=== PATIENT | male | born 1970 | race Two or more races ===

== ENCOUNTER 2020-06-14 15:56 | Outpatient (REF) | payer OTHER, SELFPAY ==
[2020-06-14 16:52] LABS: Basophils Percent Auto 0.3 % (0-2); Hemoglobin 13.6 g/dl (14.0-18.0); Imm Gran Abs Auto 0.02 X10*3/uL (0.00-0.03); Imm Gran Pct Auto 0.2 % (0.0-0.4); Mean Corpuscular HGB Conc 33.2 g/dl (31.0-36.0); Mean Corpuscular Hemoglobin 31.5 pg (27.0-33.0); Mean Corpuscular Volume 94.9 fL (80-98); Red Blood Count 4.32 X10*6/uL (4.60-5.80); Red Cell Distribution Width 12.6 % (11.0-16.0); SCAN SMEAR FLAG 1
[2020-06-14 16:54] LABS: Eosinophils Absolute Auto 0.2 X10*3/uL (0.0-0.4); Eosinophils Percent Auto 2.6 % (0-4); Lymphocytes Absolute Auto 3.1 X10*3/uL (1.2-4.9); Lymphocytes Percent Auto 34.8 % (20-40); MANUAL DIFF FLAG NO; Mean Platelet Volume 13.7 fL (9.4-12.4); Monocytes Absolute Auto 0.6 X10*3/uL (0.1-1.2); Monocytes Percent Auto 7.2 % (2-11); Neutrophils Absolute Auto 4.9 X10*3/uL (2.0-8.3); Neutrophils Percent Auto 54.9 % (45-73); Platelet Count 132 X10*3/uL (160-400); White Blood Count 8.9 X10*3/uL (4.8-10.8)
[2020-06-14 16:55] LABS: PLT ABN DIST 1
[2020-06-14 17:46] LABS: Carbamazepine Tegretol 7.1 mcg/mL (5.0-12.0)
== END 2020-06-14 15:57 | disposition home or self-care (01) ==
LOC: HO.LAB 15:56
PROVIDERS: PCP Internal Medicine; Visit Provider Psychiatry & Neurology Neurology
DX: G44.049 Chronic paroxysmal hemicrania, not intractable (principal)
CPT/HCPCS: 36415; 80156; 85025

== ENCOUNTER 2020-10-23 06:58 | Outpatient (REF) | payer OTHER, SELFPAY ==
[2020-10-23 07:36] LABS: Glucose Urine UA NEG (NEG); Leukocyte Esterase Urine NEG (NEG); Nitrite Urine NEG (NEG); Specific Gravity - Urine 1.025 (1.005-1.025); Urine Blood NEG (NEG); Urine Ketones NEG (NEG); Urine Protein NEG (NEG-TRACE)
[2020-10-23 07:41] LABS: Appearance Urine CLEAR; Color Urine YELLOW
[2020-10-23 07:57] LABS: Alanine Aminotransferase 43 U/L (0-40); Albumin Level 4.2 g/dL (3.5-5.0); Alkaline Phosphatase 69 U/L (39-117); Anion Gap 11 (12-20); Aspartate Amino Transferase 36 U/L (5-37); Bilirubin Total 0.8 mg/dL (0.0-1.0); Blood Urea Nitrogen 19 mg/dL (9-16); Carbon Dioxide 29 mmol/L (22-29); Chloride 104 mmol/L (96-108); Cholesterol 181 mg/dL; Estimated Glomerular Filt Rate > 60; Glucose Fasting 114 mg/dL (60-99); HDL Cholesterol 57 mg/dL; LDL Cholesterol Calculated 97 mg/dl; Potassium 3.9 mmol/L (3.3-5.1); Sodium 140 mmol/L (135-145); Triglycerides 136 mg/dL
[2020-10-23 08:08] LABS: Eosinophils Absolute Auto 0.4 X10*3/uL (0.0-0.4); Hematocrit 46.4 % (42-52); MANUAL DIFF FLAG SCAN; SCAN SMEAR FLAG 1
[2020-10-23 08:10] LABS: Basophils Percent Auto 0.4 % (0-2); Eosinophils Percent Auto 5.1 % (0-4); Hemoglobin 15.4 g/dl (14.0-18.0); Imm Gran Abs Auto 0.01 X10*3/uL (0.00-0.03); Imm Gran Pct Auto 0.1 % (0.0-0.4); Lymphocytes Absolute Auto 2.5 X10*3/uL (1.2-4.9); Lymphocytes Percent Auto 33.3 % (20-40); Mean Corpuscular HGB Conc 33.2 g/dl (31.0-36.0); Mean Corpuscular Hemoglobin 31.2 pg (27.0-33.0); Mean Corpuscular Volume 94.1 fL (80-98); Mean Platelet Volume 13.8 fL (9.4-12.4); Monocytes Absolute Auto 0.6 X10*3/uL (0.1-1.2); Monocytes Percent Auto 7.6 % (2-11); Neutrophils Absolute Auto 4.1 X10*3/uL (2.0-8.3); Neutrophils Percent Auto 53.5 % (45-73); Platelet Count 124 X10*3/uL (160-400); Red Blood Count 4.93 X10*6/uL (4.60-5.80); Red Cell Distribution Width 12.9 % (11.0-16.0); White Blood Count 7.6 X10*3/uL (4.8-10.8)
[2020-10-23 08:16] LABS: PLT ABN DIST 1
[2020-10-23 08:17] LABS: SLIDE REVIEW VERIFIED
[2020-10-23 08:18] LABS: TSH reflex Free T4 1.36 uIU/mL (0.32-4.0)
== END 2020-10-23 06:59 | disposition home or self-care (01) ==
LOC: HO.LAB 06:58
PROVIDERS: PCP Internal Medicine; Visit Provider Internal Medicine
DX: E78.00 Pure hypercholesterolemia, unspecified (principal); E66.3 Overweight; F32.9 Major depressive disorder, single episode, unspecified; K21.9 Gastro-esophageal reflux disease without esophagitis; F17.200 Nicotine dependence, unspecified, uncomplicated
CPT/HCPCS: 36415; 80053; 80061; 81003; 84443; 85025

== ENCOUNTER 2021-05-10 06:14 | Outpatient (REF) | payer OTHER, SELFPAY ==
[2021-05-10 07:14] LABS: Alanine Aminotransferase 19 U/L (0-40); Albumin Level 4.1 g/dL (3.5-5.0); Alkaline Phosphatase 67 U/L (39-117); Anion Gap 9 (12-20); Aspartate Amino Transferase 19 U/L (5-37); Bilirubin Total 0.5 mg/dL (0.0-1.0); Blood Urea Nitrogen 14 mg/dL (9-16); Carbon Dioxide 27 mmol/L (22-29); Chloride 106 mmol/L (96-108); Cholesterol 164 mg/dL; Estimated Glomerular Filt Rate > 60; Glucose Fasting 107 mg/dL (60-99); HDL Cholesterol 50 mg/dL; LDL Cholesterol Calculated 92 mg/dl; Potassium 4.1 mmol/L (3.3-5.1); Sodium 138 mmol/L (135-145); Total Protein 6.7 g/dL (6.5-8.0); Triglycerides 111 mg/dL
[2021-05-10 07:34] LABS: TSH reflex Free T4 0.79 uIU/mL (0.32-4.0); Vitamin D 25-OH Total 51.8 ng/mL (>30)
== END 2021-05-10 06:15 | disposition home or self-care (01) ==
LOC: HO.LAB 06:14
PROVIDERS: PCP Internal Medicine; Visit Provider Internal Medicine
DX: E78.00 Pure hypercholesterolemia, unspecified (principal); E55.9 Vitamin D deficiency, unspecified
CPT/HCPCS: 36415; 80053; 80061; 82306; 84443

== ENCOUNTER 2021-11-08 06:14 | Outpatient (REF) | payer OTHER, SELFPAY ==
[2021-11-08 06:29] LABS: MANUAL DIFF FLAG NO
[2021-11-08 07:33] LABS: Basophils Percent Auto 0.4 % (0-2); Eosinophils Absolute Auto 0.3 X10*3/uL (0.0-0.4); Eosinophils Percent Auto 4.5 % (0-4); Hematocrit 46.7 % (42.0-52.0); Hemoglobin 15.2 g/dl (14.0-18.0); Imm Gran Abs Auto 0.01 X10*3/uL (0.00-0.03); Imm Gran Pct Auto 0.1 % (0.0-0.4); Lymphocytes Absolute Auto 2.3 X10*3/uL (1.2-4.9); Lymphocytes Percent Auto 30.3 % (20-40); Mean Corpuscular HGB Conc 32.5 g/dl (31.0-36.0); Mean Corpuscular Hemoglobin 30.5 pg (27.0-33.0); Mean Corpuscular Volume 93.6 fL (80.0-98.0); Mean Platelet Volume 13.7 fL (9.4-12.4); Monocytes Absolute Auto 0.5 X10*3/uL (0.1-1.2); Monocytes Percent Auto 6.7 % (2-11); Neutrophils Absolute Auto 4.4 x10*3/uL (2.0-8.3); Platelet Count 149 X10*3/uL (160-400); Red Blood Count 4.99 X10*6/uL (4.60-5.80); Red Cell Distribution Width 12.8 % (11.0-16.0); White Blood Count 7.6 X10*3/uL (4.8-10.8)
[2021-11-08 07:35] LABS: Appearance Urine CLEAR; Color Urine YELLOW; Glucose Urine UA NEG (NEG); Leukocyte Esterase Urine NEG (NEG); Nitrite Urine NEG (NEG); UACC Culture Trigger NO; Urine Blood TRACE (NEG); Urine Ketones NEG (NEG); Urine Protein NEG (NEG-TRACE)
[2021-11-08 07:43] LABS: Squamous Epithelial Cell Urine TRACE /LPF; WBC Urine 0 /HPF (0-4)
[2021-11-08 07:54] LABS: Alanine Aminotransferase 12 U/L (0-40); Albumin Level 4.2 g/dL (3.5-5.0); Alkaline Phosphatase 68 U/L (39-117); Anion Gap 11 (12-20); Aspartate Amino Transferase 16 U/L (5-37); Bilirubin Total 0.4 mg/dL (0.0-1.0); Blood Urea Nitrogen 13 mg/dL (9-16); Calcium 9.3 mg/dL (8.4-10.2); Carbon Dioxide 27 mmol/L (22-29); Chloride 105 mmol/L (96-108); Cholesterol 161 mg/dL; Estimated Glomerular Filt Rate > 60; Glucose Fasting 109 mg/dL (60-99); HDL Cholesterol 43 mg/dL; LDL Cholesterol Calculated 97 mg/dl; Potassium 4.2 mmol/L (3.3-5.1); Sodium 139 mmol/L (135-145); Total Protein 6.9 g/dL (6.5-8.0); Triglycerides 109 mg/dL
[2021-11-08 08:15] LABS: TSH reflex Free T4 1.13 uIU/mL (0.32-4.0); Vitamin D 25-OH Total 44.6 ng/mL (>30)
== END 2021-11-08 06:15 | disposition home or self-care (01) ==
LOC: HO.LAB 06:14
PROVIDERS: PCP Internal Medicine; Visit Provider Internal Medicine
DX: Z00.00 Encounter for general adult medical examination without abnormal findings (principal); Z12.5 Encounter for screening for malignant neoplasm of prostate; E78.00 Pure hypercholesterolemia, unspecified; E55.9 Vitamin D deficiency, unspecified
CPT/HCPCS: 36415; 80053; 80061; 81001; 82306; 84153; 84443; 85025

== ENCOUNTER 2022-09-15 06:14 | Outpatient (REF) | payer OTHER, SELFPAY ==
[2022-09-15 07:39] LABS: Estimated Average Glucose 108 mg/dL; Hemoglobin A1c % 5.4 %
[2022-09-15 08:01] LABS: Alanine Aminotransferase 12 U/L (0-40); Albumin Level 4.1 g/dL (3.5-5.0); Alkaline Phosphatase 73 U/L (39-117); Anion Gap 15 (12-20); Aspartate Amino Transferase 14 U/L (5-37); Bilirubin Total 0.5 mg/dL (0.0-1.0); Blood Urea Nitrogen 18 mg/dL (9-16); Calcium 9.4 mg/dL (8.4-10.2); Carbon Dioxide 27 mmol/L (22-29); Chloride 104 mmol/L (96-108); Cholesterol 141 mg/dL; Estimated Glomerular Filt Rate > 60; Glucose Fasting 112 mg/dL (60-99); HDL Cholesterol 44 mg/dL; LDL Cholesterol Calculated 76 mg/dl; Potassium 4.6 mmol/L (3.3-5.1); Sodium 141 mmol/L (135-145); Total Protein 6.5 g/dL (6.5-8.0); Triglycerides 106 mg/dL
== END 2022-09-15 06:15 | disposition home or self-care (01) ==
LOC: HO.LAB 06:14
PROVIDERS: PCP Internal Medicine; Visit Provider Internal Medicine
DX: E78.00 Pure hypercholesterolemia, unspecified (principal); R73.01 Impaired fasting glucose
CPT/HCPCS: 36415; 80053; 80061; 83036

== ENCOUNTER 2023-02-16 06:27 | Outpatient (REF) | payer OTHER, SELFPAY ==
[2023-02-16 06:35] LABS: MANUAL DIFF FLAG NO
[2023-02-16 07:52] LABS: Basophils Percent Auto 0.2 % (0-2); Eosinophils Absolute Auto 0.2 X10*3/uL (0.0-0.4); Eosinophils Percent Auto 2.8 % (0-4); Hematocrit 43.8 % (42.0-52.0); Hemoglobin 14.6 g/dl (14.0-18.0); Imm Gran Abs Auto 0.03 X10*3/uL (0.00-0.03); Imm Gran Pct Auto 0.4 % (0.0-0.4); Lymphocytes Absolute Auto 2.6 X10*3/uL (1.2-4.9); Lymphocytes Percent Auto 31.2 % (20-40); Mean Corpuscular HGB Conc 33.3 g/dl (31.0-36.0); Mean Corpuscular Hemoglobin 30.7 pg (27.0-33.0); Mean Platelet Volume 12.8 fL (9.4-12.4); Monocytes Absolute Auto 0.6 X10*3/uL (0.1-1.2); Monocytes Percent Auto 7.4 % (2-11); Neutrophils Absolute Auto 4.8 x10*3/uL (2.0-8.3); Platelet Count 150 X10*3/uL (160-400); Red Blood Count 4.76 X10*6/uL (4.60-5.80); Red Cell Distribution Width 12.8 % (11.0-16.0); White Blood Count 8.3 X10*3/uL (4.8-10.8)
[2023-02-16 08:29] LABS: Alanine Aminotransferase 12 U/L (0-40); Albumin Level 4.2 g/dL (3.5-5.0); Alkaline Phosphatase 80 U/L (39-117); Anion Gap 10 (12-20); Aspartate Amino Transferase 20 U/L (5-37); Bilirubin Total 0.4 mg/dL (0.0-1.0); Blood Urea Nitrogen 14 mg/dL (9-16); Calcium 9.4 mg/dL (8.4-10.2); Carbon Dioxide 29 mmol/L (22-29); Chloride 97 mmol/L (96-108); Cholesterol 151 mg/dL; Estimated Glomerular Filt Rate > 60; Glucose Fasting 110 mg/dL (60-99); HDL Cholesterol 48 mg/dL; LDL Cholesterol Calculated 83 mg/dl; Potassium 4.2 mmol/L (3.3-5.1); Sodium 132 mmol/L (135-145); Total Protein 6.9 g/dL (6.5-8.0); Triglycerides 102 mg/dL
[2023-02-16 08:36] LABS: Prostate Specific Antigen Scr 0.22 ng/mL (<0.05-4.0); TSH reflex Free T4 1.04 uIU/mL (0.32-4.0); Vitamin D 25-OH Total 46.4 ng/mL (>30)
[2023-02-16 08:48] LABS: Appearance Urine Clear; Color Urine Yellow; Glucose Urine UA Negative (Negative); Leukocyte Esterase Urine Negative (Negative); Nitrite Urine Negative (Negative); Urine Blood Negative (Negative); Urine Ketones Negative (Negative); Urine Protein Negative (Neg-Trace)
== END 2023-02-16 06:28 | disposition home or self-care (01) ==
LOC: HO.LAB 06:27
PROVIDERS: PCP Internal Medicine; Visit Provider Internal Medicine
DX: E78.00 Pure hypercholesterolemia, unspecified (principal); I10 Essential (primary) hypertension; R30.0 Dysuria; E55.9 Vitamin D deficiency, unspecified; Z12.5 Encounter for screening for malignant neoplasm of prostate; Z00.00 Encounter for general adult medical examination without abnormal findings
CPT/HCPCS: 36415; 80053; 80061; 81003; 82306; 84153; 84443; 85025

== ENCOUNTER 2023-06-22 06:19 | Outpatient (REF) | payer OTHER, SELFPAY ==
[2023-06-22 06:29] LABS: MANUAL DIFF FLAG NO
[2023-06-22 07:07] LABS: Basophils Percent Auto 0.4 % (0-2); Eosinophils Absolute Auto 0.2 X10*3/uL (0.0-0.4); Eosinophils Percent Auto 2.6 % (0-4); Hematocrit 43.3 % (42.0-52.0); Hemoglobin 14.7 g/dl (14.0-18.0); Imm Gran Abs Auto 0.03 X10*3/uL (0.00-0.03); Imm Gran Pct Auto 0.4 % (0.0-0.4); Lymphocytes Absolute Auto 2.5 X10*3/uL (1.2-4.9); Lymphocytes Percent Auto 29.4 % (20-40); Mean Corpuscular HGB Conc 33.9 g/dl (31.0-36.0); Mean Corpuscular Hemoglobin 31.5 pg (27.0-33.0); Mean Corpuscular Volume 92.9 fL (80.0-98.0); Mean Platelet Volume 12.5 fL (9.4-12.4); Monocytes Absolute Auto 0.6 X10*3/uL (0.1-1.2); Monocytes Percent Auto 7.7 % (2-11); Neutrophils Percent Auto 59.5 % (45-73); Platelet Count 169 X10*3/uL (160-400); Red Blood Count 4.66 X10*6/uL (4.60-5.80); Red Cell Distribution Width 12.7 % (11.0-16.0); White Blood Count 8.3 X10*3/uL (4.8-10.8)
[2023-06-22 07:35] LABS: Alanine Aminotransferase 11 U/L (0-40); Albumin Level 4.2 g/dL (3.5-5.0); Alkaline Phosphatase 74 U/L (39-117); Anion Gap 13 (12-20); Aspartate Amino Transferase 17 U/L (5-37); Bilirubin Total 0.3 mg/dL (0.0-1.0); Blood Urea Nitrogen 14 mg/dL (9-16); Calcium 9.5 mg/dL (8.4-10.2); Carbon Dioxide 26 mmol/L (22-29); Chloride 98 mmol/L (96-108); Cholesterol 158 mg/dL (<200); Estimated Glomerular Filt Rate > 60; Glucose Fasting 104 mg/dL (60-99); HDL Cholesterol 43 mg/dL (>40); LDL Cholesterol Calculated 87 mg/dL (<100); Sodium 133 mmol/L (135-145); Triglycerides 142 mg/dL (<150)
[2023-06-22 07:38] LABS: Estimated Average Glucose 108 mg/dL; Hemoglobin A1c % 5.4 % (<6.0)
[2023-06-22 07:52] LABS: TSH reflex Free T4 1.23 uIU/mL (0.32-4.0); Vitamin D 25-OH Total 51.5 ng/mL (>30)
[2023-06-22 07:56] LABS: Appearance Urine Cloudy; Color Urine Yellow; Glucose Urine UA Negative (Negative); Leukocyte Esterase Urine Negative (Negative); Nitrite Urine Negative (Negative); Urine Blood Negative (Negative); Urine Ketones Negative (Negative); Urine Protein Negative (Neg-Trace)
== END 2023-06-22 06:20 | disposition home or self-care (01) ==
LOC: HO.LAB 06:19
PROVIDERS: PCP Internal Medicine; Visit Provider Internal Medicine
DX: E78.00 Pure hypercholesterolemia, unspecified (principal); E55.9 Vitamin D deficiency, unspecified; R30.0 Dysuria; R73.01 Impaired fasting glucose; I10 Essential (primary) hypertension
CPT/HCPCS: 36415; 80053; 80061; 81003; 82306; 83036; 84443; 85025

== ENCOUNTER 2023-06-27 12:04 | Outpatient (AMB) | payer OTHER, SELFPAY ==
[2023-06-27 12:33] VITALS: BP 118/90; PULSE 70; O2SAT 97; BMI 29.8
--- NOTE | 2023-06-27 12:33 | MHC.PC.OV ---
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 Required: No Accompanied by: Self / Same As Patient Allergies Sulfa (Sulfonamide Antibiotics) [SULFA (SULFONAMIDE ANTIBIOTICS)] Allergy (Intermediate, Verified 06/27/23 12:39) HIVES Medication List - Last Reconciled 06/27/23 by Neto Ahmadi MD bupropion HCl 150 mg PO QAM cetirizine 10 mg PO DAILY gabapentin 300 mg PO BID hydroxyzine HCl 100 mg PO BID PRN ketoconazole 2% 1 appl topical DAILY linaclotide (Linzess) 145 mcg PO DAILY mirtazapine 30 mg PO BEDTIME 90 days montelukast 10 mg PO QPM nystatin 1 appl topical BID oxcarbazepine 750 mg PO BID pantoprazole 40 mg PO DAILY propranolol 20 mg PO BID sennosides (senna) 17.2 mg (2 x 8.6 mg) PO BEDTIME PRN 30 days simvastatin 20 mg PO QPM Tobacco use date assessed: 06/27/23 Dental Screening Dental Screen Date: 06/27/23 Did you have a dental visit in the last 12 months?: Yes Did you have a dental problem in the last 6 months where you did not have access to dental care?: No Was dental information given to patient?: Patient has dentist HPI [facility] f/u HPI Details Patient comes in today for his follow up visit States that he still has on and off right-sided headaches but they no longer occur daily and his current Rx help relieve them promptly - feels that his headaches are currently much better controlled He denies any dizziness Denies any chest pains, no SOB No nausea/vomiting, no abdominal pain No change in bowel habits noted Has been experiencing recurrent pain over the medial aspect of his left knee lately - states that it sometimes feel numb and tingly Also relates on and off pain over the dorsum of his left foot - denies any recent injury or trauma to his left knee and left foot and would like to see if he can get some x-rays done to check out his symptoms Would also like to get a refill on some unrecalled cream that Dr. Etienne prescribed him a few years ago for some rash/lesion in his groin and scrotal area Had his follow up labs done last week - to discuss his results [facility] Medical History Irritable bowel syndrome (IBS) Constipation Chronic right-sided headache Overweight (BMI 25.0-29.9) Smoker Depression GERD (gastroesophageal reflux disease) Pure hypercholesterolemia Surgical History Hx of colonoscopy (~08/26/18) Family History Father Medical history unknown Mother Medical history unknown Paternal Grandfather Cancer Social History Housing: House Alcohol intake: current Alcohol intake frequency: a few times a month Alcohol type: beer Patient Tobacco Use Status: Current everyday Tobacco user Tobacco use type: Cigarette Cigarettes Per Day: 10 e-Cigarette/Vaping Use: Never Used Second Hand Smoke Exposure: Yes service: No Current occupational status: employed Cognitive needs: No Hearing needs: No Vision needs: No Questionnaire PHQ-9 Over the last 2 weeks, how often have you been bothered by any of the following problems? 1. Little interest or pleasure in doing things: more than half the days 2. Feeling down, depressed, or hopeless: more than half the days 3. Trouble falling or staying asleep, or sleeping too much: more than half the days 4. Feeling tired or having little energy: more than half the days 5. Poor appetite or overeating: not at all 6. Feeling bad about yourself - or that you are a failure or have let yourself or your family down: not at all 7. Trouble concentrating on things, such as reading the newspaper or watching television: not at all 8. Moving or speaking so slowly that other people could have noticed. Or the opposite - being so fidgety or restless that you have been moving around a lot more than usual: not at all 9. Thoughts that you would be better off or of hurting yourself in some way: not at all Total score: 8 Depression Screening Interpretation: Positive Depression Screening Follow-up: Existing condition and In treatment Depression Screening Done: Yes [id number] - PHQ-9 Billing: Yes Source: Developed by Drs. Bereket Tillman, Marie Fatima, Madi Loaiza and colleagues, with an educational odell from [employer]. Thrive Questionnaire Date Thrive assessed: 06/27/23 I am a: Patient What is your living situation today?: I have a steady place to live Within the past 12 months, did the food you bought not last and you didn't have the money to get more?: Never true Within the past 12 months, did you worry whether your food would run out before you got money to buy more?: Never true Do you have trouble paying for medicines?: No Do you have trouble getting transportation to medical appointments?: No Do you have trouble paying your heating and electricity bill?: No Do you have trouble taking care of your child, family member or friend?: No Do you have trouble with day-to-day activities such as bathing, preparing meals, shopping, managing finances, etc.?: No Are you currently unemployed and looking for a job?: No Are you interested in more education?: No Please select the resources that you would like help with: None Currently or been in a relationship where the following occur: no concerns reported AUDIT C Alcohol Use Questionnaire (AUDIT-C) 1. How often do you have a drink containing alcohol?: 2-4 times a month 2. How many drinks containing alcohol do you have on a typical day when you are drinking?: 1 or 2 3. How often do you have six or more drinks on one occasion?: Never Total Score: 2 Score Reviewed/Action Taken: Yes SANTI-7 AMB Questionnaire SANTI-7 Date SANTI - 7 assessed: 06/27/23 Feeling nervous, anxious, or on edge: 3 = Nearly every day Not being able to stop or control worryin = Nearly every day Worrying too much about different things: 0 = Not at all Trouble relaxin = Not at all Being so restless that it is hard to sit still: 0 = Not at all Becoming easily annoyed or irritable: 0 = Not at all Feeling afraid as if something awful might happen: 0 = Not at all Total SANTI-7 score (0-4 normal; 5-9 mild; 10-14 moderate; 15-21 severe): 6 Source: Developed by Drs. Bereket Tillman, Marie Fatima, Madi Loaiza and colleagues, with an educational odell from [employer]. Review of Systems Const Denies fatigue, Denies fever(s), Reports headache(s) (on and off, right-sided ) and Denies malaise Eyes Denies change in vision ENT Denies dysphagia, Denies dizziness, Denies otalgia, Reports headache(s) (on and off, right-sided ), Denies neck pain, Denies odynophagia and Denies sore throat Card Denies chest pain, Denies rapid heart rate, Denies irregular heart rhythm, Denies palpitations and Denies dyspnea Resp Denies cough, Denies dyspnea and Denies wheezing GI Denies abdominal pain, Reports constipation (intermittent), Denies dysphagia, Denies diarrhea, Denies loose stools, Denies nausea, Denies odynophagia and Denies vomiting Denies dysuria and Denies urinary frequency Musc Denies back pain, Reports arthralgias (on and off over the medial aspect of the left knee and top of the left foot) and Denies neck pain Skin/Breast Denies rash Neuro Denies dizziness, Reports headache(s) (on and off, right-sided ) and Denies paresthesias Psych Reports depression (on Rx) Endo Denies fatigue and Denies palpitations Aller/Immun Denies wheezing Physical exam (Primary Care) Vital Signs: Oxygen Delivery Method Room Air 06/27/23 12:33 BMI result Body Mass Index 29.8 Tobacco/Smoking Status: Tobacco use Status Tobacco use date assessed 06/27/23 06/27/23 12:34 Patient Tobacco Use Status Current everyday Tobacco 06/27/23 12:34 Tobacco use type Cigarette 06/27/23 12:34 e-Cigarette/Vaping Use Never Used 06/27/23 12:34 PHQ-9: PHQ-9 Score PHQ-9: Total score 8 06/27/23 12:34 Depression Screening Interpretation: Positive Depression Screening Follow-up: Existing condition and In treatment Thrive Assessment: Date of Thrive Assessment Date Thrive assessed 06/27/23 06/27/23 12:34 Currently or been in a relationship where the following occur: no concerns reported Const General: no acute distress and alert HENMT Ears: TM's normal bilaterally and EAC's normal Throat: Yes posterior oropharynx normal and Yes tonsils normal (no TP congestion) Neck Neck: Yes no lymphadenopathy and Yes supple Thyroid: Thyroid normal Resp Auscultation: clear to auscultation bilaterally, no rales and no wheezes Cardio Rate: regular rate Rhythm: regular rhythm Heart sounds: no murmurs GI Palpation (GI): Soft to palpation and nontender Auscultation: normal bowel sounds General: Yes no CVA tenderness Back/Spine/Pelvis Back: no CVA tenderness Thoracic/Lumbar Spine: thoracic and lumbar spine normal to inspection Skin Rashes: no rashes Extrem General: Yes no clubbing, cyanosis or edema Left lower extremity: knee Details: normal to inspection and foot Details: normal to inspection Results Reviewed Results Reviewed: Laboratory Tests 06/22/23 06/22/23 06/22/23 06:27 06:27 06:27 WBC 8.3 Hgb 14.7 Hct 43.3 Plt Count 169 Sodium 133 L Potassium 4.0 Creatinine 0.94 Estimated GFR > 60 Fasting Glucose 104 H Hemoglobin A1c % 5.4 Calcium 9.5 AST 17 ALT 11 Triglycerides 142 Cholesterol 158 LDL Cholesterol, Calc 87 HDL Cholesterol 43 25-OH Vitamin D Total 51.5 TSH 1.23 Ur Specific [place] Urine Protein Urine Glucose (UA) Urine Blood 06/22/23 06/22/23 06:32 06:32 WBC Hgb Hct Plt Count Sodium Potassium Creatinine Estimated GFR Fasting Glucose Hemoglobin A1c % Calcium AST ALT Triglycerides Cholesterol LDL Cholesterol, Calc HDL Cholesterol 25-OH Vitamin D Total TSH Ur Specific [place] 1.020 Urine Protein Negative Urine Glucose (UA) Negative Urine Blood Negative Assessment and Plan Assessment & Plan (1) Chronic right-sided headache: Code(s): R51.9 - Headache, unspecified; G89.29 - Other chronic pain Plan: Headaches are primarily due to right-sided trigeminal neuralgia States that his headaches are better controlled on his Rx currently Continue Oxcarbazepine 750 mg BID (was switched over from Carbamazepine by neurology) and Gabapentin 300 mg BID Follow-up with [facility] Neurology as scheduled (2) Pure hypercholesterolemia: Code(s): E78.00 - Pure hypercholesterolemia, unspecified Plan: Results of his labs done last week reviewed and discussed with patient Reinforced low cholesterol diet Continue Simvastatin 20 mg QD Will recheck his labs and fasting lipids in 4 months for follow-up (3) Irritable bowel syndrome (IBS): Code(s): K58.9 - Irritable bowel syndrome without diarrhea Qualifiers: Irritable bowel syndrome type: with constipation Qualified Code(s): K58.1 - Irritable bowel syndrome with constipation Plan: Reinforced increased oral fluids and dietary fiber Continue Senna 8.6 mg 1 to 2 tablets Q HS PRN Was on Linzess 145 mcg QD PRN but he stopped taking it as he has to stay home all day due to loose stool / frequent bowel movements for the whole day whenever he takes the Rx; got very constipation when he quit taking Linzess Follow up with [facility] GI as scheduled (4) GERD (gastroesophageal reflux disease): Code(s): K21.9 - Gastro-esophageal reflux disease without esophagitis Qualifiers: Esophagitis presence: esophagitis presence not specified Qualified Code(s): K21.9 - Gastro-esophageal reflux disease without esophagitis Plan: Dietary restrictions reinforced Continue Omeprazole 20 mg daily Follow up with GI as scheduled (5) Impaired fasting glucose: Code(s): R73.01 - Impaired fasting glucose Plan: HgbA1c was normal at 5.3% last week Reinforced low calorie diet/exercise as tolerated (6) Left knee pain: Code(s): M25.562 - Pain in left knee Qualifiers: Chronicity: unspecified Qualified Code(s): M25.562 - Pain in left knee Plan: Will send patient for left knee x-rays for further evaluation (7) Left foot pain: Code(s): M79.672 - Pain in left foot Plan: Per request, will send him for x-rays of the left foot for further evaluation (8) Depression: Code(s): F32.9 - Major depressive disorder, single episode, unspecified Qualifiers: Depression Type: major depressive disorder Major depression recurrence: recurrent Active/Remission status: currently active Major depression episode severity: unspecified Qualified Code(s): F33.9 - Major depressive disorder, recurrent, unspecified Plan: Continue Bupropion 150 mg Q AM and Mirtazapine 30 mg Q HS as well as Hydroxyzine 25 to 50 mg BID PRN Follow up with psychiatry as scheduled States that working and staying busy help him cope better with his mood disorder (9) Smoker: Code(s): F17.200 - Nicotine dependence, unspecified, uncomplicated Plan: Counseled again on smoking cessation (10) Overweight (BMI 25.0-29.9): Code(s): E66.3 - Overweight Plan: Reinforced diet/exercise as tolerated/lose weight Plan Follow up in 4 months Orders: Orders Complete Blood Count Auto Diff 4 Months I10 - Essential (primary) hypertension Lipid Panel 4 Months E78.00 - Pure hypercholesterolemia, unspecified UA CC w/rflx Micro + Cult 4 Months R30.0 - Dysuria XR knee LT 4V Today M25.562 - Pain in left knee XR foot LT min 3V Today M79.672 - Pain in left foot Comprehensive [place]. Panel Fast 4 Months E78.00 - Pure hypercholesterolemia, unspecified TSH reflex Free T4 4 Months E78.00 - Pure hypercholesterolemia, unspecified Vitamin D 25-OH Total 4 Months E55.9 - Vitamin D deficiency, unspecified Coding Level of Care Code Est Pt Level 4 (10514) Diagnoses Chronic right-sided headache R51.9; G89.29 Pure hypercholesterolemia E78.00 Irritable bowel syndrome with constipation K58.1 Irritable bowel syndrome type: with constipation Gastroesophageal reflux disease, unspecified whether esophagitis present K21.9 Esophagitis presence: esophagitis presence not specified Impaired fasting glucose R73.01 Left knee pain, unspecified chronicity M25.562 Chronicity: unspecified Left foot pain M79.672 Episode of recurrent major depressive disorder, unspecified depression episode severity F33.9 Depression Type: major depressive disorder Major depression recurrence: recurrent Active/Remission status: currently active Major depression episode severity: unspecified Smoker F17.200 Overweight (BMI 25.0-29.9) E66.3
== END 2023-06-27 13:03 | disposition home or self-care (01) ==
PROVIDERS: PCP Internal Medicine; Visit Provider Internal Medicine
DX: R51.9 Headache, unspecified (principal); G89.29 Other chronic pain; E78.00 Pure hypercholesterolemia, unspecified; F33.9 Major depressive disorder, recurrent, unspecified; K58.1 Irritable bowel syndrome with constipation; K21.9 Gastro-esophageal reflux disease without esophagitis; R73.01 Impaired fasting glucose; M25.562 Pain in left knee; M79.672 Pain in left foot; F17.210 Nicotine dependence, cigarettes, uncomplicated; E66.3 Overweight
CPT/HCPCS: 99214

== ENCOUNTER 2023-11-01 11:22 | Outpatient (AMB) | payer OTHER, SELFPAY ==
[2023-11-01 11:31] VITALS: BP 120/88; PULSE 97; O2SAT 96; BMI 30.8
--- NOTE | 2023-11-01 11:31 | MHC.PC.OV ---
Vital Signs 11/01/23 11:31 Height 6 ft 1 in Weight 233 lb 6 oz BMI 30.8 BP 120/88 Blood Pressure Location Lt brachial Position Sitting Pulse 97 Pulse Source Pulse Oximeter Pulse Oximetry (%) 96 Oxygen Delivery Method Room Air Intake Visit Reasons: chronic right-sided CHEN, HTN, hyperlipidemia Recruitment Coordinator Required: No Accompanied by: Self / Same As Patient Allergies Sulfa (Sulfonamide Antibiotics) [SULFA (SULFONAMIDE ANTIBIOTICS)] Allergy (Intermediate, Verified 11/01/23 12:03) HIVES Medication List - Last Reconciled 11/01/23 by Neto Ahmadi MD bupropion HCl 150 mg PO QAM cetirizine 10 mg PO DAILY gabapentin 300 mg PO BID hydroxyzine HCl 100 mg PO BID PRN ketoconazole 2% 1 appl topical DAILY linaclotide (Linzess) 145 mcg PO DAILY mirtazapine 30 mg PO BEDTIME 90 days montelukast 10 mg PO QPM nystatin 1 appl topical BID nystatin 1 appl topical TID PRN oxcarbazepine 750 mg PO BID pantoprazole 40 mg PO DAILY propranolol 20 mg PO BID sennosides (senna) 17.2 mg (2 x 8.6 mg) PO BEDTIME PRN 30 days simvastatin 20 mg PO QPM Tobacco use date assessed: 11/01/23 Dental Screening Dental Screen Date: 11/01/23 Did you have a dental visit in the last 12 months?: Yes Did you have a dental problem in the last 6 months where you did not have access to dental care?: No Was dental information given to patient?: Patient has dentist HPI chronic right-sided CHEN, HTN, hyperlipidemia HPI Details Patient comes in today for his follow up visit States that he feels okay Still has on and chronic right-sided headaches but states his headaches have been adequately controlled on his current medications and that they have not been occurring as often as before He denies any dizziness Denies any chest pains, no shortness of breath No nausea/vomiting, no abdominal pain No change in bowel habits noted He was not able to get his follow-up labs done prior to his appointment today - states that he completely forgot about them States that he also needs his [employer] papers for his job filled out again [facility] Medical History (Updated 11/02/23 @ 05:05 by Neto Ahmadi MD) Obesity (BMI 30-39.9) Irritable bowel syndrome (IBS) Constipation Chronic right-sided headache Overweight (BMI 25.0-29.9) Smoker Depression GERD (gastroesophageal reflux disease) Pure hypercholesterolemia Surgical History Hx of colonoscopy (~08/26/18) Family History Father Medical history unknown Mother Medical history unknown Paternal Grandfather Cancer Social History Housing: House Alcohol intake: current Alcohol intake frequency: a few times a month Alcohol type: beer Patient Tobacco Use Status: Current everyday Tobacco user Tobacco use type: Cigarette Cigarettes Per Day: 10 e-Cigarette/Vaping Use: Never Used Second Hand Smoke Exposure: Yes service: No Current occupational status: employed Cognitive needs: No Hearing needs: No Vision needs: No Questionnaire PHQ-9 Over the last 2 weeks, how often have you been bothered by any of the following problems? 1. Little interest or pleasure in doing things: more than half the days 2. Feeling down, depressed, or hopeless: more than half the days 3. Trouble falling or staying asleep, or sleeping too much: more than half the days 4. Feeling tired or having little energy: more than half the days 5. Poor appetite or overeating: not at all 6. Feeling bad about yourself - or that you are a failure or have let yourself or your family down: not at all 7. Trouble concentrating on things, such as reading the newspaper or watching television: not at all 8. Moving or speaking so slowly that other people could have noticed. Or the opposite - being so fidgety or restless that you have been moving around a lot more than usual: not at all 9. Thoughts that you would be better off or of hurting yourself in some way: not at all Total score: 8 Depression Screening Interpretation: Positive Depression Screening Follow-up: Existing condition and In treatment Depression Screening Done: Yes 77199 - PHQ-9 Billing: Yes Source: Developed by Drs. Bereket Tillman, Marie Fatima, Madi Loaiza and colleagues, with an educational odell from [employer]. Thrive Questionnaire Date Thrive assessed: 11/01/23 I am a: Patient What is your living situation today?: I have a steady place to live Within the past 12 months, did the food you bought not last and you didn't have the money to get more?: Never true Within the past 12 months, did you worry whether your food would run out before you got money to buy more?: Never true Do you have trouble paying for medicines?: No Do you have trouble getting transportation to medical appointments?: No Do you have trouble paying your heating and electricity bill?: No Do you have trouble taking care of your child, family member or friend?: No Do you have trouble with day-to-day activities such as bathing, preparing meals, shopping, managing finances, etc.?: No Are you currently unemployed and looking for a job?: No Are you interested in more education?: No Please select the resources that you would like help with: None Currently or been in a relationship where the following occur: no concerns reported THRIVE Score: 0 AUDIT C Alcohol Use Questionnaire (AUDIT-C) 1. How often do you have a drink containing alcohol?: 2-4 times a month 2. How many drinks containing alcohol do you have on a typical day when you are drinking?: 1 or 2 3. How often do you have six or more drinks on one occasion?: Never Total Score: 2 Score Reviewed/Action Taken: Yes SANTI-7 AMB Questionnaire SANTI-7 Date SANTI - 7 assessed: 11/01/23 Feeling nervous, anxious, or on edge: 3 = Nearly every day Not being able to stop or control worryin = Nearly every day Worrying too much about different things: 0 = Not at all Trouble relaxin = Not at all Being so restless that it is hard to sit still: 0 = Not at all Becoming easily annoyed or irritable: 0 = Not at all Feeling afraid as if something awful might happen: 0 = Not at all Total SANTI-7 score (0-4 normal; 5-9 mild; 10-14 moderate; 15-21 severe): 6 Source: Developed by Drs. Bereket Tillman, Madi Ford and colleagues, with an educational odell from [employer]. Review of Systems Const Denies fatigue, Denies fever(s), Reports headache(s) (on and off, right-sided ) and Denies malaise Eyes Denies change in vision ENT Denies dysphagia, Denies dizziness, Denies otalgia, Reports headache(s) (on and off, right-sided ), Denies neck pain, Denies odynophagia and Denies sore throat Card Denies chest pain, Denies rapid heart rate, Denies irregular heart rhythm, Denies palpitations and Denies dyspnea Resp Denies cough, Denies dyspnea and Denies wheezing GI Denies abdominal pain, Reports constipation (intermittent), Denies dysphagia, Denies diarrhea, Denies loose stools, Denies nausea, Denies odynophagia and Denies vomiting Denies dysuria and Denies urinary frequency Musc Denies back pain, Denies arthralgias and Denies neck pain Skin/Breast Denies rash Neuro Denies dizziness, Reports headache(s) (on and off, right-sided ) and Denies paresthesias Psych Reports depression (on Rx) Endo Denies fatigue and Denies palpitations Aller/Immun Denies wheezing Physical exam (Primary Care) Vital Signs: Last Vital Signs Pulse 97 11/01/23 11:31 BP 120/88 11/01/23 11:31 Pulse Ox 96 11/01/23 11:31 Oxygen Delivery Method Room Air 11/01/23 11:31 BMI result Body Mass Index 30.8 Tobacco/Smoking Status: Tobacco use Status Tobacco use date assessed 11/01/23 11/01/23 11:36 Patient Tobacco Use Status Current everyday Tobacco 11/01/23 11:36 Tobacco use type Cigarette 11/01/23 11:36 e-Cigarette/Vaping Use Never Used 11/01/23 11:36 PHQ-9: PHQ-9 Score PHQ-9: Total score 8 11/01/23 12:04 Depression Screening Interpretation: Positive Depression Screening Follow-up: Existing condition and In treatment Thrive Assessment: Date of Thrive Assessment Date Thrive assessed 11/01/23 11/01/23 11:36 Currently or been in a relationship where the following occur: no concerns reported Const General: no acute distress and alert HENMT Ears: TM's normal bilaterally and EAC's normal Throat: Yes posterior oropharynx normal and Yes tonsils normal (no TP congestion) Neck Neck: Yes no lymphadenopathy and Yes supple Thyroid: Thyroid normal Resp Auscultation: clear to auscultation bilaterally, no rales and no wheezes Cardio Rate: regular rate Rhythm: regular rhythm Heart sounds: no murmurs GI Palpation (GI): Soft to palpation and nontender Auscultation: normal bowel sounds General: Yes no CVA tenderness Back/Spine/Pelvis Back: no CVA tenderness Thoracic/Lumbar Spine: thoracic and lumbar spine normal to inspection Skin Rashes: no rashes Extrem General: Yes no clubbing, cyanosis or edema Assessment and Plan Assessment & Plan (1) Chronic right-sided headache: Code(s): R51.9 - Headache, unspecified; G89.29 - Other chronic pain Plan: His headaches are primarily due to right-sided trigeminal neuralgia States that his headaches have been better controlled on his Rx currently Continue Oxcarbazepine 750 mg BID (was switched over from Carbamazepine by neurology) and Gabapentin 300 mg BID Follow-up with [facility] Neurology as scheduled His FMLA papers are filled out again for a year (2) Pure hypercholesterolemia: Code(s): E78.00 - Pure hypercholesterolemia, unspecified Plan: Patient was not able to get his follow up labs done prior to his appointment today As his cholesterol numbers have been well-controlled for a while now, he is advised that he can skip his labs this time Reinforced low cholesterol diet Continue Simvastatin 20 mg QD Will recheck his labs and fasting lipids in 4 months for follow-up - will just have patient use his current orders (updated) for his next lab draw (3) Irritable bowel syndrome (IBS): Code(s): K58.9 - Irritable bowel syndrome without diarrhea Qualifiers: Irritable bowel syndrome type: with constipation Qualified Code(s): K58.1 - Irritable bowel syndrome with constipation Plan: Reinforced increased oral fluids and dietary fiber Continue Senna 8.6 mg 1 to 2 tablets Q HS PRN Was on Linzess 145 mcg QD PRN but he stopped taking it as he has to stay home all day due to loose stool / frequent bowel movements for the whole day whenever he takes the Rx; got very constipation when he quit taking Linzess Follow up with [facility] Gastroenterology as scheduled (4) GERD (gastroesophageal reflux disease): Code(s): K21.9 - Gastro-esophageal reflux disease without esophagitis Qualifiers: Esophagitis presence: esophagitis presence not specified Qualified Code(s): K21.9 - Gastro-esophageal reflux disease without esophagitis Plan: Dietary restrictions reinforced Continue Omeprazole 20 mg QD Follow up with GI as scheduled (5) Impaired fasting glucose: Code(s): R73.01 - Impaired fasting glucose Plan: HgbA1c was normal at 5.3% when last checked a few months ago Reinforced low calorie diet/exercise as tolerated (6) Depression: Code(s): F32.9 - Major depressive disorder, single episode, unspecified Qualifiers: Depression Type: major depressive disorder Major depression recurrence: recurrent Active/Remission status: currently active Major depression episode severity: unspecified Qualified Code(s): F33.9 - Major depressive disorder, recurrent, unspecified Plan: Continue Bupropion 150 mg Q AM and Mirtazapine 30 mg Q HS as well as Hydroxyzine 25 to 50 mg BID PRN Follow up with psychiatry as scheduled States that working and staying busy help him cope better with his mood disorder (7) Smoker: Code(s): F17.200 - Nicotine dependence, unspecified, uncomplicated Plan: Counseled again on smoking cessation (8) Obesity (BMI 30-39.9): Code(s): E66.9 - Obesity, unspecified Plan: Reinforced diet/exercise as tolerated/lose weight Plan Follow up in 4 months Coding Level of Care Code Est Pt Level 4 (27506) Diagnoses Chronic right-sided headache R51.9; G89.29 Pure hypercholesterolemia E78.00 Irritable bowel syndrome with constipation K58.1 Irritable bowel syndrome type: with constipation Gastroesophageal reflux disease, unspecified whether esophagitis present K21.9 Esophagitis presence: esophagitis presence not specified Impaired fasting glucose R73.01 Episode of recurrent major depressive disorder, unspecified depression episode severity F33.9 Depression Type: major depressive disorder Major depression recurrence: recurrent Active/Remission status: currently active Major depression episode severity: unspecified Smoker F17.200 Obesity (BMI 30-39.9) E66.9
== END 2023-11-01 12:22 | disposition home or self-care (01) ==
PROVIDERS: PCP Internal Medicine; Visit Provider Internal Medicine
DX: R51.9 Headache, unspecified (principal); F33.9 Major depressive disorder, recurrent, unspecified; E66.9 Obesity, unspecified; Z68.30 Body mass index [BMI] 30.0-30.9, adult; G89.29 Other chronic pain; E78.00 Pure hypercholesterolemia, unspecified; K58.1 Irritable bowel syndrome with constipation; K21.9 Gastro-esophageal reflux disease without esophagitis; R73.01 Impaired fasting glucose; F17.210 Nicotine dependence, cigarettes, uncomplicated
CPT/HCPCS: 99214

== ENCOUNTER → 2024-02-19 09:35 | Outpatient (BNVA) | payer OTHER, SELFPAY | PROVIDERS: PCP Internal Medicine; Visit Provider Physician Assistant Medical | DX: M23.92 Unspecified internal derangement of left knee (principal); S93.402A Sprain of unspecified ligament of left ankle, initial encounter; W23.1XXA Caught, crushed, jammed, or pinched between stationary objects, initial encounter; X50.1XXA Overexertion from prolonged static or awkward postures, initial encounter | CPT/HCPCS: 73564; 73610; 99204 ==

== ENCOUNTER 2024-02-29 06:11 | Outpatient (REF) | payer OTHER, SELFPAY ==
[2024-02-29 06:23] LABS: MANUAL DIFF FLAG NO
[2024-02-29 07:01] LABS: Basophils Percent Auto 0.4 % (0-2); Eosinophils Absolute Auto 0.3 X10*3/uL (0.0-0.4); Eosinophils Percent Auto 3.6 % (0-4); Hematocrit 41.9 % (42.0-52.0); Hemoglobin 14.4 g/dl (14.0-18.0); Imm Gran Abs Auto 0.02 X10*3/uL (0.00-0.03); Imm Gran Pct Auto 0.3 % (0.0-0.4); Lymphocytes Absolute Auto 2.3 X10*3/uL (1.2-4.9); Lymphocytes Percent Auto 30.7 % (20-40); Mean Corpuscular HGB Conc 34.4 g/dl (31.0-36.0); Mean Corpuscular Hemoglobin 30.9 pg (27.0-33.0); Mean Corpuscular Volume 89.9 fL (80.0-98.0); Mean Platelet Volume 12.1 fL (9.4-12.4); Monocytes Absolute Auto 0.7 X10*3/uL (0.1-1.2); Monocytes Percent Auto 8.7 % (2-11); Neutrophils Absolute Auto 4.2 x10*3/uL (2.0-8.3); Neutrophils Percent Auto 56.3 % (45-73); Platelet Count 172 X10*3/uL (160-400); Red Blood Count 4.66 X10*6/uL (4.60-5.80); Red Cell Distribution Width 13.1 % (11.0-16.0); White Blood Count 7.5 X10*3/uL (4.8-10.8)
[2024-02-29 07:34] LABS: Alanine Aminotransferase 16 U/L (0-40); Albumin Level 4.2 g/dL (3.5-5.0); Alkaline Phosphatase 70 U/L (39-117); Anion Gap 9 (12-20); Aspartate Amino Transferase 19 U/L (5-37); Bilirubin Total 0.3 mg/dL (0.0-1.0); Blood Urea Nitrogen 9 mg/dL (9-16); Calcium 9.2 mg/dL (8.4-10.2); Carbon Dioxide 28 mmol/L (22-29); Chloride 100 mmol/L (96-108); Cholesterol 150 mg/dL (<200); Estimated Glomerular Filt Rate > 60; Glucose Fasting 117 mg/dL (60-99); HDL Cholesterol 42 mg/dL (>40); LDL Cholesterol Calculated 85 mg/dL (<100); Potassium 4.1 mmol/L (3.3-5.1); Sodium 133 mmol/L (135-145); Total Protein 6.8 g/dL (6.5-8.0); Triglycerides 117 mg/dL (<150)
[2024-02-29 07:37] LABS: TSH reflex Free T4 0.99 uIU/mL (0.32-4.0); Vitamin D 25-OH Total 49.2 ng/mL (>30)
[2024-02-29 07:43] LABS: Appearance Urine Clear; Color Urine Yellow; Glucose Urine UA Negative (Negative); Leukocyte Esterase Urine Negative (Negative); Nitrite Urine Negative (Negative); Specific Gravity - Urine 1.015 (1.005-1.025); Urine Blood Negative (Negative); Urine Ketones Negative (Negative); Urine Protein Negative (Neg-Trace)
== END 2024-02-29 06:12 | disposition home or self-care (01) ==
LOC: HO.LAB 06:11
PROVIDERS: PCP Internal Medicine; Visit Provider Internal Medicine
DX: I10 Essential (primary) hypertension (principal); E78.00 Pure hypercholesterolemia, unspecified; E55.9 Vitamin D deficiency, unspecified; R30.0 Dysuria
CPT/HCPCS: 36415; 80053; 80061; 81003; 82306; 84443; 85025

== ENCOUNTER → 2024-03-04 11:00 | Outpatient (BNVA) | payer OTHER, SELFPAY | PROVIDERS: PCP Internal Medicine; Visit Provider Physician Assistant Medical | DX: S93.402D Sprain of unspecified ligament of left ankle, subsequent encounter (principal); W23.1XXD Caught, crushed, jammed, or pinched between stationary objects, subsequent encounter; M23.92 Unspecified internal derangement of left knee | CPT/HCPCS: 99213 ==

== ENCOUNTER 2024-03-05 12:17 | Outpatient (AMB) | payer OTHER, SELFPAY ==
--- NOTE | 2024-03-05 12:22 | MHC.PC.OV ---
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 Accompanied by: Self / Same As Patient Allergies Sulfa (Sulfonamide Antibiotics) [SULFA (SULFONAMIDE ANTIBIOTICS)] Allergy (Intermediate, Verified 03/05/24 12:47) HIVES Medication List - Last Reconciled 03/05/24 by Neto Ahmadi MD bupropion HCl XL 150 mg PO QAM cetirizine 10 mg PO DAILY gabapentin 300 mg PO BID hydroxyzine HCl 100 mg PO BID PRN ketoconazole 2% 1 appl topical DAILY linaclotide (Linzess) 145 mcg PO DAILY mirtazapine 30 mg PO BEDTIME 90 days montelukast 10 mg PO QPM nystatin 1 appl topical TID PRN nystatin 1 appl topical BID oxcarbazepine 750 mg PO BID pantoprazole 40 mg PO DAILY propranolol 20 mg PO BID sennosides (senna) 17.2 mg (2 x 8.6 mg) PO BEDTIME PRN 30 days simvastatin 20 mg PO QPM Tobacco use date assessed: 11/01/23 Dental Screening Dental Screen Date: 11/01/23 HPI hyperlipidemia, chronic headaches, depression HPI Details Patient comes in today for his follow up visit States that he currently feels okay He has been experiencing some issues with his left knee (pain and swelling) when he fell while at work 1.5 months ago and he is currently still on light duty - is seeing the [employer] for this as his injury occurred while he was at work States that he still has occasional headaches but these are mostly well-controlled; he denies any dizziness Denies any chest pains, no SOB No nausea/vomiting, no abdominal pain No change in bowel habits noted He had his follow up labs done a few days ago - to discuss his results [facility] Medical History Obesity (BMI 30-39.9) Irritable bowel syndrome (IBS) Constipation Chronic right-sided headache Overweight (BMI 25.0-29.9) Smoker Depression GERD (gastroesophageal reflux disease) Pure hypercholesterolemia Surgical History Hx of colonoscopy (~08/26/18) Family History Father Medical history unknown Mother Medical history unknown Paternal Grandfather Cancer Social History Housing: House Alcohol intake: current Alcohol intake frequency: a few times a month Alcohol type: beer Patient Tobacco Use Status: Current everyday Tobacco user Tobacco use type: Cigarette Cigarettes Per Day: 10 e-Cigarette/Vaping Use: Never Used Second Hand Smoke Exposure: Yes service: No Current occupational status: employed Current occupational exposures/hazards: No Cognitive needs: No Hearing needs: No Vision needs: No Questionnaire Thrive Questionnaire Date Thrive assessed: 11/01/23 SANTI-7 AMB Questionnaire SANTI-7 Date SANTI - 7 assessed: 03/05/24 Feeling nervous, anxious, or on edge: 3 = Nearly every day Not being able to stop or control worryin = Nearly every day Worrying too much about different things: 0 = Not at all Trouble relaxin = Not at all Being so restless that it is hard to sit still: 0 = Not at all Becoming easily annoyed or irritable: 0 = Not at all Feeling afraid as if something awful might happen: 0 = Not at all Total SANTI-7 score (0-4 normal; 5-9 mild; 10-14 moderate; 15-21 severe): 6 Source: Developed by Drs. Bereket Tillman, Marie Fatima, Madi Loaiza and colleagues, with an educational odell from [employer]. Review of Systems Const Denies chills, Denies fatigue, Denies fever(s) and Reports headache(s) (on and off, right-sided ) ENT Denies dysphagia, Denies dizziness, Denies otalgia, Reports headache(s) (on and off, right-sided ), Denies neck pain, Denies odynophagia and Denies sore throat Card Denies chest pain, Denies rapid heart rate, Denies irregular heart rhythm, Denies palpitations and Denies dyspnea Resp Denies cough, Denies dyspnea and Denies wheezing GI Denies abdominal pain, Reports constipation (intermittent), Denies dysphagia, Denies diarrhea, Denies loose stools, Denies nausea, Denies odynophagia and Denies vomiting Denies dysuria, Denies nocturia, Denies urinary frequency and Denies urinary urgency Musc Denies back pain, Denies arthralgias and Denies neck pain Skin/Breast Denies rash Neuro Denies dizziness, Reports headache(s) (on and off, right-sided ) and Denies paresthesias Psych Reports depression (on Rx) Endo Denies fatigue and Denies palpitations Aller/Immun Denies wheezing Physical exam (Primary Care) Vital Signs: Last Vital Signs Pulse 68 03/05/24 12:25 BP 128/88 03/05/24 13:02 Pulse Ox 98 03/05/24 12:25 Oxygen Delivery Method Room Air 03/05/24 12:25 BMI result Body Mass Index 29.6 Tobacco/Smoking Status: Tobacco use Status Tobacco use date assessed 11/01/23 03/05/24 12:28 Patient Tobacco Use Status Current everyday Tobacco 03/05/24 12:28 Tobacco use type Cigarette 03/05/24 12:28 e-Cigarette/Vaping Use Never Used 03/05/24 12:28 Thrive Assessment: Date of Thrive Assessment Date Thrive assessed 11/01/23 03/05/24 12:28 Const General: no acute distress and alert HENMT Ears: TM's normal bilaterally and EAC's normal Throat: Yes posterior oropharynx normal and Yes tonsils normal (no TP congestion) Neck Neck: Yes no lymphadenopathy and Yes supple Thyroid: Thyroid normal Resp Auscultation: clear to auscultation bilaterally, no rales and no wheezes Cardio Rate: regular rate Rhythm: regular rhythm Heart sounds: no murmurs GI Palpation (GI): Soft to palpation and nontender Auscultation: normal bowel sounds General: Yes no CVA tenderness Back/Spine/Pelvis Back: no CVA tenderness Thoracic/Lumbar Spine: thoracic and lumbar spine normal to inspection Skin Rashes: no rashes Extrem General: Yes no clubbing, cyanosis or edema Results AMB Hemoglobin A1c AMB Hemoglobin A1c 5.6 % Last Edit by LENNY Mcgowan on 03/05/24 13:05 Results Reviewed Results Reviewed: Laboratory Tests 02/29/24 02/29/24 06:20 06:22 WBC 7.5 Hgb 14.4 Hct 41.9 L Plt Count 172 Sodium 133 L Potassium 4.1 Creatinine 0.82 Estimated GFR > 60 Calcium 9.2 AST 19 ALT 16 Triglycerides 117 Cholesterol 150 LDL Cholesterol, Calc 85 HDL Cholesterol 42 25-OH Vitamin D Total 49.2 TSH 0.99 Ur Specific [place] 1.015 Urine Protein Negative Urine Glucose (UA) Negative Urine Blood Negative Urine Nitrite Negative Ur Leukocyte Esterase Negative Laboratory Tests 02/29/24 06:22 Fasting Glucose 117 H Assessment and Plan Assessment & Plan (1) Chronic right-sided headache: Code(s): R51.9 - Headache, unspecified; G89.29 - Other chronic pain Plan: His headaches are primarily due to right-sided trigeminal neuralgia States that his headaches have been well-controlled on his current Rx Continue Oxcarbazepine 750 mg BID (was switched over from Carbamazepine by neurology) and Gabapentin 300 mg BID Follow-up with [facility] Neurology as scheduled (2) Pure hypercholesterolemia: Code(s): E78.00 - Pure hypercholesterolemia, unspecified Plan: Results of his labs done a few days ago reviewed and discussed with patient Reinforced low cholesterol diet Continue Simvastatin 20 mg QD Will recheck his labs and fasting lipids in 4 months for follow-up (3) Irritable bowel syndrome (IBS): Code(s): K58.9 - Irritable bowel syndrome without diarrhea Qualifiers: Irritable bowel syndrome type: with constipation Qualified Code(s): K58.1 - Irritable bowel syndrome with constipation Plan: Reinforced increased oral fluids and dietary fiber Continue Senna 8.6 mg 1 to 2 tablets Q HS PRN He was previously on Linzess 145 mcg QD PRN but he stopped taking it as he has to stay home all day due to loose stool / frequent bowel movements for the whole day whenever he takes the Rx; got very constipation when he quit taking Linzess Follow up with [facility] Gastroenterology as scheduled (4) GERD (gastroesophageal reflux disease): Code(s): K21.9 - Gastro-esophageal reflux disease without esophagitis Qualifiers: Esophagitis presence: esophagitis presence not specified Qualified Code(s): K21.9 - Gastro-esophageal reflux disease without esophagitis Plan: Dietary restrictions reinforced Continue Omeprazole 20 mg QD Follow up with GI as scheduled (5) Impaired fasting glucose: Code(s): R73.01 - Impaired fasting glucose Plan: His FBS was elevated at 117 mg/dl on his recent labs but his in-office HgbA1c today is normal at 5.3%; HgbA1c was also at 5.3% when last checked last year Reinforced low calorie diet/exercise as tolerated (6) Depression: Code(s): F32.9 - Major depressive disorder, single episode, unspecified Qualifiers: Depression Type: major depressive disorder Major depression recurrence: recurrent Active/Remission status: currently active Major depression episode severity: unspecified Qualified Code(s): F33.9 - Major depressive disorder, recurrent, unspecified Plan: Continue Bupropion 150 mg Q AM and Mirtazapine 30 mg Q HS as well as Hydroxyzine 25 to 50 mg BID PRN Follow up with psychiatry as scheduled States that working and staying busy help him cope better with his mood disorder (7) Smoker: Code(s): F17.200 - Nicotine dependence, unspecified, uncomplicated Plan: Counseled again on smoking cessation Per request, will refer him for CT lung screening (8) Overweight (BMI 25.0-29.9): Code(s): E66.3 - Overweight Plan: Reinforced diet/exercise as tolerated/lose weight Plan Follow up in 4 months Orders: Orders Hemoglobin A1c 4 Months E11.9 - Type 2 diabetes mellitus without complications, R73.01 - Impaired fasting glucose Lipid Panel 4 Months E78.00 - Pure hypercholesterolemia, unspecified Comprehensive [place]. Panel Fast 4 Months E78.00 - Pure hypercholesterolemia, unspecified Vitamin D 25-OH Total 4 Months E55.9 - Vitamin D deficiency, unspecified AMB Hemoglobin A1c Today R73.01 - Impaired fasting glucose Complete Blood Count Auto Diff 4 Months D64.9 - Anemia, unspecified TSH reflex Free T4 4 Months E78.00 - Pure hypercholesterolemia, unspecified UA CC w/rflx Micro + Cult 4 Months R30.0 - Dysuria Referrals Thoracic/General Surgery Referral Z12.2 - Encounter for screening for malignant neoplasm of respiratory organs Coding Level of Care Code Est Pt Level 4 (89999) Diagnoses Chronic right-sided headache R51.9; G89.29 Pure hypercholesterolemia E78.00 Irritable bowel syndrome with constipation K58.1 Irritable bowel syndrome type: with constipation Gastroesophageal reflux disease, unspecified whether esophagitis present K21.9 Esophagitis presence: esophagitis presence not specified Impaired fasting glucose R73.01 Episode of recurrent major depressive disorder, unspecified depression episode severity F33.9 Depression Type: major depressive disorder Major depression recurrence: recurrent Active/Remission status: currently active Major depression episode severity: unspecified Smoker F17.200 Overweight (BMI 25.0-29.9) E66.3
[2024-03-05 12:25] VITALS: BP 144/90; PULSE 68; O2SAT 98; BMI 29.6
[2024-03-05 13:02] VITALS: BP 128/88
== END 2024-03-05 13:08 | disposition home or self-care (01) ==
PROVIDERS: PCP Internal Medicine; Visit Provider Internal Medicine
DX: R51.9 Headache, unspecified (principal); F33.9 Major depressive disorder, recurrent, unspecified; G89.29 Other chronic pain; E78.00 Pure hypercholesterolemia, unspecified; K58.1 Irritable bowel syndrome with constipation; K21.9 Gastro-esophageal reflux disease without esophagitis; R73.01 Impaired fasting glucose; F17.200 Nicotine dependence, unspecified, uncomplicated; E66.3 Overweight
CPT/HCPCS: 83036; 99214

== ENCOUNTER → 2024-03-18 10:53 | Outpatient (BNVA) | payer OTHER, SELFPAY | PROVIDERS: PCP Internal Medicine; Visit Provider Physician Assistant Medical | DX: M23.92 Unspecified internal derangement of left knee (principal); S93.402D Sprain of unspecified ligament of left ankle, subsequent encounter; W23.1XXD Caught, crushed, jammed, or pinched between stationary objects, subsequent encounter; X50.1XXD Overexertion from prolonged static or awkward postures, subsequent encounter | CPT/HCPCS: 99213 ==

== ENCOUNTER → 2024-04-15 10:44 | Outpatient (BNVA) | payer OTHER, SELFPAY | PROVIDERS: PCP Internal Medicine; Visit Provider Physician Assistant Medical | DX: M23.92 Unspecified internal derangement of left knee (principal); S93.402D Sprain of unspecified ligament of left ankle, subsequent encounter; W23.1XXD Caught, crushed, jammed, or pinched between stationary objects, subsequent encounter | CPT/HCPCS: 99213 ==

== ENCOUNTER → 2024-04-25 13:41 | Outpatient (BNVA) | payer OTHER, SELFPAY | PROVIDERS: PCP Internal Medicine; Visit Provider Physician Assistant Medical | DX: S93.402D Sprain of unspecified ligament of left ankle, subsequent encounter (principal); W01.0XXD Fall on same level from slipping, tripping and stumbling without subsequent striking against object, subsequent encounter; M23.92 Unspecified internal derangement of left knee | CPT/HCPCS: 99213 ==

== ENCOUNTER 2024-05-05 10:28 | Outpatient (AMB) | payer OTHER, SELFPAY ==
--- NOTE | 2024-05-05 10:51 | MHC.OFFVIS ---
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 Pt states a few months ago he was working on a machine and lost his balance and twisted his leg at work. Pt states his pain has improved a little since it happened but states he has difficulty walking still and when he bears weight on his leg it is painful. Pt denies any previous surgeries or injections in his left leg. Pt states he is currently in PT which he states is helping. 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 Patient states that was working with heavy machinery at his job, when he suffered a twisting injury of both his left ankle and left knee. The patient reports that he has been experiencing pain on the lateral aspect of his distal left lower extremity, from his knee down to his ankle. Patient has been previously evaluated at [facility] for these injuries, and an MRI was ordered at that time. The patient reports that his appointment with us was supposed to be scheduled after his MRI, however his MRI appointment was delayed to next week and [facility] was not able to call to reschedule his appointment for him. Patient is scheduled for MRI of his left knee on 05/12/2024. At this time, the patient reports that this pain only occurs with ambulation, and that he is totally nontender to palpation of the left knee, with only very mild tenderness to palpation of the lateral left ankle. Patient denies any locking or catching of the left knee. Patient denies any numbness or tingling in the left lower extremity. No other acute complaints or concerns at this time. [facility] Medical History Nicotine dependence, cigarettes, uncomplicated Obesity (BMI 30-39.9) Irritable bowel syndrome (IBS) Constipation Chronic right-sided headache Overweight (BMI 25.0-29.9) Depression GERD (gastroesophageal reflux disease) Pure hypercholesterolemia Surgical History Hx of colonoscopy (~08/26/18) Family History Father Medical history unknown Mother Medical history unknown Paternal Grandfather Cancer Social History Housing: House Alcohol intake: current Alcohol intake frequency: a few times a month Alcohol type: beer Patient Tobacco Use Status: Current everyday Tobacco user Tobacco use type: Cigarette Cigarettes Per Day: 10 e-Cigarette/Vaping Use: Never Used Second Hand Smoke Exposure: Yes service: No Current occupational status: employed Current occupational exposures/hazards: No Cognitive needs: No Hearing needs: No Vision needs: No Review of Systems Const All systems reviewed & are unremarkable except as noted in HPI and below Physical Exam Extrem Other: Left knee exam On inspection, there is noted to be very mild edema of the left knee when compared to the right, primarily in the suprapatellar region No erythema, ecchymosis noted No lacerations, abrasions, open areas No evidence of infection noted Patient reports no tenderness to palpation about the medial and lateral joint lines of the left knee Very mild tenderness to the posterior knee No tenderness to palpation of the patella or suprapatellar region No tenderness palpation of the tibial tuberosity Patient is able to extend the knee to 0 degrees without difficulty Patient is able to flex the knee to 130 degrees without difficulty Negative Salomón's test Negative varus and valgus stress testing Negative anterior drawer Negative patellar apprehension Negative patellar grind Left ankle exam There is very mild edema noted about the lateral malleolus of the left ankle when compared to the right No erythema, ecchymosis noted No lacerations, abrasions, open areas No evidence of infection Patient reports very mild tenderness to palpation over the ATFL of the left foot and ankle No other tenderness to palpation noted about the lateral malleolus, medial malleolus, ankle joint line, or proximal foot No significant ligamentous laxity with inversion on the left as compared to the right Patient is able to dorsiflex and plantar flex the left foot without difficulty Patient is able to flex and extend the digits of the left foot without difficulty Distal sensation intact Capillary refill brisk Results Reviewed Results Reviewed: Assessment & Plan Assessment & Plan (1) Left knee pain: Code(s): M25.562 - Pain in left knee Category: Medical Qualifiers: Chronicity: unspecified Qualified Code(s): M25.562 - Pain in left knee (2) Left ankle sprain: Code(s): S93.402A - Sprain of unspecified ligament of left ankle, initial encounter Category: Medical Plan 1. Left knee pain Date of injury 01/19/2024 Patient should proceed with previously scheduled MRI to assess for any potential internal derangement of left knee Patient should follow-up with us after MRI for review of results Patient is amenable to this plan Patient will call us after MRI to schedule follow-up appointment, sooner with any acute concerns 2. Left ankle sprain Date of injury 01/19/2024 Patient appears to be recovering fairly well from his injury Patient is educated about the typical recovery course Patient is educated that he should continue with physical therapy for stabilization and strengthening range of motion of the left ankle Patient is informed that due to being 3 months out from injury, a boot is not indicated at this time Patient is amenable to this plan Patient will follow-up p.r.n. with any acute concerns Coding Level of Care Code New Pt Level 3 (18903) Diagnoses Left knee pain, unspecified chronicity M25.562 Chronicity: unspecified Left ankle sprain S93.402A
== END 2024-05-05 11:28 | disposition home or self-care (01) ==
PROVIDERS: PCP Internal Medicine
DX: M25.562 Pain in left knee (principal); S93.402A Sprain of unspecified ligament of left ankle, initial encounter
CPT/HCPCS: 99203

== ENCOUNTER → 2024-05-05 10:28 | Outpatient (BNVA) | payer OTHER, SELFPAY | PROVIDERS: PCP Internal Medicine | DX: M25.562 Pain in left knee (principal); S93.402A Sprain of unspecified ligament of left ankle, initial encounter | CPT/HCPCS: 99202 ==

== ENCOUNTER → 2024-05-09 12:41 | Outpatient (BNVA) | payer OTHER, SELFPAY | PROVIDERS: PCP Internal Medicine; Visit Provider Physician Assistant Medical | DX: M25.562 Pain in left knee (principal); M23.92 Unspecified internal derangement of left knee; Z91.81 History of falling | CPT/HCPCS: 99213 ==

== ENCOUNTER 2024-05-12 15:49 | Outpatient (REF) | payer OTHER, SELFPAY ==
--- NOTE | ~2024-05-12 | MR_ITS ---
EXAMINATION: MR KNEE WITHOUT CONTRAST, LEFT CLINICAL INFORMATION: Pain. COMPARISON: X-ray of the left knee February 2024. TECHNIQUE: MRI of the knee without contrast was performed using routine sequences on a high-field scanner. FINDINGS: MENISCI: Medial Meniscus: There is irregularity of the articular surface of the posterior horn and body of the meniscus indicative of meniscal tearing. Additional small peripheral meniscal cyst along the posterior aspect of the posterior horn likely sequela of the tearing extending into the periphery of the meniscus in this area. Additionally there may be partially detached/detached meniscal fragment extending into the posterior medial meniscotibial recess. However I suspect this may simply reflect volume average artifact from the inserting semimembranosus tendon. Lateral Meniscus: Intact. LIGAMENTS: Cruciate: There is mucoid degeneration of the anterior cruciate ligament. There is a small 7 mm slightly complex cyst along the anterior distal fibers of the anterior cruciate ligament. PCL intact. Collateral: Intact. EXTENSOR MECHANISM: Intact. ARTICULAR CARTILAGE/BONE: Patellofemoral Compartment: Nonuniform up to high-grade cartilage loss in the medial trochlea. Minimal cartilage heterogeneity in the lateral facet of patella. There are marginal osteophytes. Findings indicative of mbqp-hi-nzgqyapp patellofemoral arthrosis. Medial Compartment: There are marginal osteophytes. There is a large marginal osteophyte along the posterior lateral aspect of the medial tibial articular surface. There is scattered cartilage heterogeneity throughout the weightbearing portion of compartment with areas of partial thickness cartilage loss. Findings indicative of pjwp-xw-uxohabut arthrosis. There is some minimal cartilage heterogeneity of the posterior tibial articular cartilage. Femoral cartilage intact. Overall mild arthrosis. Lateral Compartment: There is a large Baldwin's cyst measuring up to 4.7 cm transverse and 10 cm craniocaudal. JOINT FLUID AND BURSAE: There is a mild joint effusion and synovitis. No loose body detected. MR/MR knee LT wo con IMPRESSION: 1. Tear of the medial meniscus. Possible detached or partially detached meniscal fragment extending into the posterior medial meniscotibial recess. I suspect this may be volume average artifact related to the insertion of the semimembranosus tendon. 2. Enct-lh-urtjwfmq patellofemoral arthrosis. 3. Mild arthrosis of the medial compartment. 4. Large Baldwin's cyst. 5. Mild joint effusion and synovitis. 6. Mucoid degeneration of the anterior cruciate ligament with a small cruciate cyst. Electronically signed by: Karthikeyan Baldwin MD 05/15/2024 10:20 PM EDT RP
== END 2024-05-12 15:50 | disposition home or self-care (01) ==
LOC: HO.MRI 15:49
PROVIDERS: PCP Internal Medicine; Visit Provider Internal Medicine
DX: M22.3X2 Other derangements of patella, left knee (principal)
CPT/HCPCS: 73721

== ENCOUNTER 2024-05-23 10:07 | Outpatient (AMB) | payer OTHER, SELFPAY ==
--- NOTE | 2024-05-23 10:29 | MHC.OFFVIS ---
Intake Visit Reasons: OV- MRI review LT knee Intake Note: Cheo is a 53 year old male who presents today for an MRI review of his left knee. 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 Today, the patient reports that his symptoms have improved minimally since last appointment, and states that he is still experiencing pain, locking, catching of the left knee. The patient also continues to report difficulty with ambulation, that worsens while going up or down stairs. Patient's MRI was performed on 05/12/2024. The patient does report that his left ankle has improved significantly since date of injury. Patient inquires as to what the results of his MRI were. No other acute complaints or concerns at this time. [facility] Medical History Nicotine dependence, cigarettes, uncomplicated Obesity (BMI 30-39.9) Irritable bowel syndrome (IBS) Constipation Chronic right-sided headache Overweight (BMI 25.0-29.9) Depression GERD (gastroesophageal reflux disease) Pure hypercholesterolemia Surgical History Hx of colonoscopy (~08/26/18) Family History Father Medical history unknown Mother Medical history unknown Paternal Grandfather Cancer Social History Housing: House Alcohol intake: current Alcohol intake frequency: a few times a month Alcohol type: beer Patient Tobacco Use Status: Current everyday Tobacco user Tobacco use type: Cigarette Cigarettes Per Day: 10 e-Cigarette/Vaping Use: Never Used Second Hand Smoke Exposure: Yes service: No Current occupational status: employed Current occupational exposures/hazards: No Cognitive needs: No Hearing needs: No Vision needs: No Physical Exam Extrem Other: On inspection, there is no visible deformity of the left knee Mild edema of the left knee compared to the right No erythema, ecchymosis noted No lacerations, abrasions, open areas No evidence of infection Tenderness to palpation of both the medial and lateral joint lines of the left knee, worse in the medial aspect Tenderness to palpation of the posterior aspect of the knee, worse in the medial aspect Patient reports no tenderness to palpation of the quad tendon, patellar tendon, patella, tibial tubercle Patient is able to extend the left knee to 0 degrees without difficulty Patient is able to flex to approximately 120 degrees, but reports some discomfort at the extremes of range of No ligamentous laxity noted Distal sensation intact Capillary refill brisk Negative Salomón's Results Reviewed Results Reviewed: MRI obtained on 05/12/2024 and independently reviewed by me, Huy Casey PA-C, demonstrates tear of the left medial meniscus, as well as mild arthrosis of the medial compartment of the left knee as well as xayg-qu-vmdpviba arthrosis of the patellofemoral joint. No fracture or acute bony abnormality noted MR/MR knee LT wo con IMPRESSION: 1. Tear of the medial meniscus. Possible detached or partially detached meniscal fragment extending into the posterior medial meniscotibial recess. I suspect this may be volume average artifact related to the insertion of the semimembranosus tendon. 2. Sseu-fr-jxlfuwnd patellofemoral arthrosis. 3. Mild arthrosis of the medial compartment. 4. Large Baldwin's cyst. 5. Mild joint effusion and synovitis. 6. Mucoid degeneration of the anterior cruciate ligament with a small cruciate cyst. Electronically signed by: Karthikeyan Baldwin MD 05/15/2024 10:20 PM Assessment & Plan Assessment & Plan (1) Tear of medial meniscus of left knee: Code(s): S83.242A - Other tear of medial meniscus, current injury, left knee, initial encounter Category: Medical Plan 1. Medial meniscus tear of left knee Date of injury 01/19/2024 Patient was discussed with Dr. Green, who was not available in clinic to see the patient with me today, and a collaborative treatment plan was formed: I educated the patient about the condition. I discussed both operative and nonoperative treatment options. The patient would like to proceed with surgery. The risks and benefits of operative treatment were discussed with the patient and the patient wishes to proceed with surgery. These risks include, but are not limited to, risk of damage to blood vessels, nerves, tendons, infection, recurrence, incomplete relief of preoperative symptoms, persistent pain, possible need for further surgery, and the risks associated with regional blocks and/or anesthesia. Plan is to take the patient to the operating room at some point in the next few weeks for the following procedures: 1. Left knee arthroscopy with potential meniscus shaving versus repair All of the preoperative paperwork including the consent was discussed today. All of the patient's questions were answered in the clinic today. The patient understands that they will be in contact with our certified surgical first assistant to discuss scheduling their procedure. Patient denies diabetes, blood thinners, asthma, heart issues, lung issues, kidney issues Coding Level of Care Code Est Pt Level 4 (05536) Diagnoses Tear of medial meniscus of left knee S83.242A
== END 2024-05-23 11:30 | disposition home or self-care (01) ==
PROVIDERS: PCP Internal Medicine
DX: S83.242A Other tear of medial meniscus, current injury, left knee, initial encounter (principal); Z04.2 Encounter for examination and observation following work accident
CPT/HCPCS: 99214

== ENCOUNTER → 2024-05-23 10:07 | Outpatient (BNVA) | payer OTHER, SELFPAY | PROVIDERS: PCP Internal Medicine | DX: S83.242A Other tear of medial meniscus, current injury, left knee, initial encounter (principal) | CPT/HCPCS: 99212 ==

== ENCOUNTER 2024-06-05 13:52 | Outpatient (AMB) | payer OTHER, SELFPAY ==
--- NOTE | 2024-06-05 14:15 | A.OFFVIS_ITS ---
Intake Visit Reasons: OV - Left MMT - Lt Knee 06/11 Intake Note: Cheo is a 54 year old venezuelan speaking male who presents today for a follow up of his Left Knee Medial Meniscus Tear DOI 01/19/24. This is a WC injury, patient was working on a machine when he slipped, lost his balance and twisted the leg. Currently he is working 6 hours per day, mostly sedentary, but allowing for ambulation and movement at least every hour. Patient is also advised that he should continue to avoid any heavy lifting. Patient is looking to discuss treatment options as he currently feels that there was miscommunication in his last visit. Allergies Sulfa (Sulfonamide Antibiotics) [SULFA (SULFONAMIDE ANTIBIOTICS)] Allergy (Intermediate, Verified 05/23/24 10:29) HIVES HPI HPI OV - Left MMT - Lt Knee 06/11: Details: Cheo is a 54 year old venezuelan speaking male who presents today for a follow up of his Left Knee Medial Meniscus Tear DOI 01/19/24. This is a WC injury, patient was working on a machine when he slipped, lost his balance and twisted the leg. Currently he is working 6 hours per day, mostly sedentary, but allowing for ambulation and movement at least every hour. Patient is also advised that he should continue to avoid any heavy lifting. Patient is looking to discuss treatment options as he currently feels that there was miscommunication in his last visit. [facility] Medical History Nicotine dependence, cigarettes, uncomplicated Obesity (BMI 30-39.9) Irritable bowel syndrome (IBS) Constipation Chronic right-sided headache Overweight (BMI 25.0-29.9) Depression GERD (gastroesophageal reflux disease) Pure hypercholesterolemia Surgical History Hx of colonoscopy (~08/26/18) Family History Father Medical history unknown Mother Medical history unknown Paternal Grandfather Cancer Social History Housing: House Alcohol intake: current Alcohol intake frequency: a few times a month Alcohol type: beer Patient Tobacco Use Status: Current everyday Tobacco user Tobacco use type: Cigarette Cigarettes Per Day: 10 e-Cigarette/Vaping Use: Never Used Second Hand Smoke Exposure: Yes service: No Current occupational status: employed Current occupational exposures/hazards: No Cognitive needs: No Hearing needs: No Vision needs: No Physical Exam Extrem Other: On physical exam he has medial joint line tenderness and a painful medial Salomón's in terminal flexion. He has a mildly positive 1+ anterior drawer of the left ankle compared to the right ankle with tenderness over the ATFL. There is no effusion. Results Reviewed Results Reviewed: I personally reviewed the MR images. 1. Tear of the medial meniscus. Possible detached or partially detached meniscal fragment extending into the posterior medial meniscotibial recess. I suspect this may be volume average artifact related to the insertion of the semimembranosus tendon. 2. Htha-wo-nezqgaau patellofemoral arthrosis. 3. Mild arthrosis of the medial compartment. 4. Large Baldwin's cyst. 5. Mild joint effusion and synovitis. Assessment & Plan Assessment & Plan (1) Tear of medial meniscus of left knee: Code(s): S83.242A - Other tear of medial meniscus, current injury, left knee, initial encounter Category: Medical Plan: This is a 54-year-old gentleman who injured his left knee and left ankle in a workplace injury approximately 5 months ago. He has been trying to work but continues to have pain throughout the day. He has sharp pain with twisting activities and his knee swells at the end of the day. He feels he is unable to walk comfortably because of both his knee and his ankle. I reviewed his MRI and his physical exam and his clinical complaints and I recommend left knee arthroscopy for a medial meniscus tear. I reviewed this with him and discussed that his medial-sided sharp knee pain should improve with surgery but that his patellofemoral arthritis may continue to cause him slight discomfort and that recovery from arthroscopy may be delayed because of this. He expressed understanding. At this time he should abstain from work. I anticipate return to regular duty 6 weeks postoperatively. As for his ankle I think we will initiate more aggressive physical therapy postoperatively and try to obtain normal gait mechanics. (2) Sprain of anterior talofibular ligament of left ankle: Code(s): S93.492A - Sprain of other ligament of left ankle, initial encounter Category: Medical Plan: He has tenderness over his ATFL and I recommend physical therapy and we will initiate this after knee arthroscopy. Coding Level of Care Code Est Pt Level 4 (31795) Diagnoses Tear of medial meniscus of left knee S83.242A Sprain of anterior talofibular ligament of left ankle S93.492A
== END 2024-06-05 15:27 | disposition home or self-care (01) ==
PROVIDERS: PCP Internal Medicine; Visit Provider Orthopaedic Surgery
DX: S83.242A Other tear of medial meniscus, current injury, left knee, initial encounter (principal); S93.492A Sprain of other ligament of left ankle, initial encounter; X50.1XXA Overexertion from prolonged static or awkward postures, initial encounter; Z04.2 Encounter for examination and observation following work accident
CPT/HCPCS: 99214

== ENCOUNTER → 2024-06-05 13:52 | Outpatient (BNVA) | payer OTHER, SELFPAY | PROVIDERS: PCP Internal Medicine; Visit Provider Orthopaedic Surgery | DX: S83.242D Other tear of medial meniscus, current injury, left knee, subsequent encounter (principal); S93.492D Sprain of other ligament of left ankle, subsequent encounter | CPT/HCPCS: 99212 ==

== ENCOUNTER 2024-06-06 10:24 | Outpatient (REF) | payer OTHER, SELFPAY ==
--- NOTE | ~2024-06-06 | CT_ITS ---
EXAMINATION: CT LOW-DOSE SCREENING CHEST WITHOUT CONTRAST CLINICAL INFORMATION: Nicotine dependence, cigarettes, uncomplicated. The patient is a current smoker with a 38 pack-year history of smoking. COMPARISON: None available. TECHNIQUE: Multidetector volumetric CT imaging of the chest is performed on a Siemens SOMATOM Definition scanner without contrast using low dose technique. Additional 2D coronal and sagittal reformatted images and axial 3D maximum intensity projection (MIP) images are generated on the CT workstation. This CT examination was performed using dose optimization techniques as appropriate, variously including the following: *Automated exposure control *Adjustment of mA and/or kV according to patient size (this includes techniques or standardized protocols for targeted exams where dose is matched to indication/reason for exam; i.e. extremities or head) *Use of iterative reconstruction technique TOTAL EXAM DLP: 65 mGy-cm. CTDIvol: 1.81 mGy. FINDINGS: PULMONARY NODULES: Splenic calcified granuloma is present. Some small pulmonary nodules are present including 3.5 mm right upper lobe (5:98, 3.7 mm right lower lobe (5:215), and an ill-defined 4.6 mm density in the left lower lobe (5:308). No suspicious lung masses seen. LUNGS: Lungs bilaterally symmetrically expanded. No significant emphysema. There is mild bronchial thickening without bronchiectasis. No effusion or pneumothorax. Central airways patent. MEDIASTINUM: No mediastinal, hilar or axillary adenopathy or free fluid collection. CORONARY ARTERY CALCIFICATION: None visualized on this study. THYROID GLAND: Unremarkable to the extent seen. CARDIOVASCULAR STRUCTURES: Aortic and heart size normal. No pericardial effusion. CHEST WALL/AXILLA: Unremarkable. UPPER ABDOMEN: Included portions of the solid organs in the upper abdomen unremarkable on noncontrast imaging. OSSEOUS STRUCTURES: No suspicious focal findings. CT/CT lung screening IMPRESSION: No findings seen suspicious for a malignancy. ASSESSMENT: 1. Lung-RADS Category 2: Benign appearance or behavior of nodules. N/A 2. Lung-RADS Category S: Negative. There are no clinically significant or potentially clinically significant findings not related to the lungs requiring urgent additional evaluation. RECOMMENDATION: Continued routine annual low-dose CT lung screening in 1 year is recommended. An order for CT CHEST LOW DOSE CANCER SCREENING ([id number]) can be placed. Electronically signed by: Tra Morales MD 07/26/2024 04:02 PM SANDHYA ELLIS
== END 2024-06-06 10:25 | disposition home or self-care (01) ==
LOC: HO.CT 10:24
PROVIDERS: PCP Internal Medicine; Visit Provider Physician Assistant Medical
DX: Z12.2 Encounter for screening for malignant neoplasm of respiratory organs (principal); F17.210 Nicotine dependence, cigarettes, uncomplicated
CPT/HCPCS: 71271

== ENCOUNTER 2024-06-11 06:00 | Day surgery (SDC) | payer OTHER, SELFPAY ==
[2024-06-09 11:52] VITALS: BMI 29.6
--- NOTE | 2024-06-10 09:08 | HO.ANESPROP2 ---
Documented by User: Christine Gruber NP 06/10/24 09:09 HPI - Anesthesia Eval Consult details Narrative: 54yo M for Left Knee Arthroscopy PMFSH Active Problems Active Problems: All Active Problems Sprain of anterior talofibular ligament of left ankle (Acute) Tear of medial meniscus of left knee (Acute) Left ankle sprain (Acute) Nicotine dependence, cigarettes, uncomplicated (Acute) Obesity (BMI 30-39.9) (Acute) Left foot pain (Acute) Left knee pain (Acute) Irritable bowel syndrome (IBS) (Acute) Right foot pain (Acute) Tinea cruris (Acute) Impaired fasting glucose (Acute) Constipation (Acute) Grief reaction (Acute) Pure hypercholesterolemia (Acute) GERD (gastroesophageal reflux disease) (Acute) Depression (Acute) Overweight (BMI 25.0-29.9) (Acute) Chronic right-sided headache (Acute) Past Medical History Medical History Nicotine dependence, cigarettes, uncomplicated Obesity (BMI 30-39.9) Irritable bowel syndrome (IBS) Constipation Chronic right-sided headache Overweight (BMI 25.0-29.9) Depression GERD (gastroesophageal reflux disease) Pure hypercholesterolemia Family History Family History Father Medical history unknown Mother Medical history unknown Paternal Grandfather Cancer Surgical History Surgical History Hx of colonoscopy (~08/26/18) Social History Social History Housing: House Alcohol intake: current Alcohol intake frequency: does not drink Alcohol type: beer Patient Tobacco Use Status: Current everyday Tobacco user Tobacco use type: Cigarette Cigarettes Per Day: 10 Smoked in Last 30 Days: No e-Cigarette/Vaping Use: Never Used Second Hand Smoke Exposure: Yes Have you been hit, kicked, punched, or otherwise hurt by someone within the past year? If so, by whom?: No Are you DNR?: No Advance Directives: No Advance Directives Information Provided: Yes Recently lost weight without trying: No Nutrition Risks: No Nutritional Risk service: No Current occupational status: employed Current occupational exposures/hazards: No Cognitive needs: No Hearing needs: No Vision needs: No Meds Allergies Allergy/AdvReac Type Severity Reaction Status Date / Time Sulfa (Sulfonamide Allergy Intermediate HIVES Verified 05/23/24 10:29 Antibiotics) [SULFA (SULFONAMIDE ANTIBIOTICS)] Home Medications ?Medication ?Instructions ?Recorded ?Confirmed ?Last Taken ?Type bupropion HCl 150 mg 24 hr tablet, 150 mg PO QAM depressive disorder 05/09/21 03/05/24 06/11/24 History extended release cetirizine 10 mg tablet 10 mg PO DAILY 02/14/22 03/05/24 06/11/24 History hydroxyzine HCl 50 mg tablet 100 mg PO BID PRN anxiety 02/14/22 03/05/24 06/11/24 History propranolol 20 mg tablet 20 mg PO BID 02/14/22 03/05/24 06/11/24 History gabapentin 300 mg capsule 300 mg PO BID 10/23/22 03/05/24 06/11/24 History oxcarbazepine 300 mg tablet 750 mg PO BID 10/23/22 03/05/24 06/11/24 History propranolol 40 mg tablet 40 mg PO BID 05/05/24 06/11/24 History Exam Height,Weight and Vital Signs: Height 6 ft 1 in Weight 101.605 kg Pertinent Lab Results Pertinent Lab Results: Laboratory Tests 02/29/24 06:22 WBC 7.5 Hgb 14.4 Hct 41.9 L Plt Count 172 Sodium 133 L Potassium 4.1 Chloride 100 Carbon Dioxide 28 BUN 9 Creatinine 0.82 Assessment and Plan Assessment Anesthesia Assessment: Chart Reviewed Documented by User: Anusha Poon MD 06/11/24 08:52 PMFSH Past Medical History Medical History Nicotine dependence, cigarettes, uncomplicated Obesity (BMI 30-39.9) Irritable bowel syndrome (IBS) Constipation Chronic right-sided headache Overweight (BMI 25.0-29.9) Depression GERD (gastroesophageal reflux disease) Pure hypercholesterolemia Family History Family History Father Medical history unknown Mother Medical history unknown Paternal Grandfather Cancer Family history of problems with anesthesia: No Surgical History Surgical History Hx of colonoscopy (~08/26/18) History of Problems with Anesthesia: No Social History Social History Housing: House Alcohol intake: current Alcohol intake frequency: does not drink Alcohol type: beer Patient Tobacco Use Status: Current everyday Tobacco user Tobacco use type: Cigarette Cigarettes Per Day: 10 Smoked in Last 30 Days: No e-Cigarette/Vaping Use: Never Used Second Hand Smoke Exposure: Yes Have you been hit, kicked, punched, or otherwise hurt by someone within the past year? If so, by whom?: No Are you DNR?: No Advance Directives: No Advance Directives Information Provided: Yes Recently lost weight without trying: No Nutrition Risks: No Nutritional Risk service: No Current occupational status: employed Current occupational exposures/hazards: No Cognitive needs: No Hearing needs: No Vision needs: No Meds Allergies Allergy/AdvReac Type Severity Reaction Status Date / Time Sulfa (Sulfonamide Allergy Intermediate HIVES Verified 05/23/24 10:29 Antibiotics) [SULFA (SULFONAMIDE ANTIBIOTICS)] Home Medications ?Medication ?Instructions ?Recorded ?Confirmed ?Last Taken ?Type bupropion HCl 150 mg 24 hr tablet, 150 mg PO QAM depressive disorder 05/09/21 03/05/24 06/11/24 History extended release cetirizine 10 mg tablet 10 mg PO DAILY 02/14/22 03/05/24 06/11/24 History hydroxyzine HCl 50 mg tablet 100 mg PO BID PRN anxiety 02/14/22 03/05/24 06/11/24 History propranolol 20 mg tablet 20 mg PO BID 02/14/22 03/05/24 06/11/24 History gabapentin 300 mg capsule 300 mg PO BID 10/23/22 03/05/24 06/11/24 History oxcarbazepine 300 mg tablet 750 mg PO BID 10/23/22 03/05/24 06/11/24 History propranolol 40 mg tablet 40 mg PO BID 05/05/24 06/11/24 History Exam Airway Mallampati Class: II TM Dist: >3cm Neck ROM: Full Heart: rrr Lungs: cta Assessment and Plan Assessment Anesthesia Assessment: Anesthesia Plan Discussed Final Anesthetic Review Family History of Problems with Anesthesia: No History of Problems with Anesthesia: No NPO: Yes ASA Class: II Final Preanesthetic Review: No Changes in Pt Med Stat, Meds/Allgs Chart Reviewed, Consent Obtained/Reviewed and Anes Risks/Benef Reviewed Patient Risk: Low Procedure Risk: Low Anesthetic Plan Anesthetic Plan: GA Disposition: Standard PACU
[2024-06-11 06:11] VITALS: BP 166/95; PULSE 64; RESP 20; TEMP 36.9; O2SAT 97; BMI 29.9
[2024-06-11] MEDS: Lactated Ringers 1,000 ML 100 ML IVCONT (06:34)
--- NOTE | 2024-06-11 07:32 | MHC.SHP ---
Pre-Procedural Eval Section A - 24 Hr Update-Section A only Date of Service: 06/11/24 The patient is an INPATIENT: No Changes since office visit: No Cold of Flu in the past 2 weeks, No New Medical Problems, No Changes in Medication and No Patient answered all questions The patient has been examined within 24 hours of the surgical procedure. The History & Physical has been completed within 30 days and I have reviewed it.: Yes Section B - Complete if H&P > 30 days Chief Complaint: Other tear of medial meniscus, current injury, Allergies: Allergies Allergy/AdvReac Type Severity Reaction Status Date / Time Sulfa (Sulfonamide Allergy Intermediate HIVES Verified 05/23/24 10:29 Antibiotics) [SULFA (SULFONAMIDE ANTIBIOTICS)] Plan I have reviewed the history and physical and performed a pertinent physical examination on my patient. No changes have occurred unless specified. Time Spent With Patient Time: Total time managing care of this patient today ____ minutes.
--- NOTE | 2024-06-11 08:16 | PM.OP ---
Brief Operative Note Date of Service: 06/11/24 Pre-op diagnosis: Left knee MMT Post-op diagnosis: other (1) MMT 2) Chondromalacia MFC ) Procedure: Partial medial meniscectomy with chondroplasty left knee Implants: none Surgeon: Brian Green MD Anesthesia: GETA, GLMA and local Was an Field Marketing Associate used for this Procedure?: No Estimated blood loss (mL): 5 Tourniquet time (min): 20 IV fluids (mL): 500 Pathology: none sent Condition: stable Disposition: PACU
[2024-06-11 08:20] VITALS: BP 130/82; PULSE 59; RESP 16; TEMP 36.1; O2SAT 99
[2024-06-11 08:25] VITALS: BP 139/86; PULSE 60; RESP 16; O2SAT 100
--- NOTE | 2024-06-11 08:26 | W.PM.OPN ---
Operative Note Operative Note Date of Service: 06/11/24 Narrative: Date of Service: 06/11/24 Pre-op diagnosis: Left knee MMT Post-op diagnosis: other (1) MMT 2) Chondromalacia MFC ) Procedure: Partial medial meniscectomy with chondroplasty left knee Implants: none Surgeon: Brian Green MD Anesthesia: GETA, GLMA and local Was an Pyrotechnics Press Tender used for this Procedure?: No Estimated blood loss (mL): 5 Tourniquet time (min): 20 IV fluids (mL): 500 Pathology: none sent Condition: stable Disposition: PACU Procedure in detail: Patient was brought to the operating room placed supine on the arthroscopic table and prepped and draped in standard sterile fashion. A time-out was called to identify proper site proper procedure proper surgeon and IV antibiotics per weight were administered. I began by exsanguinating the limb and insufflating tourniquet to 300 mm Hg. Then made a standard anterolateral stab incision. The knee was insufflated with water and 30 degree arthroscope was placed. There was grade 1 fibrillations of the patella and G# changes of the medial aspect of the trochlea but the suprapatellar pouch and the gutters were clean. I descended into the medial compartment where I made my medial portal under direct visualization. There was obvious of complex tear of the posterior horn of the medial meniscus. The root was intact and there was grade 2 changes in the femoral condyle but minimal. I used a combination of biter shaver and cautery to remove unstable portions of the meniscus. A chaver was used to trim loose cartilage and fibrillations of the MFC. Approximately 30% meniscal volume was removed. Once I was satsfied with this the ACL was examined and found to be intact and the lateral compartment also was without the need for intervention. I then removed all instrumentation and closed the portals with skin glue. 25 mL of 2% Marcaine with epinephrine was injected into the joint and the surrounding soft tissues. Patient was then placed in sterile dressing extubated brought recovery room stable condition. There were no known complications.
[2024-06-11 08:30] VITALS: BP 146/94; PULSE 63; RESP 18; O2SAT 100
[2024-06-11 08:35] VITALS: BP 158/103; PULSE 63; RESP 18; O2SAT 99
[2024-06-11 08:50] VITALS: BP 147/94; PULSE 63; RESP 18; TEMP 36; O2SAT 99
== END 2024-06-11 09:44 | disposition home or self-care (01) ==
PROVIDERS: PCP Internal Medicine; Visit Provider Orthopaedic Surgery
PROC: (CPT 29870; principal; 2024-06-11 07:30)
DX: S83.232A Complex tear of medial meniscus, current injury, left knee, initial encounter (principal); M94.262 Chondromalacia, left knee; S93.492A Sprain of other ligament of left ankle, initial encounter; M17.12 Unilateral primary osteoarthritis, left knee; M25.462 Effusion, left knee; M71.22 Synovial cyst of popliteal space [Baker], left knee; M65.862 Other synovitis and tenosynovitis, left lower leg; W18.49XA Other slipping, tripping and stumbling without falling, initial encounter; X50.1XXA Overexertion from prolonged static or awkward postures, initial encounter; Y93.89 Activity, other specified; Y92.63 Factory as the place of occurrence of the external cause; Y99.0 Civilian activity done for income or pay; Z88.2 Allergy status to sulfonamides; F17.210 Nicotine dependence, cigarettes, uncomplicated
CPT/HCPCS: 29881; J0131; J0171; J0690; J1100; J1885; J2003; J2405; J2704; J2795; J3010

== ENCOUNTER → 2024-06-11 06:00 | Outpatient (BNV) | payer OTHER, SELFPAY | PROVIDERS: PCP Internal Medicine; Visit Provider Orthopaedic Surgery | DX: S83.232A Complex tear of medial meniscus, current injury, left knee, initial encounter (principal) | CPT/HCPCS: 29881 ==

== ENCOUNTER 2024-06-17 11:18 | Outpatient (AMB) | payer OTHER, SELFPAY ==
--- NOTE | 2024-06-17 11:35 | A.OFFVIS_ITS ---
Intake Visit Reasons: PO-Lt Knee 06/11 NE Intake Note: Cheo is a 54 year old male who presents today with his and nurse case reviewer for a post op appointment s/p left knee 06/11/24 NE. Patient reports he is doing well, having some mild pain. Allergies Sulfa (Sulfonamide Antibiotics) [SULFA (SULFONAMIDE ANTIBIOTICS)] Allergy (Intermediate, Verified 05/23/24 10:29) HIVES HPI HPI PO-Lt Knee 06/11 NE: Details: 54-year-old male who presents in the office today 6 days status post left knee arthroscopy for partial medial meniscectomy and chondroplasty of left knee which was performed on 06/11/[address] Green. While in the office today, the patient reports he continues to have mild pain; however, overall he is doing well. He is using one crutch to assist with the ambulation. [facility] Medical History Nicotine dependence, cigarettes, uncomplicated Obesity (BMI 30-39.9) Irritable bowel syndrome (IBS) Constipation Chronic right-sided headache Overweight (BMI 25.0-29.9) Depression GERD (gastroesophageal reflux disease) Pure hypercholesterolemia Surgical History Hx of colonoscopy (~08/26/18) Family History Father Medical history unknown Mother Medical history unknown Paternal Grandfather Cancer Social History Housing: House Alcohol intake: current Alcohol intake frequency: does not drink Alcohol type: beer Patient Tobacco Use Status: Current everyday Tobacco user Tobacco use type: Cigarette Cigarettes Per Day: 10 e-Cigarette/Vaping Use: Never Used Second Hand Smoke Exposure: Yes service: No Current occupational status: employed Current occupational exposures/hazards: No Cognitive needs: No Hearing needs: No Vision needs: No Review of Systems Const All systems reviewed & are unremarkable except as noted in HPI and below Physical Exam Const General: cooperative, healthy appearing and no acute distress Resp Effort & Inspection: normal respiratory effort and able to speak in complete sentences Cardio Rate: regular rate Peripheral pulses: Peripheral pulses 2+ throughout GI Palpation (GI): Soft to palpation Skin Lesions: no lesions Rashes: no rashes Extrem Other: Left Knee: Incision sites are clean, dry, and intact. No surrounding erythema or drainage. No signs of infection. NVI. Assessment & Plan Assessment & Plan (1) Tear of medial meniscus of left knee: Code(s): S83.242A - Other tear of medial meniscus, current injury, left knee, initial encounter Category: Medical (2) Osteoarthritis: Code(s): M19.90 - Unspecified osteoarthritis, unspecified site Category: Medical Plan Mr. Cantrell is a 54-year-old male who presents in the office today 6 days status post left knee arthroscopy for partial medial meniscectomy and chondroplasty of left knee which was performed on 06/11/[address] Green. While in the office today, the patient reports he continues to have mild pain; however, overall he is doing well. He is using one crutch to assist with the ambulation. The patient was referred to physical therapy to work on range of motion and gait training. He was recommended to take Tylenol or ibuprofen PRN for pain. He was provided with a work note stating he will remain out of work until his next follow up. Follow-up will be in 4 weeks, or sooner if needed. Orders: Orders PT Evaluation and Treatment Today S83.242A - Other tear of medial meniscus, current injury, left knee, initial encounter Patient Instructions: Scribed by [facility] medical and lab director, for Rhonda Farfan PA-C on 06/17/24 at 11:48 am EST. Coding Level of Care Code Global (99297) Diagnoses Tear of medial meniscus of left knee S83.242A Osteoarthritis M19.90
== END 2024-06-17 11:49 | disposition home or self-care (01) ==
PROVIDERS: PCP Internal Medicine; Visit Provider Physician Assistant
DX: S83.242A Other tear of medial meniscus, current injury, left knee, initial encounter (principal); M19.90 Unspecified osteoarthritis, unspecified site
CPT/HCPCS: 99024

== ENCOUNTER → 2024-06-17 11:18 | Outpatient (BNVA) | payer OTHER, SELFPAY | PROVIDERS: PCP Internal Medicine; Visit Provider Physician Assistant | DX: S83.242D Other tear of medial meniscus, current injury, left knee, subsequent encounter (principal); M19.90 Unspecified osteoarthritis, unspecified site | CPT/HCPCS: 99212 ==

== ENCOUNTER 2024-07-04 12:17 | Outpatient (AMB) | payer OTHER, SELFPAY ==
--- NOTE | 2024-07-04 12:37 | A.OFFPC_ITS ---
Vital Signs 07/04/24 12:40 Height 6 ft 1 in Weight 231 lb 4 oz BMI 30.5 BP 130/90 H Blood Pressure Location Lt brachial Position Sitting Pulse 70 Pulse Source Pulse Oximeter Pulse Oximetry (%) 97 Oxygen Delivery Method Room Air Intake Visit Reasons: 4 Month F/U Intake Note: Patient is here to follow up on OA, IFG, IBS, Hypercholesterolemia. 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 Supervisor Newspaper Deliveries: Not Required per policy Accompanied by: Self / Same As Patient Allergies Sulfa (Sulfonamide Antibiotics) [SULFA (SULFONAMIDE ANTIBIOTICS)] Allergy (Intermediate, Verified 07/04/24 12:57) HIVES Medication List - Last Reconciled 07/04/24 by Neto Ahmadi MD bupropion HCl XL 150 mg PO QAM cetirizine 10 mg PO DAILY gabapentin 300 mg PO BID hydrocodone-acetaminophen 5-325 mg 1 tab PO Q8H PRN 7 days hydroxyzine HCl 100 mg PO BID PRN linaclotide (Linzess) 145 mcg PO DAILY mirtazapine 30 mg PO BEDTIME 90 days montelukast 10 mg PO QPM oxcarbazepine 750 mg PO BID pantoprazole 40 mg PO DAILY propranolol 20 mg PO BID propranolol 40 mg PO BID simvastatin 20 mg PO QPM Tobacco use date assessed: 07/04/24 Dental Screening Dental Screen Date: 11/01/23 HPI 4 Month F/U HPI Details Patient comes in today for his follow up visit States that he feels okay He still has occasional headaches but these are mostly well-controlled; he denies any dizziness Denies any chest pains, no SOB No nausea/vomiting, no abdominal pain No change in bowel habits noted He was not able to get his follow up labs done prior to his appointment today - states that he will try to get them done in a few days He would also like to get his flu shot today [facility] Medical History (Updated 07/06/24 @ 07:21 by Neto Ahmadi MD) Smoker Smoker Nicotine dependence, cigarettes, uncomplicated Obesity (BMI 30-39.9) Irritable bowel syndrome (IBS) Constipation Chronic right-sided headache Overweight (BMI 25.0-29.9) Depression GERD (gastroesophageal reflux disease) Pure hypercholesterolemia Surgical History History of left knee surgery Hx of colonoscopy (~08/26/18) Family History Father Medical history unknown Mother Medical history unknown Paternal Grandfather Cancer Social History Housing: House Alcohol intake: current Alcohol intake frequency: does not drink Alcohol type: beer Patient Tobacco Use Status: Current everyday Tobacco user Tobacco use type: Cigarette Cigarette Packs Per Day: 0.5 Cigarettes Per Day: 10 e-Cigarette/Vaping Use: Never Used Second Hand Smoke Exposure: Yes service: No Current occupational status: employed Current occupational exposures/hazards: No Cognitive needs: No Hearing needs: No Vision needs: No Questionnaire Thrive Questionnaire Date Thrive assessed: 11/01/23 AUDIT C Alcohol Use Questionnaire (AUDIT-C) 2. How many drinks containing alcohol do you have on a typical day when you are drinking?: 7 to 9 3. How often do you have six or more drinks on one occasion?: Monthly Total Score: 5 SANTI-7 AMB Questionnaire SANTI-7 Date SANTI - 7 assessed: 03/05/24 Source: Developed by Drs. Bereket Tillman, Marie Fatima, Madi Loaiza and colleagues, with an educational odell from [employer]. Review of Systems Const Denies chills, Denies fatigue, Denies fever(s) and Reports headache(s) (on and off, right-sided ) ENT Denies dysphagia, Denies dizziness, Denies otalgia, Reports headache(s) (on and off, right-sided ), Denies neck pain, Denies odynophagia and Denies sore throat Card Denies chest pain, Denies irregular heart rhythm, Denies palpitations and Denies dyspnea Resp Denies chest congestion, Denies cough and Denies dyspnea GI Denies abdominal pain, Reports constipation (on and off), Denies dysphagia, Denies diarrhea, Denies nausea, Denies odynophagia and Denies vomiting Denies difficulty urinating, Denies dysuria, Denies nocturia and Denies urinary frequency Musc Denies back pain, Denies arthralgias and Denies neck pain Skin/Breast Denies rash Neuro Denies dizziness, Reports headache(s) (on and off, right-sided ) and Denies paresthesias Psych Reports depression (is on Rx) Endo Denies fatigue and Denies palpitations Physical exam (Primary Care) Vital Signs: Last Vital Signs Pulse 70 07/04/24 12:40 BP 130/90 H 07/04/24 12:40 Pulse Ox 97 07/04/24 12:40 Oxygen Delivery Method Room Air 07/04/24 12:40 BMI result Body Mass Index 30.5 Tobacco/Smoking Status: Tobacco use Status Tobacco use date assessed 07/04/24 07/04/24 12:45 Patient Tobacco Use Status Current everyday Tobacco 07/04/24 12:45 Tobacco use type Cigarette 07/04/24 12:45 e-Cigarette/Vaping Use Never Used 07/04/24 12:45 Thrive Assessment: Date of Thrive Assessment Date Thrive assessed 11/01/23 07/04/24 12:45 Const General: no acute distress and alert HENMT Ears: TM's normal bilaterally and EAC's normal Throat: Yes posterior oropharynx normal and Yes tonsils normal (no TP congestion) Neck Neck: Yes no lymphadenopathy and Yes supple Thyroid: Thyroid normal Resp Auscultation: clear to auscultation bilaterally, no rales and no wheezes Cardio Rate: regular rate Rhythm: regular rhythm Heart sounds: no murmurs GI Palpation (GI): Soft to palpation and nontender Auscultation: normal bowel sounds General: Yes no CVA tenderness Back/Spine/Pelvis Back: no CVA tenderness Thoracic/Lumbar Spine: thoracic and lumbar spine normal to inspection Skin Rashes: no rashes Extrem General: Yes no clubbing, cyanosis or edema Office Procedures Flu Questionnaire Does the patient have a severe egg allergy?: No Does the patient have severe life threatening allergies?: No Does the patient have a fever or illness today?: No Has the patient ever had Guillain-Crucible Syndrome?: No Has the patient ever had any past reaction to a flu shot?: No Immunizations Fluarix Triv [id number] (PF) 45 mcg (15 mcg x 3)/0.5 mL IM syringe Performing Provider: Neto Ahmadi MD Performing [facility] Administered by: Noemy Campa RN on 07/04/24 12:52 Dose Route Admin Location Dispensed Lot Number Expiration Date [facility] Research Assistant Member 0.5 mL IM Left Deltoid 0.5 mL [id number] 03/09/25 [id number] [employer]ra VIS Given Date VIS Provided VIS Publication Date 07/04/24 Single Vaccine 21 Eligibility Eligibility Date Funding Source Not [facility] Eligible 07/04/24 Private Coding Level of Care Code Est Pt Level 4 (03895) Diagnoses Chronic right-sided headache R51.9; G89.29 Pure hypercholesterolemia E78.00 Irritable bowel syndrome with constipation K58.1 Irritable bowel syndrome type: with constipation Gastroesophageal reflux disease, unspecified whether esophagitis present K21.9 Esophagitis presence: esophagitis presence not specified Impaired fasting glucose R73.01 Episode of recurrent major depressive disorder, unspecified depression episode severity F33.9 Depression Type: major depressive disorder Major depression recurrence: recurrent Active/Remission status: currently active Major depression episode severity: unspecified Smoker F17.200 Overweight (BMI 25.0-29.9) E66.3 Assessment & Plan Assessment & Plan (1) Chronic right-sided headache: Comment: right-sided trigeminal neuralgia Code(s): R51.9 - Headache, unspecified; G89.29 - Other chronic pain Category: Medical Plan: His headaches are primarily due to right-sided trigeminal neuralgia States that his headaches have been well-controlled on his current Rx Continue Oxcarbazepine 750 mg BID (was switched over from Carbamazepine by neurology) and Gabapentin 300 mg BID Follow-up with [facility] Neurology as scheduled (2) Pure hypercholesterolemia: Code(s): E78.00 - Pure hypercholesterolemia, unspecified Category: Medical Plan: He was not able to get his follow-up labs done prior to his appointment today - states that he will try to get them done as soon as possible in the next few days Reinforced low cholesterol diet Continue Simvastatin 20 mg QD Will recheck his labs and fasting lipids again in 4 months for follow-up (3) Irritable bowel syndrome (IBS): Code(s): K58.9 - Irritable bowel syndrome, unspecified Category: Medical Qualifiers: Irritable bowel syndrome type: with constipation Qualified Code(s): K58.1 - Irritable bowel syndrome with constipation Plan: Reinforced increased oral fluids and dietary fiber Continue Senna 8.6 mg 1 to 2 tablets Q HS PRN He was previously on Linzess 145 mcg QD PRN but he stopped taking it as he has to stay home all day due to loose stool / frequent bowel movements for the whole day whenever he takes the Rx; got very constipation when he quit taking Linzess Follow up with [facility] G[facility]ology as scheduled (4) GERD (gastroesophageal reflux disease): Code(s): K21.9 - Gastro-esophageal reflux disease without esophagitis Category: Medical Qualifiers: Esophagitis presence: esophagitis presence not specified Qualified Code(s): K21.9 - Gastro-esophageal reflux disease without esophagitis Plan: Dietary restrictions reinforced Continue Omeprazole 20 mg QD Follow up with GI as scheduled (5) Impaired fasting glucose: Code(s): R73.01 - Impaired fasting glucose Category: Medical Plan: His FBS was elevated at 117 mg/dl on his previous labs but his in-office HgbA1c today was normal at 5.3%; HgbA1c was also at 5.3% when checked last year Reinforced low calorie diet/exercise as tolerated (6) Depression: Code(s): F32.9 - Major depressive disorder, single episode, unspecified Category: Medical Qualifiers: Depression Type: major depressive disorder Major depression recurrence: recurrent Active/Remission status: currently active Major depression episode severity: unspecified Qualified Code(s): F33.9 - Major depressive disorder, recurrent, unspecified Plan: Continue Bupropion 150 mg Q AM and Mirtazapine 30 mg Q HS as well as Hydroxyzine 25 to 50 mg BID PRN Follow up with psychiatry as scheduled States that working and staying busy help him cope better with his mood disorder (7) Smoker: Code(s): F17.200 - Nicotine dependence, unspecified, uncomplicated Category: Social Hx Plan: Patient is counseled again on smoking cessation (8) Overweight (BMI 25.0-29.9): Code(s): E66.3 - Overweight Category: Medical Plan: Reinforced diet/exercise as tolerated/lose weight Plan As requested, flu vaccine given to patient today Follow up in 4 months Orders: Orders Influenza [id number] Immunization 07/04/24 Z23 - Encounter for immunization Comprehensive [place]. Panel Fast 4 Months E78.00 - Pure hypercholesterolemia, unspecified Lipid Panel 4 Months E78.00 - Pure hypercholesterolemia, unspecified Hemoglobin A1c 4 Months E11.9 - Type 2 diabetes mellitus without complications UA CC w/rflx Micro + Cult 4 Months R30.0 - Dysuria Vitamin D 25-OH Total 4 Months E55.9 - Vitamin D deficiency, unspecified Complete Blood Count Auto Diff 4 Months D64.9 - Anemia, unspecified
[2024-07-04 12:40] VITALS: BP 130/90; PULSE 70; O2SAT 97; BMI 30.5
== END 2024-07-04 13:08 | disposition home or self-care (01) ==
PROVIDERS: PCP Internal Medicine; Visit Provider Internal Medicine
DX: Z23 Encounter for immunization (principal)

== ENCOUNTER → 2024-07-04 12:17 | Outpatient (BNVA) | payer OTHER, SELFPAY | PROVIDERS: PCP Internal Medicine; Visit Provider Internal Medicine | DX: R51.9 Headache, unspecified (principal); G89.29 Other chronic pain; E78.00 Pure hypercholesterolemia, unspecified; Z23 Encounter for immunization; K58.1 Irritable bowel syndrome with constipation; K21.9 Gastro-esophageal reflux disease without esophagitis; R73.01 Impaired fasting glucose; F33.9 Major depressive disorder, recurrent, unspecified; E66.3 Overweight; Z68.30 Body mass index [BMI] 30.0-30.9, adult; F17.210 Nicotine dependence, cigarettes, uncomplicated; Z79.899 Other long term (current) drug therapy | CPT/HCPCS: 90471; 90656 ==

== ENCOUNTER 2024-07-15 13:03 | Outpatient (AMB) | payer OTHER, SELFPAY ==
--- NOTE | 2024-07-15 13:10 | MHC.OFFVIS ---
Intake Visit Reasons: PO - Lt Knee 06/11/24 NE Intake Note: Cheo is a 54 year old male who presents today for a post op appointment s/p Lt Knee 06/11/24 NE. He is still having pain and he is unable to bear weight on his right side. Allergies Sulfa (Sulfonamide Antibiotics) [SULFA (SULFONAMIDE ANTIBIOTICS)] Allergy (Intermediate, Verified 07/15/24 13:24) HIVES HPI HPI PO - Lt Knee 06/11/24 NE: Details: 54-year-old male who presents in the office today 5 weeks status post left knee arthroscopy for partial medial meniscectomy and chondroplasty of left knee which was performed on 06/11/[address] Green. I last saw the patient in the office on 06/17/24 when she was referred to physical therapy to work on ROM and gait training. He was recommended to take OTC Tylenol or ibuprofen PRN for pain. He was advised to remain out of work until follow up. While in the office today, the patient reports he continues to have pain in the left knee. He is unable to bear weight on his left side. [facility] Medical History (Updated 07/16/24 @ 10:03 by Lizz Clayton PA-C) Smoker Smoker Nicotine dependence, cigarettes, uncomplicated Obesity (BMI 30-39.9) Irritable bowel syndrome (IBS) Constipation Chronic right-sided headache Overweight (BMI 25.0-29.9) Depression GERD (gastroesophageal reflux disease) Pure hypercholesterolemia Surgical History History of left knee surgery Hx of colonoscopy (~08/26/18) Family History Father Medical history unknown Mother Medical history unknown Paternal Grandfather Cancer Social History Housing: House Alcohol intake: current Alcohol intake frequency: does not drink Alcohol type: beer Patient Tobacco Use Status: Current everyday Tobacco user Tobacco use type: Cigarette Cigarette Packs Per Day: 0.5 Cigarettes Per Day: 10 e-Cigarette/Vaping Use: Never Used Second Hand Smoke Exposure: Yes service: No Current occupational status: employed Current occupational exposures/hazards: No Cognitive needs: No Hearing needs: No Vision needs: No Review of Systems Const All systems reviewed & are unremarkable except as noted in HPI and below Physical Exam Const General: cooperative, healthy appearing and no acute distress Resp Effort & Inspection: normal respiratory effort and able to speak in complete sentences Cardio Rate: regular rate Peripheral pulses: Peripheral pulses 2+ throughout GI Palpation (GI): Soft to palpation Skin Lesions: no lesions Rashes: no rashes Extrem Other: Left knee: Incision sites are clean, dry and intact. Incision site is completely healed with no signs of infection. ROM from 0-110 degrees. Assessment & Plan Assessment & Plan (1) Tear of medial meniscus of left knee: Code(s): S83.242A - Other tear of medial meniscus, current injury, left knee, initial encounter Category: Medical (2) Osteoarthritis: Code(s): M19.90 - Unspecified osteoarthritis, unspecified site Category: Medical Plan Mr. Cantrell is a 54-year-old male who presents in the office today 5 weeks status post left knee arthroscopy for partial medial meniscectomy and chondroplasty of left knee which was performed on 06/11/[address] Green. I last saw the patient in the office on 06/17/24 when she was referred to physical therapy to work on ROM and gait training. He was recommended to take OTC Tylenol or ibuprofen PRN for pain. He was advised to remain out of work until follow up. While in the office today, the patient reports he continues to have pain in the left knee. He is unable to bear weight on his left side. He will continue to attend physical therapy. He has been weaned down to one crutch. He will remain out of work until follow up with the goal of returning him back to work at that time. Follow-up will be in 4 weeks, or sooner if needed. Patient Instructions: Scribed by Ramonita Clifford medical oncologist, for Rhonda Farfan PA-C on 07/15/24 at 1:27 pm EST. Coding Level of Care Code Global (89962) Diagnoses Tear of medial meniscus of left knee S83.242A Osteoarthritis M19.90
== END 2024-07-15 13:24 | disposition home or self-care (01) ==
LOC: HO.HOS 13:04
PROVIDERS: PCP Internal Medicine; Visit Provider Physician Assistant
DX: S83.242A Other tear of medial meniscus, current injury, left knee, initial encounter (principal); M19.90 Unspecified osteoarthritis, unspecified site
CPT/HCPCS: 99024

== ENCOUNTER → 2024-07-15 13:03 | Outpatient (BNVA) | payer OTHER, SELFPAY | PROVIDERS: PCP Internal Medicine; Visit Provider Physician Assistant | DX: S83.242D Other tear of medial meniscus, current injury, left knee, subsequent encounter (principal); M19.90 Unspecified osteoarthritis, unspecified site | CPT/HCPCS: 99212 ==

== ENCOUNTER 2024-07-16 09:41 | Outpatient (AMB) | payer OTHER, SELFPAY ==
[2024-07-16 09:52] VITALS: BP 156/112; PULSE 72; O2SAT 98; BMI 30.8
--- NOTE | 2024-07-16 09:52 | AM.OFFWIN_ITS ---
Intake Vital Signs 07/16/24 09:52 Height 6 ft 1 in Weight 233 lb 4 oz BMI 30.8 BP 156/112 H Blood Pressure Location Lt brachial Position Sitting Pulse 72 Pulse Source Pulse Oximeter Pulse Oximetry (%) 98 Oxygen Delivery Method Room Air Intake Visit Reasons: EP- LT rash inner thigh Patient Tobacco Use Status: Current everyday Tobacco user Allergies Sulfa (Sulfonamide Antibiotics) [SULFA (SULFONAMIDE ANTIBIOTICS)] Allergy (Intermediate, Verified 07/15/24 13:24) HIVES Do you need a note to return to daycare/school/sports/work: No HPI HPI Comments History of Present Illness Details Patient is a 54-year-old male complaining of a cyst that is draining in his left inguinal area for the last 2 weeks. He tells me it is very painful with the pain has improved since it has been draining. However he tells me they are still a big lump over the skin and it seems to have stopped draining. He tells me when it was draining it was yellow fluid. He thinks it is an ingrown hair [facility] Medical History (Updated 07/16/24 @ 10:03 by Lizz Clayton PA-C) Smoker Smoker Nicotine dependence, cigarettes, uncomplicated Obesity (BMI 30-39.9) Irritable bowel syndrome (IBS) Constipation Chronic right-sided headache Overweight (BMI 25.0-29.9) Depression GERD (gastroesophageal reflux disease) Pure hypercholesterolemia Surgical History History of left knee surgery Hx of colonoscopy (~08/26/18) Family History Father Medical history unknown Mother Medical history unknown Paternal Grandfather Cancer Social History Housing: House Alcohol intake: current Alcohol intake frequency: does not drink Alcohol type: beer Patient Tobacco Use Status: Current everyday Tobacco user Tobacco use type: Cigarette Cigarette Packs Per Day: 0.5 Cigarettes Per Day: 10 e-Cigarette/Vaping Use: Never Used Second Hand Smoke Exposure: Yes service: No Current occupational status: employed Current occupational exposures/hazards: No Cognitive needs: No Hearing needs: No Vision needs: No Review of Systems Const All systems reviewed & are unremarkable except as noted in HPI and below Physical Exam Vital Signs: Last Vital Signs Pulse 72 07/16/24 09:52 BP 156/112 H 07/16/24 09:52 Pulse Ox 98 07/16/24 09:52 Oxygen Delivery Method Room Air 07/16/24 09:52 BMI result Body Mass Index 30.8 Const General: cooperative, healthy appearing, comfortable, no acute distress and well developed Orientation/consciousness: patient oriented x3 Limitations: no limitations HEENT Head: Yes normal to inspection Eyes General: appearance normal, both eyes and all related structures Neck Neck: Yes normal visual inspection and Yes full ROM Resp Effort & Inspection: normal respiratory effort and able to speak in complete sentences Skin Other: 0.75cm area of induration and erythema in left inguinal area, unable to express fluid, not fluctuant, no ecchymosis, no lacerations or abrasions noted Neuro General: patient oriented x3 Extrem General: Yes normal to inspection Assessment & Plan Assessment & Plan (1) Abscess of groin, left: Code(s): L02.214 - Cutaneous abscess of groin Plan: Abscess is not fluctuant, looks like it is already drained and what is left is just an indurated area which we will treat with antibiotics, likely an ingrown hair. Plan See above Medications: New doxycycline hyclate 100 mg PO BID 10 tabs 0RF Coding Level of Care Code Est Pt Level 3 (14901) Diagnoses Abscess of groin, left L02.214
== END 2024-07-16 10:07 | disposition home or self-care (01) ==
PROVIDERS: PCP Internal Medicine; Visit Provider Physician Assistant
DX: L02.214 Cutaneous abscess of groin (principal)

== ENCOUNTER → 2024-07-16 09:41 | Outpatient (BNVA) | payer OTHER, SELFPAY | PROVIDERS: PCP Internal Medicine; Visit Provider Physician Assistant ==

== ENCOUNTER 2024-08-11 12:00 | Outpatient (RCR) | payer OTHER, SELFPAY ==
--- NOTE | 2024-07-01 12:42 | MHC.PT.EP ---
[facility] [place] Office [place] Office [place] Office [address] Analilia Bruner [address] [phone] F: [phone] F: [phone] F: [phone] F: [phone] Physical Therapy Plan of Care Date of Evaluation: 07/01/24 Date of Surgery: 06/11/24 Diagnosis: other tear medial meniscus Assessment: 54 y/o male referred to PT s/p L medial menisectomy and chrondroplasty on 06/11/24. Initial injury occurred at work when he tripped and twisted L LE resulting in L ankle sprain and meniscus tear on 01/13/24. He is currently OOW d/t injury. Reports currently pain and difficulty with walking, stairs, work duties, sleeping, squatting, and bending. Examination shows decreased L knee ROM, decreased L knee/ hip strength, pain, lateral patellar tracking, and impaired gait pattern. Recommend PT 2x/week for 5 weeks to address impairments, implement HEP, and optimize functional mobility. 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 Manual therapy to restore motion and function. Therapeutic exercise to improve strength and flexibility. Neuromuscular re-education for posture and balance. Therapeutic activities to return to functional activities of daily living. Electronically signed by: Shannan Tomlinson PT Please sign and return to therapist. Thank you for your referral.
--- NOTE | 2024-07-30 11:50 | MHC.PT.EP ---
[facility] [place] Office [place] Office [place] Office [address] [phone] F: [phone] F: [phone] F: [phone] F: [phone] Physical Therapy Plan of Care Date of Evaluation: 07/01/24 Date of Surgery: 06/11/24 Diagnosis: other tear medial meniscus Assessment: 54 y/o male referred to PT s/p L medial menisectomy and chrondroplasty on 06/11/24. Initial injury occurred at work when he tripped and twisted L LE resulting in L ankle sprain and meniscus tear on 01/13/24. He is currently OOW d/t injury. Reports currently pain and difficulty with walking, stairs, work duties, sleeping, squatting, and bending. Examination shows decreased L knee ROM, decreased L knee/ hip strength, pain, lateral patellar tracking, and impaired gait pattern. Recommend PT 2x/week for 5 weeks to address impairments, implement HEP, and optimize functional mobility. Frequency and Duration: The patient will be seen 2x/week for 5 weeks Short Term Goals: STG's Met Snf Goals: 5 weeks I with HEP and self management of sx Pt will demonstrate L knee ROM 0-120 to facilitate ambulation and stairs Pt will be able to demonstrate proper lifting mechanics with squat and pain < 3/10 Pt will be able to ascend/ descend stairs with step through pattern and pain < 3/10 Treatment Plan: Modalities to reduce pain, spasms and effusion. Manual therapy to restore motion and function. Therapeutic exercise to improve strength and flexibility. Neuromuscular re-education for posture and balance. Therapeutic activities to return to functional activities of daily living. Electronically signed by: Shannan Tomlinson PT Please sign and return to therapist. Thank you for your referral.
--- NOTE | 2024-09-16 15:08 | MHC.PT.DC ---
[facility] [place] Office [place] Office [place] Office [address] Analilia Burner [address] [phone] F: [phone] F: [phone] F: [phone] F: [phone] Physical Therapy Discharge Report Diagnosis: other tear medial meniscus Date of Surgery: 06/11/24 Date of Evaluation: 07/01/24 Date of Discharge: 09/16/24 Treatments to Date: 10 Cancellations to Date: 0 No Shows to Date: 0 Discharge Status: Improved Function Independent with HEP Discharge Summary: Overall his knee ROM has improved as has his strength although still not full strength. He still reports increased pain and difficulty with prolonged standing, walking, driving and lifting and he has not RTW. He does reports continued L ankle limitations from injury and it was recommended that he f/u with MD regarding his concerns with ankle, however no noted instability with gait seen. It was recommended to also continue with PT for an additional 6 visits, however he only scheduled 2 additional visits. At this time will d/c chart as it has been greater than 30 days since last visit. Electronically signed by: Shannan Tomlinson PT Please sign and return to therapist. Thank you for your referral.
== END 2024-09-16 15:08 | disposition home or self-care (01) ==
LOC: HO.PT 12:00
PROVIDERS: PCP Internal Medicine; Visit Provider Physician Assistant
DX: S83.242D Other tear of medial meniscus, current injury, left knee, subsequent encounter (principal)
CPT/HCPCS: 97110; 97140; 97161; 97530

== ENCOUNTER 2024-08-14 10:52 | Outpatient (AMB) | payer OTHER, SELFPAY ==
--- NOTE | 2024-08-14 10:52 | A.OFFVIS_ITS ---
Vital Signs 08/14/24 11:01 Height 6 ft 1 in Weight 233 lb BMI 30.7 Intake Visit Reasons: PO - Lt Knee 06/11/24 NE Intake Note: Cheo is a 54 year old male who presents today for a post op appointment s/p Lt Knee 06/11/24 NE. He states that he is having continuos pain in his knee and in his ankle. Patient has noticed swelling in his ankle and knee after PT and hi s is having pain on the lateral aspect of the ankle. He mentions that his pain is through out the whole knee. Patient is unable to walk or stand for no more than 2 - 3 hrs. Refractory Technician Required: Yes Refractory Technician Services: Refractory Technician Present (Saira ([id number])) Allergies Sulfa (Sulfonamide Antibiotics) [SULFA (SULFONAMIDE ANTIBIOTICS)] Allergy (Intermediate, Verified 08/14/24 11:00) HIVES HPI HPI PO - Lt Knee 06/11/24 NE: Details: 54-year-old male, who presents in the office today for a 2 months follow-up of left knee arthroscopy, which was performed on 06/11/[address] Green. I last saw the patient in the office on 07/15/24 for continued left knee pain. He was recommended to continue attending physical therapy sessions. He was down to one crutches on that visit. He was provided a work note stating to remain out of work until follow-up. While in the office today, the patient reports persistent pain in his left knee and in his left ankle. He mentions he has noticed edema in his left ankle and knee after attending physical therapy. He specifies that he is experiencing pain in his whole left knee and on the lateral aspect of the left ankle. He is unable to ambulate or stand for no more than 2-3 hours. [facility] Medical History (Updated 07/16/24 @ 10:03 by Lizz Calyton PA-C) Smoker Smoker Nicotine dependence, cigarettes, uncomplicated Obesity (BMI 30-39.9) Irritable bowel syndrome (IBS) Constipation Chronic right-sided headache Overweight (BMI 25.0-29.9) Depression GERD (gastroesophageal reflux disease) Pure hypercholesterolemia Surgical History History of left knee surgery Hx of colonoscopy (~08/26/18) Family History Father Medical history unknown Mother Medical history unknown Paternal Grandfather Cancer Social History Housing: House Alcohol intake: current Alcohol intake frequency: does not drink Alcohol type: beer Patient Tobacco Use Status: Current everyday Tobacco user Tobacco use type: Cigarette Cigarette Packs Per Day: 0.5 Cigarettes Per Day: 10 e-Cigarette/Vaping Use: Never Used Second Hand Smoke Exposure: Yes service: No Current occupational status: employed Current occupational exposures/hazards: No Cognitive needs: No Hearing needs: No Vision needs: No Review of Systems Const All systems reviewed & are unremarkable except as noted in HPI and below Physical Exam Vital Signs: BMI result Body Mass Index 30.7 Const General: cooperative, healthy appearing and no acute distress Resp Effort & Inspection: normal respiratory effort and able to speak in complete sentences Cardio Rate: regular rate Peripheral pulses: Peripheral pulses 2+ throughout GI Palpation (GI): Soft to palpation Skin Lesions: no lesions Rashes: no rashes Extrem Other: Left knee: Incision sites are clean, dry, and intact. No surrounding erythema or drainage. No signs of infection. ROM is 0-110 degrees. Crepitus felt with ROM. NVI. Assessment & Plan Assessment & Plan (1) Tear of medial meniscus of left knee: Code(s): S83.242A - Other tear of medial meniscus, current injury, left knee, initial encounter Category: Medical (2) Osteoarthritis: Code(s): M19.90 - Unspecified osteoarthritis, unspecified site Category: Medical Plan Mr. Greco is a 54-year-old male, who presents in the office today for a 2 months follow-up of left knee arthroscopy, which was performed on 06/11/[address] Green. I last saw the patient in the office on 07/15/24 for continued left knee pain. He was recommended to continue attending physical therapy sessions. He was down to one crutches on that visit. He was provided a work note stating to remain out of work until follow-up. While in the office today, the patient reports persistent pain in his left knee and in his left ankle. He mentions he has noticed edema in his left ankle and knee after attending physical therapy. He specifies that he is experiencing pain in his whole left knee and on the lateral aspect of the left ankle. He is unable to ambulate or stand for no more than 2-3 hours. The patient can return to work and was advised to do sedentary work only. I would also recommend him to take frequent breaks to allow him to sit, stand and stretch as needed. He will continue attending physical therapy sessions. He was prescribed celecoxib 200 mg PO BID for 30 days. Follow-up will be in 4 weeks, or sooner if needed. Medications: New celecoxib (Celebrex) 200 mg PO BID 60 caps 0RF 30 days Patient Instructions: Scribed by Ramonita Clifford, medical concierge, for Rhonda Farfan PA-C on 08/14/24 at 12:12 am EST. Coding Level of Care Code Global (44291) Diagnoses Tear of medial meniscus of left knee S83.242A Osteoarthritis M19.90
[2024-08-14 11:01] VITALS: BMI 30.7
== END 2024-08-14 11:54 | disposition home or self-care (01) ==
PROVIDERS: PCP Internal Medicine; Visit Provider Physician Assistant
DX: S83.242A Other tear of medial meniscus, current injury, left knee, initial encounter (principal); M19.90 Unspecified osteoarthritis, unspecified site
CPT/HCPCS: 99024

== ENCOUNTER → 2024-08-14 10:52 | Outpatient (BNVA) | payer OTHER, SELFPAY | PROVIDERS: PCP Internal Medicine; Visit Provider Physician Assistant | DX: M25.562 Pain in left knee (principal); M25.572 Pain in left ankle and joints of left foot; M19.90 Unspecified osteoarthritis, unspecified site; S83.242D Other tear of medial meniscus, current injury, left knee, subsequent encounter; X58.XXXD Exposure to other specified factors, subsequent encounter; Z98.890 Other specified postprocedural states | CPT/HCPCS: 99212 ==

== ENCOUNTER 2024-09-05 09:37 | Outpatient (REF) | payer OTHER, SELFPAY ==
--- NOTE | ~2024-09-05 | XR_ITS ---
EXAMINATION: XR ANKLE LEFT CLINICAL INFORMATION: Pain in left ankle and joints of left foot M25.572. COMPARISON: XR Left ankle 02/19/2024 TECHNIQUE: AP, lateral, and mortise views of the left ankle. FINDINGS: No fracture. Alignment is anatomic. No erosions. Joint spaces are maintained. Soft tissues are normal. XR/XR ankle LT min 3V IMPRESSION: Normal left ankle. Electronically signed by: Jonelle Crespo MD 09/07/2024 12:08 PM SANDHYA ELLIS
== END 2024-09-05 09:38 | disposition home or self-care (01) ==
LOC: HO.HOSX 09:37
DX: M25.572 Pain in left ankle and joints of left foot (principal); S93.402A Sprain of unspecified ligament of left ankle, initial encounter
CPT/HCPCS: 73610; 99212

== ENCOUNTER 2024-09-05 11:19 | Outpatient (AMB) | payer OTHER, SELFPAY ==
[2024-09-05 11:43] VITALS: BMI 30.7
--- NOTE | 2024-09-05 11:43 | A.OFFVIS_ITS ---
Vital Signs 09/05/24 11:43 Height 6 ft 1 in Weight 233 lb BMI 30.7 Intake Visit Reasons: New Prob: Left ankle pain Intake Note: Cheo is a 54 year old male who presents today with his nurse family service caseworker Ynes, for his follow up W/C visit with complaints of left ankle pain s/p 01/13/24. 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 Last seen 05/05/24 where he was RX P.T. . Currently states he has completed P.T but continues to have pain with prolong walking, standing and walking up stairs. He has throbbing and pins and needles sensation. Prototype Machine Operator Required: Yes Prototype Machine Operator Services: Prototype Machine Operator Present (Jin [id number]) Prototype Machine Operator Name: Jin Accompanied by: nurse family service caseworker Allergies Sulfa (Sulfonamide Antibiotics) [SULFA (SULFONAMIDE ANTIBIOTICS)] Allergy (Intermediate, Verified 09/05/24 11:52) HIVES HPI HPI New Prob: Left ankle pain: Details: Patient is a 54-year-old male who presents for follow-up evaluation of left ankle pain, ongoing for approximately 6 months. The patient states that this pain is not present to palpation or while at rest, but states that he does have significant pain in his ankle on ambulation. No other acute complaints or concerns at this time [facility] Medical History (Updated 07/16/24 @ 10:03 by Lizz Clayton PA-C) Smoker Smoker Nicotine dependence, cigarettes, uncomplicated Obesity (BMI 30-39.9) Irritable bowel syndrome (IBS) Constipation Chronic right-sided headache Overweight (BMI 25.0-29.9) Depression GERD (gastroesophageal reflux disease) Pure hypercholesterolemia Surgical History History of left knee surgery Hx of colonoscopy (~08/26/18) Family History Father Medical history unknown Mother Medical history unknown Paternal Grandfather Cancer Social History (Updated 09/05/24 @ 11:53 by TEMO Fregoso) Housing: House Alcohol intake: current Alcohol intake frequency: does not drink Alcohol type: beer Patient Tobacco Use Status: Current everyday Tobacco user Tobacco use type: Cigarette Cigarette Packs Per Day: 0.5 Cigarettes Per Day: 10 e-Cigarette/Vaping Use: Never Used Second Hand Smoke Exposure: Yes service: No Current occupational status: employed 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/ Current occupational exposures/hazards: No Cognitive needs: No Hearing needs: No Vision needs: No Physical Exam Vital Signs: BMI result Body Mass Index 30.7 Extrem Other: Left ankle exam There is no edema noted about the lateral malleolus of the left ankle No erythema, ecchymosis noted No lacerations, abrasions, open areas No evidence of infection No tenderness to palpation of the left foot and ankle No other tenderness to palpation noted about the lateral malleolus, medial malleolus, ankle joint line, or proximal foot No significant ligamentous laxity with inversion on the left as compared to the right Patient is able to dorsiflex and plantar flex the left foot without difficulty Patient is able to flex and extend the digits of the left foot without difficulty Patient ambulates with slightly antalgic gait Distal sensation intact Capillary refill brisk Results Reviewed Results Reviewed: X-rays obtained in the office today and independently reviewed by me, Huy Casey PA-C, demonstrate no fracture or acute bony abnormality of the left ankle. Assessment & Plan Assessment & Plan (1) Left ankle sprain: Code(s): S93.402A - Sprain of unspecified ligament of left ankle, initial encounter Category: Medical Plan 1. Left ankle sprain Approximately 6 months ago At this time, patient was referred to physical therapy for range of motion, strengthening, and gait training of the left foot and ankle Patient is informed that due to the age of his injury, no bracing or boot is necessary Patient was advised he should wear good, stable footwear while at work Patient was also advised that he should also take time to sit while at work so his ankle stops bothering him Patient was amenable to this plan Patient will follow-up as needed with any acute concerns for his left ankle Should keep previously scheduled appointment for his left knee Orders: Orders XR ankle LT min 3V Today M25.572 - Pain in left ankle and joints of left foot PT Evaluation and Treatment Today S93.402A - Sprain of unspecified ligament of left ankle, initial encounter Coding Level of Care Code Est Pt Level 3 (76778) Diagnoses Left ankle sprain S93.402A
== END 2024-09-05 12:10 | disposition home or self-care (01) ==
PROVIDERS: PCP Internal Medicine
DX: S93.402A Sprain of unspecified ligament of left ankle, initial encounter (principal)
CPT/HCPCS: 99213

== ENCOUNTER 2024-09-16 12:51 | Outpatient (AMB) | payer OTHER, SELFPAY ==
--- NOTE | 2024-09-16 13:14 | A.OFFVIS_ITS ---
Intake Visit Reasons: OV - Lt Knee 06/11/24 NE Intake Note: Cheo is 54 year old male who presents today for a follow up of his Lt Knee 06/11/24 NE. Patient reports he is still having continuous pain in his left knee. He mentions when he took Celebrex it made his blood pressure high. Allergies Sulfa (Sulfonamide Antibiotics) [SULFA (SULFONAMIDE ANTIBIOTICS)] Allergy (Intermediate, Verified 09/05/24 11:52) HIVES celecoxib [From Celebrex] Adverse Reaction (Verified 09/16/24 13:20) High blood pressure HPI HPI OV - Lt Knee 06/11/24 NE: Details: Mr. Cantrell is a 54-year-old male who presents to the office today status post left knee arthroscopy with chondroplasty on 06/11/[address] Green. He presents to the office with his complex case manager and reports that he has not been back to work as of yet. He is ambulating with the use of a cane. He reports that this is due to ongoing pain. He reports that his pain is throughout the entirety of radiates down the anterior aspect of his leg. He also reports that his calf gets tight and swollen. [facility] Medical History (Updated 07/16/24 @ 10:03 by Lizz Clayton PA-C) Smoker Smoker Nicotine dependence, cigarettes, uncomplicated Obesity (BMI 30-39.9) Irritable bowel syndrome (IBS) Constipation Chronic right-sided headache Overweight (BMI 25.0-29.9) Depression GERD (gastroesophageal reflux disease) Pure hypercholesterolemia Surgical History History of left knee surgery Hx of colonoscopy (~08/26/18) Family History Father Medical history unknown Mother Medical history unknown Paternal Grandfather Cancer Social History Housing: House Alcohol intake: current Alcohol intake frequency: does not drink Alcohol type: beer Patient Tobacco Use Status: Current everyday Tobacco user Tobacco use type: Cigarette Cigarette Packs Per Day: 0.5 Cigarettes Per Day: 10 e-Cigarette/Vaping Use: Never Used Second Hand Smoke Exposure: Yes service: No Current occupational status: employed 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/ Current occupational exposures/hazards: No Cognitive needs: No Hearing needs: No Vision needs: No Review of Systems Const All systems reviewed & are unremarkable except as noted in HPI and below Physical Exam Const General: cooperative, healthy appearing and no acute distress Resp Effort & Inspection: normal respiratory effort and able to speak in complete sentences Cardio Rate: regular rate Peripheral pulses: Peripheral pulses 2+ throughout Skin Lesions: no lesions Rashes: no rashes Extrem Other: Left knee normal to inspection prior incision sites are well approximated and completely healed with no signs of infection. Range of motion is 0-110. No tenderness to medial or lateral joint lines. Calf is supple and nontender. NVI. Assessment & Plan Assessment & Plan (1) Tear of medial meniscus of left knee: Code(s): S83.242A - Other tear of medial meniscus, current injury, left knee, initial encounter Category: Medical (2) Osteoarthritis: Code(s): M19.90 - Unspecified osteoarthritis, unspecified site Category: Medical Plan Mr. Cantrell is a 54-year-old male who presents to the office today status post left knee arthroscopy with chondroplasty on 06/11/[address] Green. He presents to the office with his complex case manager and reports that he has not been back to work as of yet. He is ambulating with the use of a cane. He reports that this is due to ongoing pain. He reports that his pain is throughout the entirety of radiates down the anterior aspect of his leg. He also reports that his calf gets tight and swollen. I recommend that the patient attend a work hardening program for physical therapy. This showed mimic his job responsibilities and helped to prepare him to get back to work. The cane is not mechanically necessary but may be used for pain and instability. He should remain out of work until follow-up. The patient will follow up with Dr. Green 6 weeks after work hardening is complete. Follow up in 6 weeks, sooner if needed. Orders: Orders PT Evaluation and Treatment Today M19.90 - Unspecified osteoarthritis, unspecified site, S83.242A - Other tear of medial meniscus, current injury, left knee, initial encounter Coding Level of Care Code Est Pt Level 4 (83650) Diagnoses Tear of medial meniscus of left knee S83.242A Osteoarthritis M19.90
== END 2024-09-16 14:08 | disposition home or self-care (01) ==
PROVIDERS: PCP Internal Medicine; Visit Provider Physician Assistant
DX: S83.242A Other tear of medial meniscus, current injury, left knee, initial encounter (principal); M19.90 Unspecified osteoarthritis, unspecified site
CPT/HCPCS: 99214

== ENCOUNTER → 2024-09-16 12:51 | Outpatient (BNVA) | payer OTHER, SELFPAY | PROVIDERS: PCP Internal Medicine; Visit Provider Physician Assistant | DX: S83.242D Other tear of medial meniscus, current injury, left knee, subsequent encounter (principal); M19.90 Unspecified osteoarthritis, unspecified site | CPT/HCPCS: 99212 ==

== ENCOUNTER 2024-10-23 13:24 | Outpatient (AMB) | payer OTHER, SELFPAY ==
[2024-10-23 13:27] VITALS: BMI 30.7
--- NOTE | 2024-10-23 13:27 | MHC.OFFVIS ---
Vital Signs 10/23/24 13:27 Height 6 ft 1 in Weight 233 lb BMI 30.7 Intake Visit Reasons: OV -Lt Knee 06/11/24 NE Intake Note: Cheo is 54 year old male who presents today for a follow up of his Lt Knee 06/11/24 NE. Patient reports that he is not doing very well he has continues stiffness. He is unable to bend the knee all the way. He finished physical therapy. Currently he remains out of work. His job requires prolonged standing and walking with frequent lifting/moving of 9lbs & occasional lifting/moving 35lbs Allergies Sulfa (Sulfonamide Antibiotics) [SULFA (SULFONAMIDE ANTIBIOTICS)] Allergy (Intermediate, Verified 11/04/24 14:17) HIVES celecoxib [From Celebrex] Adverse Reaction (Verified 11/04/24 14:17) High blood pressure HPI HPI OV -Lt Knee 06/11/24 NE: Details: Cheo is 54 year old male who presents today for a follow up of his Lt Knee 06/11/24 NE. Patient reports that he is not doing very well he has continued stiffness. He is unable to bend the knee all the way. He finished physical therapy. Currently he remains out of work. His job requires prolonged standing and walking with frequent lifting/moving of 9lbs & occasional lifting/moving 35lbs. He describes difficutly the day following his work hardening sessions. He states he cannot work daily because of the pain. [facility] Medical History (Updated 11/09/24 @ 19:35 by Neto Ahmadi MD) Essential hypertension Smoker Smoker Nicotine dependence, cigarettes, uncomplicated Obesity (BMI 30-39.9) Irritable bowel syndrome (IBS) Constipation Chronic right-sided headache Overweight (BMI 25.0-29.9) Depression GERD (gastroesophageal reflux disease) Pure hypercholesterolemia Surgical History History of left knee surgery Hx of colonoscopy (~08/26/18) Family History Father Medical history unknown Mother Medical history unknown Paternal Grandfather Cancer Social History Housing: House Alcohol intake: current Alcohol intake frequency: does not drink Alcohol type: beer Patient Tobacco Use Status: Current everyday Tobacco user Tobacco use type: Cigarette Cigarette Packs Per Day: 0.5 Cigarettes Per Day: 10 e-Cigarette/Vaping Use: Never Used Second Hand Smoke Exposure: Yes service: No Current occupational status: employed 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 mild left knee effusion and ttp popliteal fossa. calf supple inc c/d/i Assessment & Plan Assessment & Plan (1) Tear of medial meniscus of left knee: Code(s): S83.242A - Other tear of medial meniscus, current injury, left knee, initial encounter Category: Medical Plan: Cheo is a worker's comp patient who underwent a left knee for MMT and intra operative finding demonstrated mild-moderate PF and medial compartment OA. He has continued soreness and pain. He seems to be improving with PT but states he has severe pain after doing PT and cannot return to work. He describes pain with sitting, extending leg and standing. I recommend gentle PT and will continue out of work until 11/24/24 at which time he will return to work without restriction. (2) Osteoarthritis: Code(s): M19.90 - Unspecified osteoarthritis, unspecified site Category: Medical Plan: Intra operative findings of OA. Arthroscopy appears to have irritated underlying OA. Coding Level of Care Code Est Pt Level 3 (08936) Diagnoses Tear of medial meniscus of left knee S83.242A Osteoarthritis M19.90
== END 2024-10-23 14:18 | disposition home or self-care (01) ==
PROVIDERS: PCP Internal Medicine; Visit Provider Orthopaedic Surgery
DX: S83.242A Other tear of medial meniscus, current injury, left knee, initial encounter (principal); M17.12 Unilateral primary osteoarthritis, left knee; Z04.2 Encounter for examination and observation following work accident
CPT/HCPCS: 99213

== ENCOUNTER → 2024-10-23 13:24 | Outpatient (BNVA) | payer OTHER, SELFPAY | PROVIDERS: PCP Internal Medicine; Visit Provider Orthopaedic Surgery | DX: M25.662 Stiffness of left knee, not elsewhere classified (principal); M19.90 Unspecified osteoarthritis, unspecified site; S83.242D Other tear of medial meniscus, current injury, left knee, subsequent encounter; X58.XXXD Exposure to other specified factors, subsequent encounter | CPT/HCPCS: 99212 ==

== ENCOUNTER 2024-10-29 06:15 | Outpatient (REF) | payer OTHER, SELFPAY ==
[2024-10-29 06:34] LABS: MANUAL DIFF FLAG NO
[2024-10-29 07:26] LABS: Estimated Average Glucose 114 mg/dL; Hemoglobin A1C 146.9401 umol/L; Hemoglobin A1c % 5.6 % (<6.0); Total Hemoglobin (HGBA1C) 3894.0191 umol/L
[2024-10-29 07:27] LABS: Basophils Percent Auto 0.4 % (0-2); Eosinophils Absolute Auto 0.2 X10*3/uL (0.0-0.4); Eosinophils Percent Auto 3.3 % (0-4); Hematocrit 43.4 % (42.0-52.0); Hemoglobin 15.2 g/dl (14.0-18.0); Imm Gran Abs Auto 0.02 X10*3/uL (0.00-0.03); Imm Gran Pct Auto 0.3 % (0.0-0.4); Lymphocytes Absolute Auto 1.9 X10*3/uL (1.2-4.9); Lymphocytes Percent Auto 27.1 % (20-40); Mean Corpuscular Volume 88.4 fL (80.0-98.0); Mean Platelet Volume 11.8 fL (9.4-12.4); Monocytes Absolute Auto 0.6 X10*3/uL (0.1-1.2); Monocytes Percent Auto 8.9 % (2-11); Neutrophils Absolute Auto 4.1 x10*3/uL (2.0-8.3); Platelet Count 179 X10*3/uL (160-400); Red Blood Count 4.91 X10*6/uL (4.60-5.80); Red Cell Distribution Width 12.4 % (11.0-16.0); White Blood Count 6.9 X10*3/uL (4.8-10.8)
[2024-10-29 07:41] LABS: Alanine Aminotransferase 17 U/L (0-40); Albumin Level 4.2 g/dL (3.5-5.0); Alkaline Phosphatase 78 U/L (39-117); Anion Gap 13 (12-20); Aspartate Amino Transferase 17 U/L (5-37); Bilirubin Total 0.3 mg/dL (0.0-1.0); Blood Urea Nitrogen 12 mg/dL (9-16); Calcium 9.2 mg/dL (8.4-10.2); Carbon Dioxide 26 mmol/L (22-29); Chloride 96 mmol/L (96-108); Cholesterol 146 mg/dL (<200); Estimated Glomerular Filt Rate > 60; Glucose Fasting 120 mg/dL (60-99); HDL Cholesterol 41 mg/dL (>40); LDL Cholesterol Calculated 85 mg/dL (<100); Potassium 4.5 mmol/L (3.3-5.1); Sodium 130 mmol/L (135-145); Total Protein 7.4 g/dL (6.5-8.0); Triglycerides 101 mg/dL (<150)
[2024-10-29 07:57] LABS: TSH reflex Free T4 1.24 uIU/mL (0.32-4.0)
[2024-10-29 08:12] LABS: Appearance Urine Clear; Color Urine Yellow; Glucose Urine UA Negative (Negative); Leukocyte Esterase Urine Negative (Negative); Nitrite Urine Negative (Negative); Specific Gravity - Urine >= 1.030 (1.005-1.025); Urine Blood Negative (Negative); Urine Ketones Negative (Negative); Urine Protein Trace mg/dL (Neg-Trace)
== END 2024-10-29 06:16 | disposition home or self-care (01) ==
LOC: HO.LAB 06:15
PROVIDERS: PCP Internal Medicine; Visit Provider Internal Medicine
DX: E11.9 Type 2 diabetes mellitus without complications (principal); E78.00 Pure hypercholesterolemia, unspecified; D64.9 Anemia, unspecified; R30.0 Dysuria; E55.9 Vitamin D deficiency, unspecified
CPT/HCPCS: 36415; 80053; 80061; 81003; 82306; 83036; 84443; 85025

== ENCOUNTER 2024-11-04 13:17 | Outpatient (REF) | payer OTHER, SELFPAY ==
--- NOTE | ~2024-11-04 | XR_ITS ---
CLINICAL HISTORY: M25.561 - Pain in right knee 4 view right knee Comparison: None Findings: Bones intact. No dislocations. There are small medial compartmental osteophytes. There is slight medial joint space compartmental narrowing. No soft tissue lesions minimal patellofemoral osteophytes. No joint effusion. No radiopaque foreign body. IMPRESSION: Osteoarthrosis most significant within the medial compartment. This document has been electronically signed by: Bereket Hernadnes MD on 11/06/2024 08:38:04
== END 2024-11-04 13:18 | disposition home or self-care (01) ==
LOC: HO.XRAY 13:17
PROVIDERS: PCP Internal Medicine; Visit Provider Internal Medicine
DX: I10 Essential (primary) hypertension (principal); E78.00 Pure hypercholesterolemia, unspecified; G89.29 Other chronic pain; R51.9 Headache, unspecified; R73.01 Impaired fasting glucose; K58.1 Irritable bowel syndrome with constipation; K21.9 Gastro-esophageal reflux disease without esophagitis; M25.561 Pain in right knee; F33.9 Major depressive disorder, recurrent, unspecified; E66.9 Obesity, unspecified; F17.200 Nicotine dependence, unspecified, uncomplicated; Z79.899 Other long term (current) drug therapy
CPT/HCPCS: 73564; 96127

== ENCOUNTER 2024-11-04 13:17 | Outpatient (AMB) | payer OTHER, SELFPAY ==
[2024-11-04 13:23] VITALS: BP 140/92; PULSE 74; O2SAT 94; BMI 31.5
--- NOTE | 2024-11-04 13:23 | MHC.PC.OV ---
"Vital Signs 11/04/24 13:23 Height 6 ft 1 in Weight 239 lb 2 oz BMI 31.5 BP 140/92 H Blood Pressure Location Lt brachial Position Sitting Pulse 74 Pulse Source Pulse Oximeter Pulse Oximetry (%) 94 Oxygen Delivery Method Room Air Intake Visit Reasons: hyperlipidemia Pediatric Assistant Required: No Accompanied by: Self / Same As Patient Allergies Sulfa (Sulfonamide Antibiotics) [SULFA (SULFONAMIDE ANTIBIOTICS)] Allergy (Intermediate, Verified 11/04/24 14:17) HIVES celecoxib [From Celebrex] Adverse Reaction (Verified 11/04/24 14:17) High blood pressure Medication List - Last Reconciled 11/04/24 by Neto Ahmadi MD bupropion HCl XL 150 mg PO QAM cetirizine 10 mg PO DAILY gabapentin 300 mg PO BID hydroxyzine HCl 100 mg PO BID PRN linaclotide (Linzess) 72 mcg PO DAILY mirtazapine 30 mg PO BEDTIME 90 days montelukast 10 mg PO QPM oxcarbazepine 750 mg PO BID pantoprazole 40 mg PO DAILY propranolol 40 mg PO BID propranolol 40 mg PO BID simvastatin 20 mg PO QPM Tobacco use date assessed: 11/04/24 Dental Screening Dental Screen Date: 11/04/24 Did you have a dental visit in the last 12 months?: Yes Did you have a dental problem in the last 6 months where you did not have access to dental care?: No Was dental information given to patient?: Patient has dentist HPI hyperlipidemia HPI Details Patient comes in today for his follow-up visit States that he feels okay although he is concerned that his blood pressure has been running high consistently over the past couple of months Patient brought in a log of his blood pressure readings over the past couple months showing systolic blood pressure mostly running from 140-160 mm consistently He denies any dizziness but still has on and off right-sided headaches although he states that these have not been occurring as often as they used to recently Denies any chest pains, no increased shortness of breath No nausea/vomiting, no abdominal pain No change in bowel habits noted - states that his constipation has been well controlled on his current medications and he is actually experiencing diarrhea now and would like to know if he can cut his medication dose in half States that he tried stopping his Linzess completely and he ended up constipated again Adds that he has been experiencing increased pain over his right knee over the past couple of weeks and has been noticing a frequent clicking sensation in his knee when he bends and extends it He denies any recent injury or trauma to his knee He had his follow-up labs done last week - to discuss his results [facility] Medical History (Updated 11/09/24 @ 19:35 by Neto Ahmadi MD) Essential hypertension Smoker Smoker Nicotine dependence, cigarettes, uncomplicated Obesity (BMI 30-39.9) Irritable bowel syndrome (IBS) Constipation Chronic right-sided headache Overweight (BMI 25.0-29.9) Depression GERD (gastroesophageal reflux disease) Pure hypercholesterolemia Surgical History History of left knee surgery Hx of colonoscopy (~08/26/18) Family History Father Medical history unknown Mother Medical history unknown Paternal Grandfather Cancer Social History Housing: House Alcohol intake: current Alcohol intake frequency: does not drink Alcohol type: beer Patient Tobacco Use Status: Current everyday Tobacco user Tobacco use type: Cigarette Cigarette Packs Per Day: 0.5 Cigarettes Per Day: 10 e-Cigarette/Vaping Use: Never Used Second Hand Smoke Exposure: Yes service: No Current occupational status: employed 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 1. Little interest or pleasure in doing things: more than half the days 2. Feeling down, depressed, or hopeless: more than half the days 3. Trouble falling or staying asleep, or sleeping too much: more than half the days 4. Feeling tired or having little energy: more than half the days 5. Poor appetite or overeating: not at all 6. Feeling bad about yourself - or that you are a failure or have let yourself or your family down: not at all 7. Trouble concentrating on things, such as reading the newspaper or watching television: not at all 8. Moving or speaking so slowly that other people could have noticed. Or the opposite - being so fidgety or restless that you have been moving around a lot more than usual: not at all 9. Thoughts that you would be better off or of hurting yourself in some way: not at all Total score: 8 Depression Screening Interpretation: Positive Depression Screening Follow-up: Existing condition and In treatment Depression Screening Done: Yes 00582 - PHQ-9 Billing: Yes Source: Developed by Drs. Bereket Tillman, Marie Fatima, Madi Loaiza and colleagues, with an educational odell from [employer] | [employer]. Thrive Questionnaire Date Thrive assessed: 11/04/24 I am a: Patient What is your living situation today?: I have a steady place to live Within the past 12 months, did the food you bought not last and you didn't have the money to get more?: Never true Within the past 12 months, did you worry whether your food would run out before you got money to buy more?: Never true Do you have trouble paying for medicines?: No Do you have trouble getting transportation to medical appointments?: No Do you have trouble paying your heating and electricity bill?: No Do you have trouble taking care of your child, family member or friend?: No Do you have trouble with day-to-day activities such as bathing, preparing meals, shopping, managing finances, etc.?: No Are you currently unemployed and looking for a job?: No Are you interested in more education?: No Please select the resources that you would like help with: None Currently or been in a relationship where the following occur: No concerns reported THRIVE Score: 0 AUDIT C Alcohol Use Questionnaire (AUDIT-C) 1. How often do you have a drink containing alcohol?: Monthly or less 2. How many drinks containing alcohol do you have on a typical day when you are drinking?: 1 or 2 3. How often do you have six or more drinks on one occasion?: Never Total Score: 1 Score Reviewed/Action Taken: Yes SANTI-7 AMB Questionnaire SANTI-7 Date SANTI - 7 assessed: 11/04/24 Feeling nervous, anxious, or on edge: 0 = Not at all Not being able to stop or control worryin = Not at all Worrying too much about different things: 0 = Not at all Trouble relaxin = Not at all Being so restless that it is hard to sit still: 0 = Not at all Becoming easily annoyed or irritable: 0 = Not at all Feeling afraid as if something awful might happen: 0 = Not at all Total SANTI-7 score (0-4 normal; 5-9 mild; 10-14 moderate; 15-21 severe): 0 Source: Developed by Drs. Bereket Tillman, Marie Fatima, Madi Loaiza and colleagues, with an educational odell from [employer] | [employer]. Review of Systems Const Denies chills, Denies fatigue, Denies fever(s) and Reports headache(s) (on and off, right-sided ) Eyes Denies blurry vision ENT Denies dysphagia, Denies dizziness, Denies otalgia, Reports headache(s) (on and off, right-sided ), Denies neck pain, Denies odynophagia and Denies sore throat Card Denies chest pain, Denies irregular heart rhythm, Denies palpitations and Denies dyspnea Resp Denies chest congestion, Denies cough and Denies dyspnea GI Denies abdominal pain, Reports constipation (is controlled on Rx), Denies dysphagia, Reports loose stools (lately when he takes his Linzess at his current dose), Denies nausea, Denies odynophagia and Denies vomiting Denies difficulty urinating, Denies dysuria, Denies nocturia and Denies urinary frequency Musc Denies back pain, Reports arthralgias (increasing pain in the right knee) and Denies neck pain Skin/Breast Denies rash Neuro Denies dizziness, Reports headache(s) (on and off, right-sided ) and Denies paresthesias Psych Reports depression (is controlled on Rx) Endo Denies fatigue and Denies palpitations Physical exam (Primary Care) Vital Signs: Last Vital Signs Pulse 74 11/04/24 13:23 BP 140/92 H 11/04/24 13:23 Pulse Ox 94 11/04/24 13:23 Oxygen Delivery Method Room Air 11/04/24 13:23 BMI result Body Mass Index 31.5 Tobacco/Smoking Status: Tobacco use Status Tobacco use date assessed 11/04/24 11/04/24 13:24 Patient Tobacco Use Status Current everyday Tobacco 11/04/24 13:24 Tobacco use type Cigarette 11/04/24 13:24 e-Cigarette/Vaping Use Never Used 11/04/24 13:24 PHQ-9: PHQ-9 Score PHQ-9: Total score 8 11/04/24 14:18 Depression Screening Interpretation: Positive Depression Screening Follow-up: Existing condition and In treatment Thrive Assessment: Date of Thrive Assessment Date Thrive assessed 11/04/24 11/04/24 13:24 Currently or been in a relationship where the following occur: No concerns reported Const General: no acute distress and alert HENMT Ears: TM's normal bilaterally and EAC's normal Throat: Yes posterior oropharynx normal and Yes tonsils normal (no TP congestion) Neck Neck: Yes supple and No lymphadenopathy Thyroid: Thyroid normal Resp Auscultation: clear to auscultation bilaterally, no rales and no wheezes Cardio Rate: regular rate Rhythm: regular rhythm Heart sounds: no murmurs GI Palpation (GI): Soft to palpation and nontender Auscultation: normal bowel sounds General: Yes no CVA tenderness Back/Spine/Pelvis Back: no CVA tenderness Thoracic/Lumbar Spine: No lumbar spinal tenderness Skin Rashes: no rashes Extrem General: Yes no clubbing, cyanosis or edema Right lower extremity: knee Details: tenderness Location: of the pre-patellar area and of the infrapatellar area, normal ROM and crepitus; no swelling Results Reviewed Results Reviewed: Laboratory Tests 10/29/24 10/29/24 06:29 06:33 WBC 6.9 Hgb 15.2 Hct 43.4 Plt Count 179 Sodium 130 L Potassium 4.5 Creatinine 0.89 Estimated GFR > 60 Fasting Glucose 120 H Hemoglobin A1c % 5.6 Calcium 9.2 AST 17 ALT 17 Triglycerides 101 Cholesterol 146 LDL Cholesterol, Calc 85 HDL Cholesterol 41 25-OH Vitamin D Total 68.0 TSH 1.24 Ur Specific [place] >= 1.030 H Urine Protein Trace Urine Glucose (UA) Negative Urine Blood Negative Urine Nitrite Negative Ur Leukocyte Esterase Negative Coding Level of Care Code Est Pt Level 4 (95365) Diagnoses Essential hypertension I10 Pure hypercholesterolemia E78.00 Chronic right-sided headache R51.9; G89.29 Impaired fasting glucose R73.01 Irritable bowel syndrome with constipation K58.1 Irritable bowel syndrome type: with constipation Gastroesophageal reflux disease, unspecified whether esophagitis present K21.9 Esophagitis presence: esophagitis presence not specified Right knee pain, unspecified chronicity M25.561 Chronicity: unspecified Episode of recurrent major depressive disorder, unspecified depression episode severity F33.9 Depression Type: major depressive disorder Major depression recurrence: recurrent Active/Remission status: currently active Major depression episode severity: unspecified Smoker F17.200 Obesity (BMI 30-39.9) E66.9 Additional Codes PHQ-9 - 47814 - PHQ-9 Billing: Yes ([id number]) Assessment & Plan Assessment & Plan (1) Essential hypertension: Code(s): I10 - Essential (primary) hypertension Category: Medical Plan: Discussed low-sodium diet with patient - goal is systolic BP of 120 mm or less Will go ahead and start him on Losartan 25 mg QD Patient is instructed to continue monitoring his blood pressure regularly (2) Pure hypercholesterolemia: Code(s): E78.00 - Pure hypercholesterolemia, unspecified Category: Medical Plan: Results of his labs done last week reviewed and discussed with patient Reinforced low cholesterol diet Continue Simvastatin 20 mg QD Will recheck his labs and fasting lipids again in 4 months for follow-up (3) Chronic right-sided headache: Comment: right-sided trigeminal neuralgia Code(s): R51.9 - Headache, unspecified; G89.29 - Other chronic pain Category: Medical Plan: Patient's headaches are primarily due to right-sided trigeminal neuralgia States that his headaches have been mostly well-controlled on his current Rx Continue Propranolol 40 mg BID, Oxcarbazepine 750 mg BID (he was switched over from Carbamazepine by neurology) and Gabapentin 300 mg BID Follow-up with [facility] Neurology as scheduled (4) Impaired fasting glucose: Code(s): R73.01 - Impaired fasting glucose Category: Medical Plan: His FBS was elevated at 120 mg/dl on his recent labs but his HgbA1c remains normal at 5.6%; HgbA1c was previously at 5.3% Reinforced low calorie diet/exercise as tolerated (5) Irritable bowel syndrome (IBS): Code(s): K58.9 - Irritable bowel syndrome, unspecified Category: Medical Qualifiers: Irritable bowel syndrome type: with constipation Qualified Code(s): K58.1 - Irritable bowel syndrome with constipation Plan: Reinforced increased oral fluids and dietary fiber Continue Senna 8.6 mg 1 to 2 tablets Q HS PRN He was previously on Linzess 145 mcg QD PRN but he stopped taking it as he has to stay home all day due to loose stool / frequent bowel movements for the whole day whenever he takes the Rx; got very constipation when he quit taking Linzess Will try lowering his Linzess now to 72 mcg QD PRN Follow up with [facility] Gastroenterology as scheduled (6) GERD (gastroesophageal reflux disease): Code(s): K21.9 - Gastro-esophageal reflux disease without esophagitis Category: Medical Qualifiers: Esophagitis presence: esophagitis presence not specified Qualified Code(s): K21.9 - Gastro-esophageal reflux disease without esophagitis Plan: Dietary restrictions reinforced Continue Omeprazole 20 mg QD Follow up with GI as scheduled (7) Right knee pain: Code(s): M25.561 - Pain in right knee Category: Medical Qualifiers: Chronicity: unspecified Qualified Code(s): M25.561 - Pain in right knee Plan: Will send patient for x-rays of the right knee for further evaluation (8) Depression: Code(s): F32.9 - Major depressive disorder, single episode, unspecified Category: Medical Qualifiers: Depression Type: major depressive disorder Major depression recurrence: recurrent Active/Remission status: currently active Major depression episode severity: unspecified Qualified Code(s): F33.9 - Major depressive disorder, recurrent, unspecified Plan: Continue Bupropion 150 mg Q AM and Mirtazapine 30 mg Q HS as well as Hydroxyzine 100 mg BID PRN Follow up with psychiatry as scheduled States that working and staying busy helps him cope better with his mood disorder (9) Smoker: Code(s): F17.200 - Nicotine dependence, unspecified, uncomplicated Category: Social Hx Plan: Patient is counseled again on smoking cessation (10) Obesity (BMI 30-39.9): Code(s): E66.9 - Obesity, unspecified Category: Medical Plan: Reinforced diet/exercise as tolerated/lose weight Plan Follow up in 3 months Orders: Orders Complete Blood Count Auto Diff 3 Months D64.9 - Anemia, unspecified Comprehensive Comins. Panel Fast 3 Months E78.00 - Pure hypercholesterolemia, unspecified Hemoglobin A1c 3 Months R73.01 - Impaired fasting glucose XR knee RT 4V 11/05/24 M25.561 - Pain in right knee Lipid Panel 3 Months E78.00 - Pure hypercholesterolemia, unspecified Medications: New losartan 25 mg PO DAILY 90 tabs 1RF 90 days diclofenac sodium 1% (Voltaren Arthritis Pain) apply to single knee, ankle, foot; for foot includes sole/toes/top of foot 4 grams topical QID PRN 100 grams 1RF joint pain Changed From linaclotide (Linzess) 145 mcg PO DAILY 90 caps 1RF K59.00 - Constipation, unspecified To linaclotide (Linzess) 72 mcg PO DAILY K59.00 - Constipation, unspecified"
== END 2024-11-04 14:33 | disposition home or self-care (01) ==
PROVIDERS: PCP Internal Medicine; Visit Provider Internal Medicine
DX: I10 Essential (primary) hypertension (principal); F33.9 Major depressive disorder, recurrent, unspecified; E66.9 Obesity, unspecified; Z68.31 Body mass index [BMI] 31.0-31.9, adult; E78.00 Pure hypercholesterolemia, unspecified; R51.9 Headache, unspecified; G89.29 Other chronic pain; R73.01 Impaired fasting glucose; K58.1 Irritable bowel syndrome with constipation; K21.9 Gastro-esophageal reflux disease without esophagitis; M25.561 Pain in right knee; F17.200 Nicotine dependence, unspecified, uncomplicated

== ENCOUNTER → 2024-11-05 10:27 | Outpatient (BNV) | payer OTHER, SELFPAY | PROVIDERS: PCP Internal Medicine; Visit Provider Radiology Diagnostic Radiology | DX: M25.561 Pain in right knee (principal) | CPT/HCPCS: 73564 ==

== ENCOUNTER 2024-12-04 12:02 | Outpatient (AMB) | payer OTHER, SELFPAY ==
--- NOTE | 2024-12-04 12:12 | MHC.OFFVIS ---
Intake Visit Reasons: OV -Lt Knee 06/11/24 NE Intake Note: Cheo is 54 year old male who presents today for a follow up of his Lt Knee 06/11/24 NE. He was instructed to remain out of work until 11/24/24 and then RTW FTRD. Allergies Sulfa (Sulfonamide Antibiotics) [SULFA (SULFONAMIDE ANTIBIOTICS)] Allergy (Intermediate, Verified 12/04/24 12:15) HIVES celecoxib [From Celebrex] Adverse Reaction (Verified 12/04/24 12:15) High blood pressure HPI HPI OV -Lt Knee 06/11/24 NE: Details: Cheo comes in today with persistent left knee and leg pain. He underwent surgery over 5 months ago. He had a medial meniscectomy and chondroplasty for chondromalacia of the medial femoral condyle. He has been out of work and done work hardening. He has improved from prior and ready to return to work today. He does not know that he can work more than 6 hours a shift but he is willing to do that. He continues to describe aching pain that extends over the lateral aspect of his left knee. He now describes some extension into the calf and down to the lateral ankle as well as involvement of the lateral and anterolateral aspect of the left femur. He describes occasional burning and numbness as well. [facility] Medical History (Updated 11/09/24 @ 19:35 by Neto Ahmadi MD) Essential hypertension Smoker Smoker Nicotine dependence, cigarettes, uncomplicated Obesity (BMI 30-39.9) Irritable bowel syndrome (IBS) Constipation Chronic right-sided headache Overweight (BMI 25.0-29.9) Depression GERD (gastroesophageal reflux disease) Pure hypercholesterolemia Surgical History History of left knee surgery Hx of colonoscopy (~08/26/18) Family History Father Medical history unknown Mother Medical history unknown Paternal Grandfather Cancer Social History Housing: House Alcohol intake: current Alcohol intake frequency: does not drink Alcohol type: beer Patient Tobacco Use Status: Current everyday Tobacco user Tobacco use type: Cigarette Cigarette Packs Per Day: 0.5 Cigarettes Per Day: 10 e-Cigarette/Vaping Use: Never Used Second Hand Smoke Exposure: Yes service: No Current occupational status: employed 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 There is some tightness in full extension in the calf muscle with no swelling or tenderness to palpation. He has a tight iliotibial band. I can not reproduce his pain but the epicenter pain is really anterolateral distal femur. There is no effusion in the knee in his stable to varus and valgus stress. The portals are well healed. He has full flexion. No joint line tenderness. Assessment & Plan Assessment & Plan (1) Tear of medial meniscus of left knee: Code(s): S83.242A - Other tear of medial meniscus, current injury, left knee, initial encounter Category: Medical Plan: 54-year-old gentleman status post meniscectomy ready to return to work. We will start off with no more than 6 hours per shift and also in the back in 6-8 weeks for re-evaluation. At that point I would anticipate a return to regular duty. (2) Left knee pain: Code(s): M25.562 - Pain in left knee Category: Medical Qualifiers: Chronicity: unspecified Qualified Code(s): M25.562 - Pain in left knee Plan: There is continual pain that can not be explained by his knee surgery. I think it would not be unreasonable to obtain an MRI of his lumbar spine as he does have persistent pain that could be radicular in nature. He was given a note to return to work. Orders: Orders MR lumbar spine wo con Today M25.562 - Pain in left knee, M79.672 - Pain in left foot Coding Level of Care Code Est Pt Level 3 (24763) Diagnoses Tear of medial meniscus of left knee S83.242A Left knee pain, unspecified chronicity M25.562 Chronicity: unspecified
== END 2024-12-04 12:50 | disposition home or self-care (01) ==
LOC: HO.HOS 12:02
PROVIDERS: PCP Internal Medicine; Visit Provider Orthopaedic Surgery
DX: S83.242A Other tear of medial meniscus, current injury, left knee, initial encounter (principal); M25.562 Pain in left knee; Z04.2 Encounter for examination and observation following work accident
CPT/HCPCS: 99213

== ENCOUNTER → 2024-12-04 12:02 | Outpatient (BNVA) | payer OTHER, SELFPAY | PROVIDERS: PCP Internal Medicine; Visit Provider Orthopaedic Surgery | DX: S83.242D Other tear of medial meniscus, current injury, left knee, subsequent encounter (principal); M25.562 Pain in left knee; M79.672 Pain in left foot; X58.XXXD Exposure to other specified factors, subsequent encounter; Z98.890 Other specified postprocedural states | CPT/HCPCS: 99212 ==

== ENCOUNTER 2025-01-13 14:02 | Outpatient (RCR) | payer OTHER, SELFPAY ==
--- NOTE | 2024-12-11 17:00 | MHC.PT.EP ---
[facility] [place] [facility] [place] [facility] [place] [facility] [address] Analilia Bruner [address] [phone] F: [phone] F: [phone] F: [phone] F: [phone] Physical Therapy Plan of Care Date of Evaluation: 12/11/24 Date of Surgery: Diagnosis: L knee medial meniscus tear Assessment: Pt is a 54 y/o male referred to PT for eval and treat of tear of media meniscus of L knee who reports his initial incident was tripping over a hydraulic hose while at work and injuring his L leg initially on 01/13/24 after losing his balance and his L lower leg twisted outward. He had immediate swelling and pain. He had previous PT at [facility] with minimal change so a medial meniscectomy with chondroplasty was performed on 06/11/24 after this he attended therapy at [facility] with some improvement of ROM and gait though persisted with pain. at this time he reports he is RTW though his current condition is resulting in decreased tolerance for negotiating stairs, performing squatting activities, standing and walking for duration secondary to decreased L knee flexion ROM with painful end range, decreased L SLS balance, gait abnormality decreased L LE strength, and pain. Pt is deemed an appropriate candidate to receive skilled PT services to address their physical impairments in order to improve their functional ability. Frequency and Duration: The patient will be seen 2 x/ wk x 5 wks. Short Term Goals: Initiate home program. Pt will improve baseline pain to at most 3/10; initial: 5-7/10 Residential Goals: I with home program. Improve LEFI outcome by at least 9 points. Pt will improve L knee extension strength by at least 1/2 MMT grade. Pt will be able to negotiate 1 fl of stairs with at most a little difficulty; initial: quite a bit of difficulty. Treatment Plan: Modalities to reduce pain, spasms and effusion. Manual therapy to restore motion and function. Therapeutic exercise to improve strength and flexibility. Neuromuscular re-education for posture and balance. Therapeutic activities to return to functional activities of daily living. Electronically signed by: Romaine Jimenes PT. Please sign and return to therapist. Thank you for your referral.
--- NOTE | 2025-08-10 07:55 | MHC.PT.DC ---
[facility] [place] Office [place] Office [place] Office [address] Analilia Bruner [address] [phone] F: [phone] F: [phone] F: [phone] F: [phone] Physical Therapy Discharge Report Diagnosis: L knee medial meniscus tear Date of Surgery: Date of Evaluation: 12/11/24 Date of Discharge: 08/10/25 Treatments to Date: 10 Cancellations to Date: No Shows to Date: Discharge Status: Improved Function Independent with HEP Discharge Summary: Pt did not f/u with last visit for final assessment. Electronically signed by: Romaine Jimenes PT. Please sign and return to therapist. Thank you for your referral.
== END 2025-08-10 07:55 | disposition home or self-care (01) ==
LOC: HO.PT 14:02
PROVIDERS: PCP Orthopaedic Surgery; Visit Provider Orthopaedic Surgery
DX: S83.242A Other tear of medial meniscus, current injury, left knee, initial encounter (principal)
CPT/HCPCS: 97110; 97112; 97161; 97530

== ENCOUNTER 2025-01-22 12:29 | Emergency (ER) | payer OTHER, SELFPAY ==
[2025-01-22] VITALS (7 sets, daily range): BP systolic 138–164; BP diastolic 51–99; PULSE 60–68; RESP 16–18; TEMP 36.4–36.7; O2SAT 96–98; BMI 32.8
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
== END 2025-01-22 20:07 | disposition home or self-care (01) ==
PROVIDERS: Emergency Provider Emergency Medicine; PCP Internal Medicine
DX: R51.9 Headache, unspecified (principal); S09.90XA Unspecified injury of head, initial encounter; V43.52XA Car driver injured in collision with other type car in traffic accident, initial encounter; Y93.9 Activity, unspecified; Y92.9 Unspecified place or not applicable; Y99.9 Unspecified external cause status
CPT/HCPCS: 70450; 72125; 99284

== ENCOUNTER → 2025-01-22 13:32 | Outpatient (BNV) | payer SELFPAY | PROVIDERS: Emergency Provider Emergency Medicine; PCP Internal Medicine; Visit Provider Radiology Diagnostic Radiology | DX: M54.2 Cervicalgia (principal); R51.9 Headache, unspecified | CPT/HCPCS: 70450; 72125 ==

== ENCOUNTER 2025-02-05 12:22 | Outpatient (AMB) | payer OTHER, SELFPAY ==
--- NOTE | 2025-02-05 12:31 | MHC.OFFVIS ---
Intake Visit Reasons: OV -Lt Knee 06/11/24 NE Intake Note: Cheo is a 54 year old male who presents today for a follow up of his left knee, s/p Left Knee 06/11/24. At his last visit it was discussed that his continual knee pain cannot be explained by his knee surgery, because of this an MRI or the Lumbar Spine was ordered. This MRI was denied by . Patient reports ongoing knee and ankle pain. Allergies Sulfa (Sulfonamide Antibiotics) [SULFA (SULFONAMIDE ANTIBIOTICS)] Allergy (Intermediate, Verified 02/05/25 12:31) HIVES celecoxib [From Celebrex] Adverse Reaction (Verified 02/05/25 12:31) High blood pressure HPI HPI OV -Lt Knee 06/11/24 NE: Details: Cheo is a 54 year old male who presents today for a follow up of his left knee, s/p Left Knee 06/11/24. At his last visit it was discussed that his continual knee pain cannot be explained by his knee surgery, because of this an MRI or the Lumbar Spine was ordered. This MRI was denied by [facility]. Patient reports ongoing knee and ankle pain. He has returned to working 6 hours a day. He states he has medial calf pain that extends into his ankle. He denies numbness and tingling. [facility] Medical History Essential hypertension Smoker Smoker Nicotine dependence, cigarettes, uncomplicated Obesity (BMI 30-39.9) Irritable bowel syndrome (IBS) Constipation Chronic right-sided headache Overweight (BMI 25.0-29.9) Depression GERD (gastroesophageal reflux disease) Pure hypercholesterolemia Surgical History History of left knee surgery Hx of colonoscopy (~08/26/18) Family History Father Medical history unknown Mother Medical history unknown Paternal Grandfather Cancer Social History Housing: House Unable to assess alcohol history related to: Unknown Alcohol intake: current Alcohol intake frequency: does not drink Alcohol type: beer Patient Tobacco Use Status: Current everyday Tobacco user Tobacco use type: Cigarette Cigarette Packs Per Day: 0.5 Cigarettes Per Day: 10 e-Cigarette/Vaping Use: Never Used Second Hand Smoke Exposure: Yes service: No Current occupational status: employed 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 No effusion. Stable to varus and valgus stress. 0-130 degrees motion. Office Procedures Joint Inj/Aspir; Non-Pain Clin Joint Injection/Drain Details: Injected 1 mL of Decadron and 3 mL 1% lidocaine and 3 mL of 0.25% Marcaine. Site was prepped using aseptic technique. Patient tolerated the procedure well. Shoulders, Hips, Knees, Knee Large Joint Injection : Left Knee Coding Procedure code (CPT) selection complete Assessment & Plan Assessment & Plan (1) Osteoarthritis of left knee: Code(s): M17.12 - Unilateral primary osteoarthritis, left knee Category: Medical Plan: Left knee pain. His exam is notable for mild tenderness laterally but no effusion and he also has some ipsilateral pain along the peroneal tendons and some posteromedial ankle pain. Difficult to identify what his pain generators are. He had a surgery in which she did have [id number] osteoarthritis involving the medial femoral condyle. At this point I injected his left knee and we will see if he feels any improvement. I recommend he return to work for 8 hours a day. Coding Level of Care Code Est Pt Level 3 (04230) Diagnoses Osteoarthritis of left knee M17.12 CPT Codes Shoulders, Hips, Knees, - Knee Large Joint Injection : Left Knee ([id number])
== END 2025-02-05 13:26 | disposition home or self-care (01) ==
LOC: HO.HOS 12:23
PROVIDERS: PCP Internal Medicine; Visit Provider Orthopaedic Surgery
DX: M17.12 Unilateral primary osteoarthritis, left knee (principal)
CPT/HCPCS: 20610; 99213

== ENCOUNTER → 2025-02-05 12:22 | Outpatient (BNVA) | payer OTHER, SELFPAY | PROVIDERS: PCP Internal Medicine; Visit Provider Orthopaedic Surgery | DX: M17.12 Unilateral primary osteoarthritis, left knee (principal) | CPT/HCPCS: 20610; 99212; J0665; J1100; J2003 ==

== ENCOUNTER 2025-03-02 12:26 | Outpatient (REF) | payer OTHER, SELFPAY ==
--- OUTSIDE RECORDS SUMMARY | 2025-03-02 13:47 | XMS_ITS | Patient Health Record ---
Author Organization [facility] Address [address] [place] [id number] Care Team Providers Care Housekeeper Cleaning Cooking Name Role Phone Neto Ahmadi MD Primary Care Provider Bereket Alfaro [phone] Reason For Referral No Information Medications Medication SIG (Take, Route, Frequency, Duration) Notes Start Date End Date Status Omeprazole 20 MG 1 Orally BID with food for 10 days 10/30/2019 Active Dicyclomine HCl 10 MG 1-2 Orally Three times a day prn abdominal bloating and discomfort for 30 Active carBAMazepine 200 MG 1 tablet in am 2 in pm Orally Twice a day Active Ranitidine HCl 150 MG 1 capsule at bedti me Orally Twice a day Takes this for hives and some reflux Active Cetirizine HCl 10 MG 1 tablet Orally twice a day Active Simvastatin 20 MG 1 tablet in the evening Orally Once a day Active Montelukast Sodium 10 MG TAKE 1 TABLET BY MOUTH EVERY EVENING Oral for 90 Active Amitriptyline HCl 25 MG TAKE 1 TABLET BY MOUTH EVERYDAY AT BEDTIME Oral for 90 Active Vitamin D 1000 UNIT TAKE 1 TABLET BY MOUTH EVERY DAY Oral Once a day Active Immunizations Vaccine Route Administration Date Status Comme nts Influenza Unknown 05/11/2018 Administered Influenza Unknown 06/10/2019 Administered Social History Tobacco Use: Social History Observation Description Date Details (start date - stop date) Current Smoker NA - NA Tobacco Use/Smoking Question Answer Notes Patient is a current smoker How often do you smoke cigarettes? every day How many cigarettes a day do you smoke? 6-10 Alcohol Screen Question Answer Notes Did you have a drink contain ing alcohol in the past year? Yes How often did you have a dri nk containing alcohol in the past year? Monthly or less (1 point) How many drinks did you have on a typical day when you were drinking in the past year? 1 or 2 drinks (0 point) Points 1 Interpretation Negative Section Notes: Smoker; drinks once per week Smoker 10 cigs QD; drinks o nce per week, but sometimes more than that Smoker 10 cigs QD; drinks 10 beers once per week, but sometimes more than that Smoker 10 cigs QD; he did cooley ve a history of drinking 10 beers once per week, but sometimes more than that --he has cut this down as of the 01/2020 visit Problems Problem Type SNOMED Code ICD Code Onset Dates Problem Status W/U Status Risk Notes Problem [id number] Encounter for screening for malignant neoplasm of colon (Z12.11) Active confirmed Problem 570173241 Abdominal bloating (R14.0) Active confirmed Problem 089564264107657 Preprocedural examination (Z01.818) Active confirmed Problem 47410879 Abdominal gas pain (R14.1) Active confirmed Problem 49261060 Generalized abdominal discomfort (R10.84) Active confirmed Plan Of Treatment Future Test Test Name Order Date COLONOSCOPY 07/18/2018 UPPER GI ENDOSCOPY 07/30/2019 Insurance Providers Payer Name Payer Address Payer Phone Subscriber Number Group Number Insured Name Patient Relationship to Insured Coverage Start Date Coverage End Date [facility] [address] [place] [phone] [id number] LANA QUESADA Self - patient is the insured Medical (General) History Medical History History ICD Code Denies [place],DM,CVA,Lung disease,renal dise ase Elevated cholesterol Allergies Headaches Neg abdominal U/S in 2014 Neg screening colonoscopy in 08/2018 exc ept internal hemorrhoids Upper endoscopy in October of 2019 revealed some mild gastritis with associated H. pylori, small hiatal hernia, and normal duodenal biopsies-he was treated with 10 days of omeprazole, amoxicillin, and Biaxin but without any relief of his abdominal bloating and discomfort Surgical History Surgery Date(Month/Year)
[2025-03-03 06:28] LABS: Mumps Virus IgG Antibody <9.00 AU/mL
[2025-03-03 11:38] LABS: Rubella IgG Antibody 9.39 Index
== END 2025-03-02 12:27 | disposition home or self-care (01) ==
LOC: HO.LAB 12:26
PROVIDERS: PCP Internal Medicine; Visit Provider Internal Medicine
DX: Z01.84 Encounter for antibody response examination (principal)
CPT/HCPCS: 36415; 86735; 86762; 86765

== ENCOUNTER 2025-04-27 14:37 | Outpatient (AMB) | payer OTHER, SELFPAY ==
--- OUTSIDE RECORDS SUMMARY | 2025-04-27 15:19 | XMS_ITS | Patient Health Record ---
Author Organization [facility] Address [address] [place] [id number] Care Team Providers Care Outbound Telemarketing Representative Name Role Phone Kayleen Ahmadi MDh Primary Care Provider Bereket Alfaro [phone] Reason For Referral No Information Medications Medication [...] Problem Status W/U Status Risk Notes Problem 028458437 Encounter for screening for malignant neoplasm of colon (Z12.11) Active confirmed Problem 133940576 Abdominal bloating (R14.0) Active confirmed Problem 077399011213419 Preprocedural examination (Z01.818) Active confirmed Problem 52330570 Abdominal gas pain (R14.1) Active confirmed Problem 07881820 Generalized abdominal discomfort (R10.84) Active confirmed Plan Of Treatment Future Test Test Name Order Date COLONOSCOPY 07/18/2018 UPPER GI ENDOSCOPY 07/30/2019 Insurance Providers Payer Name Payer Address Payer Phone Subscriber Number Group Number Insured Name Patient Relationship to Insured Coverage Start Date Coverage End Date [facility] [address] [place] [phone] [id number] LANA QUESADA Self - patient is the insured Medical (General) History Medical History History ICD Code Denies [place],DM,CVA,Lung disease,renal dise ase Elevated cholesterol Allergies Headaches [...]
--- OUTSIDE RECORDS SUMMARY | 2025-04-27 15:19 | XMS_ITS | Encounter Summary ---
Author Organization [facility] Address [address] [facility] [address] [place] [phone] Phone Care Team Providers Care Registered Dietetic Technician Name Role Phone Neto Ahmadi MD Primary Care Provider [phone] Encounter Details Date Type Department Care Team (Latest Contact Info) Description 07/19/2017 Transcribe Orders [facility] [address] [place] [address] Kalin Chamberlain MD, PhD [address] [place] [address] Dermatophytosis of nail (Primary Dx); Need for prophylactic chemotherapy Social History Tobacco Use Types Packs/Day Years Used Date Smoking Tobacco: Never Assessed Sex and Gender Information Value Date Recorded Sex Assigned at Not on file Legal Sex Male 3:24 PM EST Gender Identity Not on file Sexual Orientation Not on file documented as of this encounter Plan of Treatment Not on file documented as of this encounter Results * Alanine aminotransferase (ALT) (07/19/2017 4:03 PM EST) ALT 23 0 - 40 U/L [facility] Blood 07/19/2017 4:03 PM EST 07/19/2017 4:07 PM EST us Kalin Chamberlain MD, PhD LAB BLOOD ORDERABLES F inal Result [facility] [address] [place] [address] * Aspartate aminotransferase (AST) (07/19/2017 4:03 PM EST) AST 29 0 - 37 U/L [facility] Blood 07/19/2017 4:03 PM EST 07/19/2017 4:07 PM EST Kalin Chamberlain MD, PhD LAB BLOOD ORDERABLES F inal Result [address] [address] * Creatinine/eGFR (07/19/2017 4:03 PM EST) CREATININE 0.90 0.5 - 1.5 mg/dL [facility] EGFR >60 >60 mL/min/1.7 3m2 [facility] Comment:Abnormal if <60. If patient is -Mongolian, multiply the result by 1.21. Blood 07/19/2017 4:03 PM EST 07/19/2017 4:07 PM EST Kalin Chamberlain MD, PhD LAB BLOOD ORDERABLES F inal Result Performing Organization Address City/[facility]/ZIP Co de Phone Number [address] [address] documented in this encounter Visit Diagnoses Diagnosis Dermatophytosis of nail- Primary Need for prophylactic chemotherapy Need for other prophylactic chemotherapy documented in this encounter Care Teams Registered Dietetic Technician Relationship Specialty Start Date End Date Neto Ahmadi MD [address] [place] [address] [place] [address] PCP - General Internal Medicine 07/19/17 documented as of this encounter Additional Source Comments The information contained in this document represents components of the legal health record. It is not the complete legal health record.[facility]
== END 2025-04-27 14:41 | disposition home or self-care (01) ==
LOC: HO.HMGAL 14:37
PROVIDERS: PCP Internal Medicine; Visit Provider Registered Nurse Emergency
DX: J30.89 Other allergic rhinitis (principal)
CPT/HCPCS: 95117; 95165

== ENCOUNTER 2025-05-18 09:44 | Outpatient (AMB) | payer OTHER, SELFPAY ==
[2025-05-18 09:48] VITALS: BP 166/98; PULSE 60; TEMP 36.6; O2SAT 98; BMI 32.8
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
--- OUTSIDE RECORDS SUMMARY | 2025-05-18 11:09 | XMS_ITS | Encounter Summary ---
Author Organization [facility] Address [address] [facility] [address] [place] [address] Phone Care Team Providers Care Firearms Model Maker Name Role Phone Neto Ahmadi MD Primary Care Provider +1 -[phone] Encounter Details Date Type Department Care Team (Latest Contact Info) Description 07/19/2017 Transcribe Orders [facility] Laboratory [address] [place] [address] Kalin Chamberlain MD, PhD [address] [place] [address] Dermatophytosis of nail (Primary Dx); Need for [...] EST) ALT 23 0 - 40 U/L [facility] Blood 07/19/2017 4:03 PM EST 07/19/2017 4:07 PM EST us Kalin Chamberlain MD, PhD LAB BLOOD ORDERABLES F inal Result [facility] [address] [place] [address] * Aspartate aminotransferase (AST) (07/19/2017 4:03 PM EST) AST 29 0 - 37 U/L [facility] Blood 07/19/2017 4:03 PM EST 07/19/2017 4:07 PM EST Kalin Chamberlain MD, PhD LAB BLOOD ORDERABLES F inal Result [address] [address] * Creatinine/eGFR (07/19/2017 4:03 PM EST) CREATININE 0.90 0.5 - 1.5 mg/dL [facility] EGFR >60 >60 mL/min/1.7 3m2 [facility] Comment:Abnormal if <60. If patient is -Brazilian, multiply the result by 1.21. Blood 07/19/2017 4:03 PM EST 07/19/2017 4:07 PM EST Kalin Chamberlain MD, PhD LAB BLOOD ORDERABLES F inal Result Performing Organization Address City/[facility]/ZIP Co de Phone Number [address] [address] documented in this encounter Visit Diagnoses Diagnosis Dermatophytosis of nail- Primary Need for prophylactic chemotherapy Need for other prophylactic chemotherapy documented in this encounter Care Teams Firearms Model Maker Relationship Specialty Start Date End Date Neto Ahmadi MD [address] [place] [address] [place] [address] PCP - General Internal Medicine 07/19/17 documented as of this encounter Additional Source Comments The information contained in this document represents components of the legal health record. It is not the complete legal health record.[facility]
--- OUTSIDE RECORDS SUMMARY | 2025-05-18 11:09 | XMS_ITS | Clinical Summary ---
Author Organization [facility] Address [address] [facility] [address] [place] [address] Phone Care Team Providers Care Photographic Colorist Name Role Phone Neto Ahmadi MD Primary Care Provider +1 -[phone] Allergies No known active allergies Medications BUPROPION HCL ORAL Take 150 mg by mouth daily. 02/23/2022 Active hydrOXYzine (ATARAX) 50 MG tablet Take 50 mg by mouth 2 (two) times a day. 02/23/2022 Active gabapentin (NEURONTIN) 100 MG capsule Take 100 mg by mouth every morning. 10/18/2022 Active linaCLOtide (LINZESS) 72 mcg capsule Take 72 mcg by mouth daily as needed. 03/14/2022 Active mirtazapine (REMERON) 30 MG tablet Take 30 mg by mouth nightly at bedtime. 10/18/2022 Active montelukast (SINGULAIR) 10 mg tablet Take 10 mg by mouth daily. 08/17/2022 Active OXcarbazepine (TRILEPTAL) 600 MG tablet Take 600 mg by mouth 2 (two) times a day. 05/09/2022 Active pantoprazole (PROTONIX) 40 MG tablet Take 40 mg by mouth daily. 09/11/2022 Active propranoloL (INDERAL) 40 MG immediate release tablet Take 40 mg by mouth daily as needed. 1/2 tab BID prn 10/16/2022 Active simvastatin (ZOCOR) 20 MG tablet Take 20 mg by mouth daily. 08/09/2022 Active ketoconazole 2 % cream APPLY TO AFFECTED AREAS DAILY 08/15/2022 Active Active Problems Problem Noted Date Diagnosed Date Chronic toe pain, right foot 10/27/2022 Corns 10/27/2022 Social History Tobacco Use Types Packs/Day Years Used Date Smoking Tobacco: Every Day Cigarettes Smokeless Tobacco: Never Tobacco Cessation:Ready to Q uit: Not Asked; Counseling Given: Not Answered Alcohol Use Standard Drinks/Week Comments Yes 0 (1 standard drink = 0.6 oz pur e alcohol) Education Answer Date Recorded Are you interested in more education? Not on diamond e 01/05/2023 Are you concerned about learning? Not on file 01/05/2023 No 01/05/2023 No 01/05/2023 Digital Access Answer Date Recorded No 02/03/2023 No 02/03/2023 No 02/03/2023 Reliable internet access at home? Not on file 02/03/2023 Device with a working camera? Not on file Sex and Gender Information Value Date Recorded Sex Assigned at Not on file Legal Sex Male 3:24 PM EST Gender Identity Not on file Sexual Orientation Not on file Last Filed Vital Signs Vital Sign Reading Time Taken Comments Blood Pressure - - Pulse - - Temperature - - Respiratory Rate - - Oxygen Saturation - - Inhaled Oxygen Concentration - - Weight 100.2 kg (221 lb) 10/24/2022 8:48 AM EST Height 177.8 cm (5' 10 ) 10/24/2022 8:48 AM EST Body Mass Index 31.71 10/24/2022 8:48 AM EST Plan of Treatment Health Maintenance Due Date Last Done Comments Adult Td,Tdap Booster 1968 LIPID PANEL 1968 DEPRESSION SCREENING 1980 SMOKING Hx and SMOKELESS TOBACCO SCREENING 1981 HEPATITIS C SCREENING 1986 HIV ONE-TIME SCREENING (18-65 YEARS) 1986 PNEUMOCOCCAL VACCINES (50+ years) (1 of 2 - PCV) 1987 SCREENING FOR DIABETES 2003 COLOGUARD 2013 COLONOSCOPY 2013 COLORECTAL CANCER SCREENING 2013 FIT TEST 2013 FOBT 2013 SIGMOIDOSCOPY 2013 VIRTUAL COLONOSCOPY 2013 ZOSTER VACCINES (2 of 2) 11/13/2020 09/18/2020 INFLUENZA VACCINE (#1) 2025 9, 06/26/2018, 10/16/2017, Additional history exists COVID-19 VACCINE ( season) 2025 01/24/2021 HEPATITIS A VACCINES Aged Out No long er eligible based on patient's age to complete this topic HIB VACCINES Aged Out No longer eligi ble based on patient's age to complete this topic MENINGOCOCCAL VACCINES (ACWY) Aged Out No longer eligible based on patient's age to complete this topic MENINGOCOCCAL VACCINES (B) Aged Out N o longer eligible based on patient's age to complete this topic Medical Devices Not on file Insurance HMO HMO O O O H[place] [address] [address] [place] [address] HMO Care Teams Photographic Colorist Relationship Specialty Start Date End Date Neto Ahmadi MD [address] [place] [address] [place] [address] PCP - General Internal Medicine 07/19/17 Additional Source Comments The information contained in this document represents components of the legal health record. It is not the complete legal health record.[facility]
--- OUTSIDE RECORDS SUMMARY | 2025-05-18 11:09 | XMS_ITS | Patient Health Record ---
Author Organization [facility] Address [address] [place] [address] Care Team Providers Care Genetic Scientist Name Role Phone Kayleen Ahmadi MDh Primary Care Provider Bereket Alfaro [phone] Reason For Referral No Information Medications Medication [...] that Smoker 10 cigs QD; he did coolye ve a history of drinking 10 beers once per week, but sometimes more than that --he has cut this down as of the 01/2020 visit Problems Problem Type SNOMED Code ICD Code Onset Dates Problem Status W/U Status Risk Notes Problem [id number] Encounter for screening for malignant neoplasm of colon (Z12.11) Active confirmed Problem 685966193 Abdominal bloating (R14.0) Active confirmed Problem 732235756103622 Preprocedural examination (Z01.818) Active confirmed Problem 45677839 Abdominal gas pain (R14.1) Active confirmed Problem 19780538 Generalized abdominal discomfort (R10.84) Active confirmed Plan Of Treatment Future Test Test Name Order Date COLONOSCOPY 07/18/2018 UPPER GI ENDOSCOPY 07/30/2019 Insurance Providers Payer Name Payer Address Payer Phone Subscriber Number Group Number Insured Name Patient Relationship to Insured Coverage Start Date Coverage End Date [facility] [address] [place] [phone] [id number] LANA QUESADA Self - patient is the insured Medical (General) History Medical History History ICD Code Denies [place],DM,CVA,Lung disease,renal dise ase Elevated cholesterol Allergies Headaches [...]
== END 2025-05-18 12:17 | disposition home or self-care (01) ==
PROVIDERS: PCP Internal Medicine; Visit Provider Physician Assistant Medical
DX: H61.22 Impacted cerumen, left ear (principal)

== ENCOUNTER → 2025-05-18 09:44 | Outpatient (BNVA) | payer OTHER, SELFPAY | PROVIDERS: PCP Internal Medicine; Visit Provider Physician Assistant Medical | DX: H61.22 Impacted cerumen, left ear (principal) | CPT/HCPCS: 69209 ==

== ENCOUNTER 2025-05-23 07:09 | Outpatient (REF) | payer OTHER, SELFPAY ==
--- OUTSIDE RECORDS SUMMARY | 2025-05-23 07:11 | XMS_ITS | Encounter Summary ---
Author Organization [facility] Address [address] [address] [facility] [address] [place] [address] Phone Care Team Providers Care Operations Boardman Name Role Phone Neto Ahmadi MD Primary Care Provider [phone] [phone] Encounter Details Date Type Department Care Team (Latest Contact Info) Description 07/19/2017 Transcribe Orders [facility] Laboratory [address] [place] [address] Kalin Chamberlain MD, PhD [address] [place] [address] Dermatophytosis of nail (Primary Dx); Need for [...] EST) ALT 23 0 - 40 U/L [facility] Blood 07/19/2017 4:03 PM EST 07/19/2017 4:07 PM EST us Kalin Chamberlain MD, PhD LAB BLOOD ORDERABLES F inal Result [facility] [address] [place] [address] * Aspartate aminotransferase (AST) (07/19/2017 4:03 PM EST) AST 29 0 - 37 U/L [facility] Blood 07/19/2017 4:03 PM EST 07/19/2017 4:07 PM EST Kalin Chamberlain MD, PhD LAB BLOOD ORDERABLES F inal Result [address] [address] * Creatinine/eGFR (07/19/2017 4:03 PM EST) CREATININE 0.90 0.5 - 1.5 mg/dL [facility] EGFR >60 >60 mL/min/1.7 3m2 [facility] Comment:Abnormal if <60. If patient is -Cymraes, multiply the result by 1.21. Blood 07/19/2017 4:03 PM EST 07/19/2017 4:07 PM EST Kalin Chamberlain MD, PhD LAB BLOOD ORDERABLES F inal Result Performing Organization Address City/[facility]/ZIP Co de Phone Number [address] [address] documented in this encounter Visit Diagnoses Diagnosis Dermatophytosis of nail- Primary Need for prophylactic chemotherapy Need for other prophylactic chemotherapy documented in this encounter Care Teams Operations [place]man Relationship Specialty Start Date End Date Neto Ahmadi MD [address] [place] [address] [place] [address] PCP - General Internal Medicine 07/19/17 documented as of this encounter Additional Source Comments The information contained in this document represents components of the legal health record. It is not the complete legal health record.[facility]
--- OUTSIDE RECORDS SUMMARY | 2025-05-23 07:11 | XMS_ITS | Clinical Summary ---
Author Organization [facility] Address [address] [facility] [address] [place] [address] Phone Care Team Providers Care Software Engineer Intern Name Role Phone Neto Ahmadi MD Primary Care Provider +1 -[phone] Allergies No known active allergies Medications BUPROPION [...] HMO O O O HMO [place] [place] [address] HMO Care Teams Software Engineer Intern Relationship Specialty Start Date End Date Neto Ahmadi MD [address] [place] [address] [place] [address] PCP - General Internal Medicine 07/19/17 Additional Source Comments The information contained in this document represents components of the legal health record. It is not the complete legal health record.[facility]
--- OUTSIDE RECORDS SUMMARY | 2025-05-23 07:11 | XMS_ITS | Patient Health Record ---
Author Organization [facility] Address [address] [place] [address] Care Team Providers Care Spooler Operator Automatic Name Role Phone Neto Ahmadi MD Primary Care Provider Bereket Alfaro [phone] Reason For Referral No Information Medications Medication [...] Problem Status W/U Status Risk Notes Problem 197645997 Encounter for screening for malignant neoplasm of colon (Z12.11) Active confirmed Problem 231606400 Abdominal bloating (R14.0) Active confirmed Problem 768986469408095 Preprocedural examination (Z01.818) Active confirmed Problem 15989473 Abdominal gas pain (R14.1) Active confirmed Problem 17701132 Generalized abdominal discomfort (R10.84) Active confirmed Plan Of Treatment Future Test Test Name Order Date COLONOSCOPY 07/18/2018 UPPER GI ENDOSCOPY 07/30/2019 Insurance Providers Payer Name Payer Address Payer Phone Subscriber Number Group Number Insured Name Patient Relationship to Insured Coverage Start Date Coverage End Date [facility] [address] [place] [phone] [id number] LANA QUESADA Self - patient is the insured Medical (General) History Medical History History ICD Code Denies MD,DM,CVA,Lung disease,renal dise ase Elevated cholesterol Allergies Headaches [...]
[2025-05-23 07:20] LABS: MANUAL DIFF FLAG NO
[2025-05-23 08:05] LABS: Hematocrit 40.0 % (42.0-52.0); Hemoglobin 13.8 g/dl (14.0-18.0); Imm Gran Abs Auto 0.03 X10*3/uL (0.00-0.03); Imm Gran Pct Auto 0.4 % (0.0-0.4); Lymphocytes Absolute Auto 2.0 X10*3/uL (1.2-4.9); Mean Corpuscular HGB Conc 34.5 g/dl (31.0-36.0); Mean Corpuscular Hemoglobin 30.9 pg (27.0-33.0); Mean Corpuscular Volume 89.7 fL (80.0-98.0); NRBC Abs Auto 0.000 X10*3/uL (0.0-0.012); NRBC Pct Auto 0.0 /100WBC (0.0-0.2); Platelet Count 172 X10*3/uL (160-400); Red Blood Count 4.46 X10*6/uL (4.60-5.80); White Blood Count 7.1 X10*3/uL (4.8-10.8)
[2025-05-23 08:18] LABS: Hemoglobin A1C 131.2189 umol/L; Total Hemoglobin (HGBA1C) 3606.1587 umol/L
[2025-05-23 08:21] LABS: Appearance Urine Clear; Glucose Urine UA Negative (Negative); PH 6.0 (5.0-9.0); Specific Gravity - Urine 1.025 (1.005-1.025)
[2025-05-23 08:44] LABS: Alanine Aminotransferase 18 U/L (0-40); Albumin Level 4.3 g/dL (3.5-5.0); Alkaline Phosphatase 76 U/L (39-117); Anion Gap 11 (12-20); Aspartate Amino Transferase 25 U/L (5-37); Blood Urea Nitrogen 16 mg/dL (9-16); Calcium 8.6 mg/dL (8.4-10.2); Carbon Dioxide 26 mmol/L (22-29); Chloride 99 mmol/L (96-108); Cholesterol 145 mg/dL (<200); Estimated Glomerular Filt Rate > 60; HDL Cholesterol 39 mg/dL (>40); Potassium 4.2 mmol/L (3.3-5.1); Sodium 132 mmol/L (135-145); Total Protein 6.7 g/dL (6.5-8.0); Triglycerides 110 mg/dL (<150)
== END 2025-05-23 07:10 | disposition home or self-care (01) ==
LOC: HO.LAB 07:09
PROVIDERS: PCP Internal Medicine; Visit Provider Internal Medicine
DX: E11.9 Type 2 diabetes mellitus without complications (principal); E78.00 Pure hypercholesterolemia, unspecified; D64.9 Anemia, unspecified; E55.9 Vitamin D deficiency, unspecified; R30.0 Dysuria
CPT/HCPCS: 36415; 80053; 80061; 81003; 82306; 83036; 85025

== ENCOUNTER 2025-05-25 13:31 | Outpatient (AMB) | payer OTHER, SELFPAY ==
--- OUTSIDE RECORDS SUMMARY | 2025-05-25 18:46 | XMS_ITS | Clinical Summary ---
Author Organization [facility] Address [address] [facility] [address] [place] [address] Phone Care Team Providers Care Brand Sales Consultant Name Role Phone Neto Ahmadi MD Primary Care Provider +1 -[phone] Allergies No known active allergies Medications BUPROPION [...] HMO O O O HMO [place] [address] HMO Care Teams Brand Sales Consultant Relationship Specialty Start Date End Date Neto Ahmadi MD [address] [place] [address] [place] [address] PCP - General Internal Medicine 07/19/17 Additional Source Comments The information contained in this document represents components of the legal health record. It is not the complete legal health record.[facility]
--- OUTSIDE RECORDS SUMMARY | 2025-05-25 18:46 | XMS_ITS | Patient Health Record ---
Author Organization [facility] Address [address] [place] [address] Care Team Providers Care Hadoop Infrastructure Architect Name Role Phone Neto Ahmadi MD Primary Care Provider Bereket Alfaro [phone] Reason For Referral No Information Medications Medication [...] Problem Status W/U Status Risk Notes Problem 450522921 Encounter for screening for malignant neoplasm of colon (Z12.11) Active confirmed Problem 962858855 Abdominal bloating (R14.0) Active confirmed Problem 397003301841891 Preprocedural examination (Z01.818) Active confirmed Problem 60560331 Abdominal gas pain (R14.1) Active confirmed Problem 03846617 Generalized abdominal discomfort (R10.84) Active confirmed Plan Of Treatment Future Test Test Name Order Date COLONOSCOPY 07/18/2018 UPPER GI ENDOSCOPY 07/30/2019 Insurance Providers Payer Name Payer Address Payer Phone Subscriber Number Group Number Insured Name Patient Relationship to Insured Coverage Start Date Coverage End Date [facility] [address] [place] [phone] [id number] LANA QUESADA Self - patient is the insured Medical (General) History Medical History History ICD Code Denies [place],DM,CVA,Lung disease,renal dise ase Elevated cholesterol Allergies Headaches [...]
--- OUTSIDE RECORDS SUMMARY | 2025-05-25 18:46 | XMS_ITS | Encounter Summary ---
Author Organization [facility] Address [address] [employer] [facility] [address] [place] [address] Phone Care Team Providers Care Semiconductor Processing Technician Name Role Phone Neto Ahmadi MD Primary Care Provider +1 -[phone] Encounter Details Date Type Department Care Team (Latest Contact Info) Description 07/19/2017 Transcribe Orders [facility] Laboratory [address] [place] [address] Kalin Chamberlain MD, PhD [address] [place] [address] Dermatophytosis of nail (Primary Dx); Need for [...] EST) ALT 23 0 - 40 U/L [facility] Blood 07/19/2017 4:03 PM EST 07/19/2017 4:07 PM EST us Kalin Chamberlain MD, PhD LAB BLOOD ORDERABLES F inal Result [facility] [address] [place] [address] * Aspartate aminotransferase (AST) (07/19/2017 4:03 PM EST) AST 29 0 - 37 U/L [facility] Blood 07/19/2017 4:03 PM EST 07/19/2017 4:07 PM EST Kalin Chamberlain MD, PhD LAB BLOOD ORDERABLES F inal Result [address] [address] * Creatinine/eGFR (07/19/2017 4:03 PM EST) CREATININE 0.90 0.5 - 1.5 mg/dL [facility] EGFR >60 >60 mL/min/1.7 3m2 [facility] Comment:Abnormal if <60. If patient is -Yemeni, multiply the result by 1.21. Blood 07/19/2017 4:03 PM EST 07/19/2017 4:07 PM EST Kalin Chamberlain MD, PhD LAB BLOOD ORDERABLES F inal Result Performing Organization Address City/[facility]/ZIP Co de Phone Number [address] [address] documented in this encounter Visit Diagnoses Diagnosis Dermatophytosis of nail- Primary Need for prophylactic chemotherapy Need for other prophylactic chemotherapy documented in this encounter Care Teams Semiconductor Processing Technician Relationship Specialty Start Date End Date Neto Ahmadi MD [address] [place] [address] [place] [address] PCP - General Internal Medicine 07/19/17 documented as of this encounter Additional Source Comments The information contained in this document represents components of the legal health record. It is not the complete legal health record.[facility]
== END 2025-05-25 13:31 | disposition home or self-care (01) ==
LOC: HO.HMGAL 13:31
PROVIDERS: PCP Internal Medicine; Visit Provider Registered Nurse Emergency
DX: J30.89 Other allergic rhinitis (principal)
CPT/HCPCS: 95117; 95165

== ENCOUNTER 2025-05-27 14:07 | Outpatient (AMB) | payer OTHER, SELFPAY ==
[2025-05-27 14:10] VITALS: BP 140/100; PULSE 62; O2SAT 97; BMI 32.3
--- NOTE | 2025-05-27 14:10 | MHC.PC.OV ---
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 Mechanic Required: No Accompanied by: Self / Same As Patient Allergies Sulfa (Sulfonamide Antibiotics) (SULFA (SULFONAMIDE ANTIBIOTICS)) Allergy (Intermediate, Verified 05/27/25 14:34) HIVES celecoxib (From Celebrex) Adverse Reaction (Verified 05/27/25 14:34) High blood pressure Medication List - Last Reconciled 05/27/25 by Neto Ahmadi MD bupropion HCl XL 150 mg PO QAM cetirizine 10 mg PO DAILY cyclobenzaprine 10 mg PO TID PRN diclofenac sodium 1% (Voltaren Arthritis Pain) 4 grams topical QID PRN gabapentin mg PO DAILY gabapentin 100 mg PO QAM hydroxyzine HCl 100 mg PO BID PRN ibuprofen 600 mg PO TID PRN linaclotide (Linzess) 72 mcg PO DAILY losartan 50 mg PO DAILY 90 days meloxicam 15 mg PO DAILY mirtazapine 30 mg PO BEDTIME 90 days montelukast 10 mg PO QPM nystatin 1 appl topical BID oxcarbazepine 600 mg PO BID pantoprazole 40 mg PO DAILY propranolol 40 mg PO BID simvastatin 20 mg PO QPM Tobacco use date assessed: 05/27/25 Dental Screening Dental Screen Date: 05/27/25 Did you have a dental visit in the last 12 months?: Yes Did you have a dental problem in the last 6 months where you did not have access to dental care?: No Was dental information given to patient?: Patient has dentist HPI 3 month f/u HPI Details Patient comes in today for his follow-up visit States that he feels okay He denies any dizziness but still has on and off right-sided headaches although he states that these have not been occurring as often as they used to recently Denies any chest pains, no increased shortness of breath No nausea/vomiting, no abdominal pain No change in bowel habits noted He had his follow-up labs done last week - to discuss his results [facility] Medical History Essential hypertension Nicotine dependence, cigarettes, uncomplicated Obesity (BMI 30-39.9) Irritable bowel syndrome (IBS) Constipation Chronic right-sided headache Overweight (BMI 25.0-29.9) Depression GERD (gastroesophageal reflux disease) Pure hypercholesterolemia Surgical History History of left knee surgery Hx of colonoscopy (~08/26/18) Family History Father Medical history unknown Mother Medical history unknown Paternal Grandfather Cancer Social History Housing: House Unable to assess alcohol history related to: Unknown Alcohol intake: current Alcohol intake frequency: does not drink Alcohol type: beer Patient Tobacco Use Status: Current everyday Tobacco user Tobacco use type: Cigarette Cigarette Packs Per Day: 0.5 Cigarettes Per Day: 10 e-Cigarette/Vaping Use: Never Used Second Hand Smoke Exposure: Yes service: No Current occupational status: employed 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 1. Little interest or pleasure in doing things: nearly every day 2. Feeling down, depressed, or hopeless: nearly every day 3. Trouble falling or staying asleep, or sleeping too much: nearly every day 4. Feeling tired or having little energy: several days 5. Poor appetite or overeating: not at all 6. Feeling bad about yourself - or that you are a failure or have let yourself or your family down: not at all 7. Trouble concentrating on things, such as reading the newspaper or watching television: not at all 8. Moving or speaking so slowly that other people could have noticed. Or the opposite - being so fidgety or restless that you have been moving around a lot more than usual: not at all 9. Thoughts that you would be better off or of hurting yourself in some way: not at all Total score: 8 Depression Screening Interpretation: Positive Depression Screening Follow-up: Existing condition and In treatment Depression Screening Done: Yes 48875 - PHQ-9 Billing: Yes Source: Developed by Drs. Bereket Tillman, Marie Fatima, Madi Loaiza and colleagues, with an educational odell from [employer]. Thrive Questionnaire Date Thrive assessed: 05/27/25 I am a: Patient What is your living situation today?: I have a steady place to live Within the past 12 months, did the food you bought not last and you didn't have the money to get more?: Never true Within the past 12 months, did you worry whether your food would run out before you got money to buy more?: Never true Do you have trouble paying for medicines?: No Do you have trouble getting transportation to medical appointments?: No Do you have trouble paying your heating and electricity bill?: No Do you have trouble taking care of your child, family member or friend?: No Do you have trouble with day-to-day activities such as bathing, preparing meals, shopping, managing finances, etc.?: No Are you currently unemployed and looking for a job?: No Are you interested in more education?: No Please select the resources that you would like help with: None Currently or been in a relationship where the following occur: No concerns reported THRIVE Score: 0 AUDIT C Alcohol Use Questionnaire (AUDIT-C) 1. How often do you have a drink containing alcohol?: 2-4 times a month 2. How many drinks containing alcohol do you have on a typical day when you are drinking?: 1 or 2 3. How often do you have six or more drinks on one occasion?: Never Total Score: 2 Score Reviewed/Action Taken: Yes SANTI-7 AMB Questionnaire SANTI-7 Date SANTI - 7 assessed: 11/04/24 Feeling nervous, anxious, or on edge: 3 = Nearly every day Not being able to stop or control worryin = Nearly every day Worrying too much about different things: 3 = Nearly every day Trouble relaxin = Not at all Being so restless that it is hard to sit still: 0 = Not at all Becoming easily annoyed or irritable: 2 = More than half the days Feeling afraid as if something awful might happen: 0 = Not at all Total SANTI-7 score (0-4 normal; 5-9 mild; 10-14 moderate; 15-21 severe): 11 Source: Developed by Drs. Bereket Tillman, Marie Fatima, Madi Loaiza and colleagues, with an educational odell from [employer]. Review of Systems Const Denies chills, Denies fatigue, Denies fever(s) and Reports headache(s) (on and off, right-sided ) Eyes Denies blurry vision ENT Denies dysphagia, Denies dizziness, Denies otalgia, Reports headache(s) (on and off, right-sided ), Denies neck pain, Denies odynophagia and Denies sore throat Card Denies chest pain, Denies irregular heart rhythm, Denies palpitations and Denies dyspnea Resp Denies chest congestion, Denies cough and Denies dyspnea GI Denies abdominal pain, Reports constipation (is controlled on Rx), Denies dysphagia, Reports loose stools (lately when he takes his Linzess at his current dose), Denies nausea, Denies odynophagia and Denies vomiting Denies difficulty urinating, Denies dysuria, Denies nocturia and Denies urinary frequency Musc Denies back pain, Reports arthralgias (increasing pain in the right knee) and Denies neck pain Skin/Breast Denies rash Neuro Denies dizziness, Reports headache(s) (on and off, right-sided ) and Denies paresthesias Psych Reports depression (is controlled on Rx) Endo Denies fatigue and Denies palpitations Physical exam (Primary Care) Vital Signs: Last Vital Signs Pulse 62 05/27/25 14:10 BP 140/98 H 05/27/25 14:39 Pulse Ox 97 05/27/25 14:10 Oxygen Delivery Method Room Air 05/27/25 14:10 BMI result Body Mass Index 32.3 Tobacco/Smoking Status: Tobacco use Status Tobacco use date assessed 05/27/25 05/27/25 14:13 Patient Tobacco Use Status Current everyday Tobacco 05/27/25 14:13 Tobacco use type Cigarette 05/27/25 14:13 e-Cigarette/Vaping Use Never Used 05/27/25 14:13 Depression Screening Interpretation: Positive Depression Screening Follow-up: Existing condition and In treatment Thrive Assessment: Date of Thrive Assessment Date Thrive assessed 05/20/25 05/27/25 14:13 Currently or been in a relationship where the following occur: No concerns reported Const General: no acute distress and alert HENMT Ears: TM's normal bilaterally and EAC's normal Throat: Yes posterior oropharynx normal and Yes tonsils normal (no TP congestion) Neck Neck: Yes supple and No lymphadenopathy Thyroid: Thyroid normal Resp Auscultation: clear to auscultation bilaterally, no rales and no wheezes Cardio Rate: regular rate Rhythm: regular rhythm Heart sounds: no murmurs GI Palpation (GI): Soft to palpation and nontender Auscultation: normal bowel sounds General: Yes no CVA tenderness Back/Spine/Pelvis Back: no CVA tenderness Thoracic/Lumbar Spine: No lumbar spinal tenderness Skin Rashes: no rashes Extrem General: Yes no clubbing, cyanosis or edema Right lower extremity: knee Details: tenderness Location: of the pre-patellar area and of the infrapatellar area, normal ROM and crepitus; no swelling Results Reviewed Results Reviewed: Laboratory Tests 05/23/25 05/23/25 07:18 07:20 WBC 7.1 Hgb 13.8 L Hct 40.0 L Plt Count 172 Sodium 132 L Potassium 4.2 Creatinine 0.88 Estimated GFR > 60 Fasting Glucose 101 H Hemoglobin A1c % 5.5 Calcium 8.6 D AST 25 ALT 18 Triglycerides 110 Cholesterol 145 LDL Cholesterol, Calc 84 HDL Cholesterol 39 L 25-OH Vitamin D Total 52.9 Ur Specific [place] 1.025 Urine Protein Trace Urine Glucose (UA) Negative Urine Blood Negative Urine Nitrite Negative Ur Leukocyte Esterase Negative Coding Level of Care Code Est Pt Level 4 (33555) Diagnoses Essential hypertension I10 Pure hypercholesterolemia E78.00 Chronic right-sided headache R51.9; G89.29 Impaired fasting glucose R73.01 Irritable bowel syndrome with constipation K58.1 Irritable bowel syndrome type: with constipation Gastroesophageal reflux disease, unspecified whether esophagitis present K21.9 Esophagitis presence: esophagitis presence not specified Arthritis of right knee M17.11 Episode of recurrent major depressive disorder, unspecified depression episode severity F33.9 Active/Remission status: currently active Depression Type: major depressive disorder Major depression episode severity: unspecified Major depression recurrence: recurrent Smoker F17.200 Obesity (BMI 30-39.9) E66.9 Additional Codes PHQ-9 - 39298 - PHQ-9 Billing: Yes ([id number]) Assessment & Plan Assessment & Plan (1) Essential hypertension: Code(s): I10 - Essential (primary) hypertension Category: Medical Plan: Reinforced low-sodium diet with patient - goal is systolic BP of 120 mm or less Will increase his Losartan now from 50 mg to 75 mg QD Patient is reminded to continue monitoring his blood pressure regularly (2) Pure hypercholesterolemia: Code(s): E78.00 - Pure hypercholesterolemia, unspecified Category: Medical Plan: Results of his labs done last week reviewed and discussed with patient Reinforced low cholesterol diet Continue Simvastatin 20 mg QD Will recheck his labs and fasting lipids again in 4 months for follow-up (3) Chronic right-sided headache: Comment: right-sided trigeminal neuralgia Code(s): R51.9 - Headache, unspecified; G89.29 - Other chronic pain Category: Medical Plan: Patient's headaches are primarily due to right-sided trigeminal neuralgia States that his headaches have been mostly well-controlled on his current Rx Continue Propranolol 40 mg BID, Oxcarbazepine 600 mg BID (he was switched over from Carbamazepine by neurology) and Gabapentin 300 mg BID Follow-up with [facility] Neurology as scheduled (4) Impaired fasting glucose: Code(s): R73.01 - Impaired fasting glucose Category: Medical Plan: His FBS was at 101 mg/dl on his recent labs; his HgbA1c remains normal at 5.5% (was previously at 5.6% a few months ago) Reinforced low calorie diet/exercise as tolerated (5) Irritable bowel syndrome (IBS): Code(s): K58.9 - Irritable bowel syndrome, unspecified Category: Medical Qualifiers: Irritable bowel syndrome type: with constipation Qualified Code(s): K58.1 - Irritable bowel syndrome with constipation Plan: Reinforced increased oral fluids and dietary fiber Continue Senna 8.6 mg 1 to 2 tablets Q HS PRN and Linzess 72 mcg QD He was having loose stools and frequent bowel movements for the whole day while on Linzess 145 mcg QD PRN previously but got very constipated when he quit taking it completely Follow up with [facility] Gastroenterology as scheduled (6) GERD (gastroesophageal reflux disease): Code(s): K21.9 - Gastro-esophageal reflux disease without esophagitis Category: Medical Qualifiers: Esophagitis presence: esophagitis presence not specified Qualified Code(s): K21.9 - Gastro-esophageal reflux disease without esophagitis Plan: Dietary restrictions reinforced Continue Omeprazole 20 mg QD Follow up with GI as scheduled (7) Arthritis of right knee: Code(s): M17.11 - Unilateral primary osteoarthritis, right knee Category: Medical Plan: X-rays of the right knee done back in October 2024 revealed (+) osteoarthrosis most significant within the medial compartment Follow up with orthopedics as scheduled (8) Depression: Code(s): F32.9 - Major depressive disorder, single episode, unspecified Category: Medical Qualifiers: Active/Remission status: currently active Depression Type: major depressive disorder Major depression episode severity: unspecified Major depression recurrence: recurrent Qualified Code(s): F33.9 - Major depressive disorder, recurrent, unspecified Plan: Continue Bupropion 150 mg Q AM and Mirtazapine 30 mg Q HS as well as Hydroxyzine 100 mg BID PRN Follow up with psychiatry as scheduled States that working and staying busy helps him cope better with his mood disorder (9) Smoker: Code(s): F17.200 - Nicotine dependence, unspecified, uncomplicated Category: Social Hx Plan: Patient is counseled again on complete smoking cessation (10) Obesity (BMI 30-39.9): Code(s): E66.9 - Obesity, unspecified Category: Medical Plan: Reinforced diet/exercise as tolerated/lose weight Plan Follow up in 4 months Orders: Orders Comprehensive [place]. Panel Fast 4 Months E78.00 - Pure hypercholesterolemia, unspecified UA CC w/rflx Micro + Cult 4 Months R30.0 - Dysuria Complete Blood Count Auto Diff 4 Months D64.9 - Anemia, unspecified Lipid Panel 4 Months E78.00 - Pure hypercholesterolemia, unspecified TSH reflex Free T4 4 Months E78.00 - Pure hypercholesterolemia, unspecified Vitamin D 25-OH Total 4 Months E55.9 - Vitamin D deficiency, unspecified Medications: Changed From losartan 50 mg PO DAILY 90 days 90 tabs 1RF To losartan 75 mg (1.5 x 50 mg) PO DAILY 135 tabs 1RF 90 days
[2025-05-27 14:39] VITALS: BP 140/98
--- OUTSIDE RECORDS SUMMARY | 2025-05-27 17:52 | XMS_ITS | Encounter Summary ---
Author Organization [facility] Address [address] [facility] [address] [place] [address] Phone Care Team Providers Care Chip Bin Conveyor Tender Name Role Phone Neto Ahmadi MD Primary Care Provider [phone] Encounter Details Date Type Department Care Team (Latest Contact Info) Description 07/19/2017 Transcribe Orders [facility] [address] [place] [address] Kalin Chamberlain MD, PhD [address] [place] [address] Dermatophytosis of nail (Primary Dx); Need for [...] EST) ALT 23 0 - 40 U/L [facility] Blood 07/19/2017 4:03 PM EST 07/19/2017 4:07 PM EST us Kalin Chamberlain MD, PhD LAB BLOOD ORDERABLES F inal Result [facility] [address] [place] [address] * Aspartate aminotransferase (AST) (07/19/2017 4:03 PM EST) AST 29 0 - 37 U/L [facility] Blood 07/19/2017 4:03 PM EST 07/19/2017 4:07 PM EST Kalin Chamberlain MD, PhD LAB BLOOD ORDERABLES F inal Result [address] [address] * Creatinine/eGFR (07/19/2017 4:03 PM EST) CREATININE 0.90 0.5 - 1.5 mg/dL [facility] EGFR >60 >60 mL/min/1.7 3m2 [facility] Comment:Abnormal if <60. If patient is -Hungarian, multiply the result by 1.21. Blood 07/19/2017 4:03 PM EST 07/19/2017 4:07 PM EST Kalin Chamberlain MD, PhD LAB BLOOD ORDERABLES F inal Result Performing Organization Address City/[facility]/ZIP Co de Phone Number [address] [address] documented in this encounter Visit Diagnoses Diagnosis Dermatophytosis of nail- Primary Need for prophylactic chemotherapy Need for other prophylactic chemotherapy documented in this encounter Care Teams Chip Bin Conveyor Tender Relationship Specialty Start Date End Date Neto Ahmadi MD [address] [place] [address] [place] [address] PCP - General Internal Medicine 07/19/17 documented as of this encounter Additional Source Comments The information contained in this document represents components of the legal health record. It is not the complete legal health record.[facility]
--- OUTSIDE RECORDS SUMMARY | 2025-05-27 17:52 | XMS_ITS | Clinical Summary ---
Author Organization [facility] Address [address] [facility] [address] [place] [address] Phone Care Team Providers Care Suspender Maker Name Role Phone Neto Ahmadi MD Primary Care Provider [phone] Allergies No known active allergies Medications BUPROPION [...] HMO O O O H[place] [address] HMO Care Teams Suspender Maker Relationship Specialty Start Date End Date Neto Ahmadi MD [address] [place] [address] [place] [address] PCP - General Internal Medicine 07/19/17 Additional Source Comments The information contained in this document represents components of the legal health record. It is not the complete legal health record.[facility]
--- OUTSIDE RECORDS SUMMARY | 2025-05-27 17:52 | XMS_ITS | Patient Health Record ---
Author Organization [facility] Address [address] [place] [id number] Care Team Providers Care Equity Holder Name Role Phone Kayleen Ahmadi MDh Primary Care Provider Bereket Alfaro [phone] Reason For Referral No Information Medications Medication [...] Problem Status W/U Status Risk Notes Problem [id number] Encounter for screening for malignant neoplasm of colon (Z12.11) Active confirmed Problem [id number] Abdominal bloating (R14.0) Active confirmed Problem [id number] Preprocedural examination (Z01.818) Active confirmed Problem 77889808 Abdominal gas pain (R14.1) Active confirmed Problem 67014970 Generalized abdominal discomfort (R10.84) Active confirmed Plan Of Treatment Future Test Test Name Order Date COLONOSCOPY 07/18/2018 UPPER GI ENDOSCOPY 07/30/2019 Insurance Providers Payer Name Payer Address Payer Phone Subscriber Number Group Number Insured Name Patient Relationship to Insured Coverage Start Date Coverage End Date [facility] [address] [place] [phone] [id number] LANA QUESADA Self - patient is the insured Medical (General) History Medical History History ICD Code Denies LA,DM,CVA,Lung disease,renal dise ase Elevated cholesterol Allergies Headaches [...]
== END 2025-05-27 14:46 | disposition home or self-care (01) ==
LOC: HO.HMCH 14:07
PROVIDERS: PCP Internal Medicine; Visit Provider Internal Medicine
DX: I10 Essential (primary) hypertension (principal); E78.00 Pure hypercholesterolemia, unspecified; E66.9 Obesity, unspecified; Z68.32 Body mass index [BMI] 32.0-32.9, adult; R51.9 Headache, unspecified; G89.29 Other chronic pain; R73.01 Impaired fasting glucose; K58.1 Irritable bowel syndrome with constipation; K21.9 Gastro-esophageal reflux disease without esophagitis; M17.11 Unilateral primary osteoarthritis, right knee; F33.9 Major depressive disorder, recurrent, unspecified; F17.200 Nicotine dependence, unspecified, uncomplicated

== ENCOUNTER → 2025-05-27 14:07 | Outpatient (BNVA) | payer OTHER, SELFPAY | PROVIDERS: PCP Internal Medicine; Visit Provider Internal Medicine | DX: I10 Essential (primary) hypertension (principal); E78.00 Pure hypercholesterolemia, unspecified; R51.9 Headache, unspecified; G89.29 Other chronic pain; R73.01 Impaired fasting glucose; K58.1 Irritable bowel syndrome with constipation; K21.9 Gastro-esophageal reflux disease without esophagitis; M17.11 Unilateral primary osteoarthritis, right knee; F33.9 Major depressive disorder, recurrent, unspecified; E66.9 Obesity, unspecified; R30.0 Dysuria; D64.9 Anemia, unspecified; E55.9 Vitamin D deficiency, unspecified; F17.210 Nicotine dependence, cigarettes, uncomplicated; Z68.32 Body mass index [BMI] 32.0-32.9, adult | CPT/HCPCS: 96127 ==

== ENCOUNTER 2025-06-24 10:14 | Outpatient (AMB) | payer OTHER, SELFPAY ==
--- OUTSIDE RECORDS SUMMARY | 2025-06-24 12:06 | XMS_ITS | Encounter Summary ---
Author Organization [facility] Address [address] [facility] [address] [place] [address] Phone Care Team Providers Care Outfitter Cabin Name Role Phone Neto Ahmadi MD Primary Care Provider [phone] Encounter Details Date Type Department Care Team (Latest Contact Info) Description 07/19/2017 Transcribe Orders [facility] [address] [place] [address] Kalin Chamberlain MD, PhD [address] [place] [address] Dermatophytosis of nail (Primary Dx); Need for [...] EST) ALT 23 0 - 40 U/L [facility] Blood 07/19/2017 4:03 PM EST 07/19/2017 4:07 PM EST us Kalin Chamberlain MD, PhD LAB BLOOD ORDERABLES F inal Result [facility] [address] [place] [address] * Aspartate aminotransferase (AST) (07/19/2017 4:03 PM EST) AST 29 0 - 37 U/L [facility] Blood 07/19/2017 4:03 PM EST 07/19/2017 4:07 PM EST Kalin Chamberlain MD, PhD LAB BLOOD ORDERABLES F inal Result [address] [address] * Creatinine/eGFR (07/19/2017 4:03 PM EST) CREATININE 0.90 0.5 - 1.5 mg/dL [facility] EGFR >60 >60 mL/min/1.7 3m2 [facility] Comment:Abnormal if <60. If patient is -Russian, multiply the result by 1.21. Blood 07/19/2017 4:03 PM EST 07/19/2017 4:07 PM EST Kalin Chamberlain MD, PhD LAB BLOOD ORDERABLES F inal Result Performing Organization Address City/[facility]/ZIP Co de Phone Number [address] [address] documented in this encounter Visit Diagnoses Diagnosis Dermatophytosis of nail- Primary Need for prophylactic chemotherapy Need for other prophylactic chemotherapy documented in this encounter Care Teams Outfitter Cabin Relationship Specialty Start Date End Date Neto Ahmadi MD [address] [place] [address] [place] [address] PCP - General Internal Medicine 07/19/17 documented as of this encounter Additional Source Comments The information contained in this document represents components of the legal health record. It is not the complete legal health record.[facility]
--- OUTSIDE RECORDS SUMMARY | 2025-06-24 12:07 | XMS_ITS | Patient Health Record ---
Author Organization [facility] Address [address] [place] [address] Care Team Providers Care Machine Trimmer Name Role Phone Neto Ahmadi MD Primary Care Provider Bereket Alfaro [phone] Reason For Referral No Information Medications Medication SIG (Take, Route, Frequency, Duration) Notes Start Date End Date Status Omeprazole 20 MG 1 Orally BID with food; Duration: 10 days 10/30/2019 Active Dicyclomine HCl 10 MG 1-2 Orally Three times a day prn abdominal bloating and discomfort; Duration: 30 Active carBAMazepine 200 MG 1 tablet [...] TAKE 1 TABLET BY MOUTH EVERY EVENING Oral; Duration: 90 Active Amitriptyline HCl 25 MG TAKE 1 TABLET BY MOUTH EVERYDAY AT BEDTIME Oral; Duration: 90 Active Vitamin D 1000 UNIT TAKE [...] Problem Status W/U Status Risk Notes Problem Screening for malignant neoplasm of colon (410325579) Encounter for screening for malignant neoplasm of colon (Z12.11) Active confirmed Problem Abdominal bloating (136230782) Abdominal bloating (R14.0) Active confirmed Problem Preprocedural examination ([id number]) Preprocedural examination (Z01.818) Active confirmed Problem Flatulence, eructation and gas pain (060350729) Abdominal gas pain (R14.1) Active confirmed Problem Generalized abdominal pain (674220123) Generalized abdominal discomfort (R10.84) Active confirmed Plan Of Treatment Future Test Test Name Order Date COLONOSCOPY 07/18/2018 UPPER GI ENDOSCOPY 07/30/2019 Insurance Providers Payer Name Payer Address Payer Phone Subscriber Number Group Number Insured Name Patient Relationship to Insured Coverage Start Date Coverage End Date [facility] [address] [place] [phone] [id number] LANA QUESADA Self - patient is the insured Medical (General) History Medical History History ICD Code Denies ID,DM,CVA,Lung disease,renal dise ase Elevated cholesterol Allergies Headaches [...]
--- OUTSIDE RECORDS SUMMARY | 2025-06-24 12:07 | XMS_ITS | Clinical Summary ---
Author Organization [facility] Address [address] [facility] [address] [place] [address] Phone Care Team Providers Care Shanker Out Name Role Phone Neto Ahmadi MD Primary Care Provider +1 -[phone] Allergies No known active allergies Medications BUPROPION [...] 10/16/2017, Additional history exists COVID-19 VACCINE ( - 2024- season) 2025 01/24/2021 RSV VACCINE (1 - 1-dose 75+ series) 2043 HEPATITIS A VACCINES Aged Out No long [...] Devices Not on file Insurance HMO HMO HMO HMO HMO HMO O HMO HMO Care Teams Shanker Out Relationship Specialty Start Date End Date Neto Ahmadi MD [address] [place] [address] PCP - General Internal Medicine 07/19/17 Additional Source Comments The information contained in this document represents components of the legal health record. It is not the complete legal health record.[facility]
== END 2025-06-24 10:15 | disposition home or self-care (01) ==
LOC: HO.HMGAL 10:14
PROVIDERS: PCP Internal Medicine; Visit Provider Registered Nurse Emergency
DX: J30.89 Other allergic rhinitis (principal)
CPT/HCPCS: 95117; 95165

== ENCOUNTER 2025-07-03 15:25 | Outpatient (REF) | payer OTHER, SELFPAY ==
--- NOTE | ~2025-07-03 | CT_ITS ---
EXAMINATION: CT LUNG SCREENING HISTORY: F17.210 - Nicotine dependence, cigarettes, uncomplicated TECHNIQUE: Low dose axial images were obtained from the sternal notch to upper abdomen without IV contrast per standard departmental protocol. Sagittal and coronal reformatted images were also obtained and reviewed. One or more of the following techniques was used for dose reduction: Automated exposure control, adjustment of the mA and/or kV according to patient size, use of iterative reconstruction technique. DLP: 67 mGy-cm COMPARISON: Previous CT May 2024 FINDINGS: Lung nodules: 3 mm right upper lobe nodule axial image 29 series 5 is stable. 3 mm right lower lobe nodule axial image 65 series 5 is stable. 5 mm groundglass attenuation left lower lobe nodule axial image 94 series 5 is stable. No new or enlarging pulmonary nodule. Central airways are clear. Emphysema: none Coronary Calcification: none Aortic Arch Calcification: none Potentially Significant Incidentals : none Additional Chest Findings: There is no pleural or pericardial effusion. No mediastinal or axillary lymphadenopathy is identified. No chest wall mass. Visualized upper abdomen: Calcifications in the spleen probably from old granulomatous disease. Degenerative changes of the spine. CT/CT lung screening IMPRESSION: Stable small pulmonary nodules from May 2024. LUNG-RADS ASSESSMENT: Lung-RADS 2: Benign MANAGEMENT: Continue annual screening with LDCT in 12 months Category S: N/A Electronically signed by: Emily [place] MD 07/03/2025 04:03 PM EDT
--- OUTSIDE RECORDS SUMMARY | 2025-07-03 16:53 | XMS_ITS | Encounter Summary ---
Author Organization [facility] Address [address] [employer] [facility] [address] [place] [address] Phone Care Team Providers Care Top And Trim Worker Name Role Phone Neto Ahmadi MD Primary Care Provider +1 -[phone] Encounter Details Date Type Department Care Team (Latest Contact Info) Description 07/19/2017 Transcribe Orders [facility] Laboratory [address] [place] [address] Kalin Chamberlain MD, PhD [address] [place] [address] Dermatophytosis of nail (Primary Dx); Need for [...] EST) ALT 23 0 - 40 U/L [facility] Blood 07/19/2017 4:03 PM EST 07/19/2017 4:07 PM EST us Kalin Chamberlain MD, PhD LAB BLOOD ORDERABLES F inal Result [facility] [address] [place] [address] * Aspartate aminotransferase (AST) (07/19/2017 4:03 PM EST) AST 29 0 - 37 U/L [facility] Blood 07/19/2017 4:03 PM EST 07/19/2017 4:07 PM EST Kalin Chamberlain MD, PhD LAB BLOOD ORDERABLES F inal Result [address] [address] * Creatinine/eGFR (07/19/2017 4:03 PM EST) CREATININE 0.90 0.5 - 1.5 mg/dL [facility] EGFR >60 >60 mL/min/1.7 3m2 [facility] Comment:Abnormal if <60. If patient is -Guatemalan, multiply the result by 1.21. Blood 07/19/2017 4:03 PM EST 07/19/2017 4:07 PM EST Kalin Chamberlain MD, PhD LAB BLOOD ORDERABLES F inal Result Performing Organization Address City/[facility]/ZIP Co de Phone Number [address] [address] documented in this encounter Visit Diagnoses Diagnosis Dermatophytosis of nail- Primary Need for prophylactic chemotherapy Need for other prophylactic chemotherapy documented in this encounter Care Teams Top And Trim Worker Relationship Specialty Start Date End Date Neto Ahmadi MD [address] [place] [address] [place] [address] PCP - General Internal Medicine 07/19/17 documented as of this encounter Additional Source Comments The information contained in this document represents components of the legal health record. It is not the complete legal health record.[facility]
--- OUTSIDE RECORDS SUMMARY | 2025-07-03 16:53 | XMS_ITS | Clinical Summary ---
Author Organization [facility] Address [address] [facility] [address] [place] [address] Phone Care Team Providers Care Expander Name Role Phone Neto Ahmadi MD Primary Care Provider +1 [phone] Allergies No known active allergies Medications BUPROPION [...] HMO HMO O HMO HMO Care Teams Expander Relationship Specialty Start Date End Date Neto Ahmadi MD [address] [place] [address] PCP - General Internal Medicine 07/19/17 Additional Source Comments The information contained in this document represents components of the legal health record. It is not the complete legal health record.[facility]
--- OUTSIDE RECORDS SUMMARY | 2025-07-03 16:53 | XMS_ITS | Patient Health Record ---
Author Organization [facility] Address [address] [place] [address] Care Team Providers Care Fruit And Vegetable Inspector Name Role Phone Neto Ahmadi MD Primary Care Provider Bereket Alfaro [phone] Reason For Referral No Information Medications Medication [...] Problem Screening for malignant neoplasm of colon (532029942) Encounter for screening for malignant neoplasm of colon (Z12.11) Active confirmed Problem Abdominal bloating (955966312) Abdominal bloating (R14.0) Active confirmed Problem Preprocedural examination (808143770594910) Preprocedural examination (Z01.818) Active confirmed Problem Flatulence, eructation and gas pain (062176995) Abdominal gas pain (R14.1) Active confirmed Problem Generalized abdominal pain (556240820) Generalized abdominal discomfort (R10.84) Active confirmed Plan Of Treatment Future Test Test Name Order Date COLONOSCOPY 07/18/2018 UPPER GI ENDOSCOPY 07/30/2019 Insurance Providers Payer Name Payer Address Payer Phone Subscriber Number Group Number Insured Name Patient Relationship to Insured Coverage Start Date Coverage End Date [facility] [address] [place] [phone] [id number] LANA QUESADA Self - patient is the insured Medical (General) History Medical History History ICD Code Denies [place],DM,CVA,Lung disease,renal dise ase Elevated cholesterol Allergies Headaches [...]
== END 2025-07-03 15:26 | disposition home or self-care (01) ==
LOC: HO.CT 15:25
PROVIDERS: PCP Internal Medicine; Visit Provider Physician Assistant Medical
DX: Z12.2 Encounter for screening for malignant neoplasm of respiratory organs (principal); F17.210 Nicotine dependence, cigarettes, uncomplicated
CPT/HCPCS: 71271

== ENCOUNTER → 2025-07-03 15:26 | Outpatient (BNV) | payer OTHER, SELFPAY | PROVIDERS: PCP Internal Medicine; Visit Provider Radiology Diagnostic Radiology | DX: F17.210 Nicotine dependence, cigarettes, uncomplicated (principal) | CPT/HCPCS: 71271 ==

== ENCOUNTER 2025-07-22 09:36 | Outpatient (AMB) | payer OTHER, SELFPAY ==
--- OUTSIDE RECORDS SUMMARY | 2025-07-22 10:54 | XMS_ITS | Clinical Summary ---
Author Organization [facility] Address [address] [facility] [address] [place] [address] Phone Care Team Providers Care Machine Chocolate Molder Name Role Phone Neto Ahmadi MD Primary Care Provider [phone] [phone] Allergies No known active allergies Medications BUPROPION [...] on patient's age to complete this topic IPV VACCINES Aged Out No longer eligi ble based on patient's age to complete this topic MENINGOCOCCAL VACCINES (ACWY) Aged Out No longer eligible based on patient's age to complete this topic MENINGOCOCCAL VACCINES (B) Aged Out N o longer eligible based on patient's age to complete this topic Medical Devices Not on file Insurance HMO O HMO HMO HMO HMO HMO HMO O Care Teams Machine Chocolate Molder Relationship Specialty Start Date End Date Neto Ahmadi MD [address] [place] [address] [place] [address] PCP - General Internal Medicine 07/19/17 Additional Source Comments The information contained in this document represents components of the legal health record. It is not the complete legal health record.[facility]
--- OUTSIDE RECORDS SUMMARY | 2025-07-22 10:54 | XMS_ITS | Encounter Summary ---
Author Organization [facility] Address [address] [employer] [facility] [address] [place] [address] Phone Care Team Providers Care Salesperson Hearing Aids Name Role Phone Neto Ahmadi MD Primary Care Provider +1 [phone] Encounter Details Date Type Department Care Team (Latest Contact Info) Description 07/19/2017 Transcribe Orders [facility] [place] [address] [place] [address] Kalin Chamberlain MD, PhD [address] [place] [address] Dermatophytosis of nail (Primary Dx); Need for [...] EST) ALT 23 0 - 40 U/L [facility] Blood 07/19/2017 4:03 PM EST 07/19/2017 4:07 PM EST us Kalin Chamberlain MD, PhD LAB BLOOD BKR ORDERABL ES Final Result [facility] [address] [place] [address] * Aspartate aminotransferase (AST) (07/19/2017 4:03 PM EST) AST 29 0 - 37 U/L [facility] Blood 07/19/2017 4:03 PM EST 07/19/2017 4:07 PM EST Kalin Chamberlain MD, PhD LAB BLOOD BKR ORDERABL ES Final Result Performing Organization Address City/[facility]/ZIP Co de Phone Number [address] [address] * Creatinine/eGFR (07/19/2017 4:03 PM EST) CREATININE 0.90 0.5 - 1.5 mg/dL [facility] EGFR >60 >60 mL/min/1.7 3m2 [facility] Comment:Abnormal if <60. If patient is -Burmese, multiply the result by 1.21. Blood 07/19/2017 4:03 PM EST 07/19/2017 4:07 PM EST Kalin Chamberlain MD, PhD LAB BLOOD BKR ORDERABL ES Final Result Performing Organization Address City/[facility]/ZIP Co de Phone Number [address] [address] documented in this encounter Visit Diagnoses Diagnosis Dermatophytosis of nail- Primary Need for prophylactic chemotherapy Need for other prophylactic chemotherapy documented in this encounter Care Teams Salesperson Hearing Aids Relationship Specialty Start Date End Date Neto Ahmadi MD [address] [place] [address] [place] [address] PCP - General Internal Medicine 07/19/17 documented as of this encounter Additional Source Comments The information contained in this document represents components of the legal health record. It is not the complete legal health record.[facility]
--- OUTSIDE RECORDS SUMMARY | 2025-07-22 10:54 | XMS_ITS | Patient Health Record ---
Author Organization [facility] Address [address] [place] [address] Care Team Providers Care Head Loader Name Role Phone Neto Ahmadi MD Primary Care Provider Bereket Alfaro [phone] Reason For Referral No Information Medications Medication [...] Problem Screening for malignant neoplasm of colon (895926985) Encounter for screening for malignant neoplasm of colon (Z12.11) Active confirmed Problem Abdominal bloating (958636126) Abdominal bloating (R14.0) Active confirmed Problem Preprocedural examination (639352336734734) Preprocedural examination (Z01.818) Active confirmed Problem Flatulence, eructation and gas pain (836093431) Abdominal gas pain (R14.1) Active confirmed Problem Generalized abdominal pain (186732610) Generalized abdominal discomfort (R10.84) Active confirmed Plan Of Treatment Future Test Test Name Order Date COLONOSCOPY 07/18/2018 UPPER GI ENDOSCOPY 07/30/2019 Insurance Providers Payer Name Payer Address Payer Phone Subscriber Number Group Number Insured Name Patient Relationship to Insured Coverage Start Date Coverage End Date [facility] [address] [place] [phone] [id number] LANA QUESADA Self - patient is the insured Medical (General) History Medical History History ICD Code Denies [place],DM,CVA,Lung disease,renal dise ase Elevated cholesterol Allergies Headaches [...]
== END 2025-07-22 09:37 | disposition home or self-care (01) ==
LOC: HO.HMGAL 09:36
PROVIDERS: PCP Internal Medicine; Visit Provider Registered Nurse Emergency
DX: J30.89 Other allergic rhinitis (principal)
CPT/HCPCS: 95117; 95165

== ENCOUNTER 2025-08-10 13:26 | Outpatient (AMB) | payer OTHER, SELFPAY ==
--- OUTSIDE RECORDS SUMMARY | 2025-08-10 16:59 | XMS_ITS | Clinical Summary ---
Author Organization [facility] Address [address] [employer] [facility] [address] [place] [address] Phone Care Team Providers Care Scientific Photographer Name Role Phone Neto Ahmadi MD Primary Care Provider +1 -[phone] Allergies No known active allergies Medications BUPROPION [...] 06/26/2018, 10/16/2017, Additional history exists COVID-19 VACCINE (2024- season) 2025 01/24/2021 RSV VACCINE (1 - [...] on file Insurance HMO HMO HMO HMO O HMO HMO HMO HMO Care Teams Scientific Photographer Relationship Specialty Start Date End Date Neto Ahmadi MD [address] [place] [address] PCP - General Internal Medicine 07/19/17 Additional Source Comments The information contained in this document represents components of the legal health record. It is not the complete legal health record.[facility]
--- OUTSIDE RECORDS SUMMARY | 2025-08-10 16:59 | XMS_ITS | Encounter Summary ---
Author Organization [facility] Address [address] [employer] [facility] [address] [place] [address] Phone Care Team Providers Care Steel Rigger Name Role Phone Neto Ahmadi MD Primary Care Provider +1 -[phone] Encounter Details Date Type Department Care Team (Latest Contact Info) Description 07/19/2017 Transcribe Orders [facility] [place] [address] [place] [address] Kalin Chamberlain MD, PhD [address] [place] [address] Dermatophytosis of nail (Primary Dx); Need for [...] EST) ALT 23 0 - 40 U/L [facility] Blood 07/19/2017 4:03 PM EST 07/19/2017 4:07 PM EST us Kalin Chamberlain MD, PhD LAB BLOOD BKR ORDERABL ES Final Result [facility] [address] [place] [address] * Aspartate aminotransferase (AST) (07/19/2017 4:03 PM EST) AST 29 0 - 37 U/L [facility] Blood 07/19/2017 4:03 PM EST 07/19/2017 4:07 PM EST Kalin Chamberlain MD, PhD LAB BLOOD BKR ORDERABL ES Final Result Performing Organization Address City/[facility]/ZIP Co de Phone Number [address] [address] * Creatinine/eGFR (07/19/2017 4:03 PM EST) CREATININE 0.90 0.5 - 1.5 mg/dL [facility] EGFR >60 >60 mL/min/1.7 3m2 [facility] Comment:Abnormal if <60. If patient is -Argentine, multiply the result by 1.21. Blood 07/19/2017 4:03 PM EST 07/19/2017 4:07 PM EST Kalin Chamberlain MD, PhD LAB BLOOD BKR ORDERABL ES Final Result Performing Organization Address City/[facility] Co de Phone Number [address] [address] documented in this encounter Visit Diagnoses Diagnosis Dermatophytosis of nail- Primary Need for prophylactic chemotherapy Need for other prophylactic chemotherapy documented in this encounter Care Teams Steel Rigger Relationship Specialty Start Date End Date Neto Ahmadi MD [address] [place] [address] [place] [address] PCP - General Internal Medicine 07/19/17 documented as of this encounter Additional Source Comments The information contained in this document represents components of the legal health record. It is not the complete legal health record.[facility]
== END 2025-08-10 13:26 | disposition home or self-care (01) ==
LOC: HO.HMGAL 13:26
PROVIDERS: PCP Internal Medicine; Visit Provider Registered Nurse Emergency
DX: J30.89 Other allergic rhinitis (principal)
CPT/HCPCS: 95117; 95165

== ENCOUNTER 2025-09-09 09:42 | Outpatient (AMB) | payer OTHER, SELFPAY ==
--- OUTSIDE RECORDS SUMMARY | 2025-09-09 10:15 | XMS_ITS | Encounter Summary ---
Author Organization [facility] Address [address] [employer] [facility] [address] [place] [address] Phone Care Team Providers Care Apartment Community Assistant Manager Name Role Phone Neto Ahmadi MD Primary Care Provider +1 -[phone] Encounter Details Date Type Department Care Team (Latest Contact Info) Description 07/19/2017 Transcribe Orders [facility] [place] [address] [place] [address] Kalin Chamberlain MD, PhD [address] [place] [address] Dermatophytosis of nail (Primary Dx); Need for [...] EST) ALT 23 0 - 40 U/L [facility] Blood 07/19/2017 4:03 PM EST 07/19/2017 4:07 PM EST us Kalin Chamberlain MD, PhD LAB BLOOD BKR ORDERABL ES Final Result [facility] [address] [place] [address] * Aspartate aminotransferase (AST) (07/19/2017 4:03 PM EST) AST 29 0 - 37 U/L [facility] Blood 07/19/2017 4:03 PM EST 07/19/2017 4:07 PM EST Kalin Chamberlain MD, PhD LAB BLOOD BKR ORDERABL ES Final Result Performing Organization Address City/[facility]/ZIP Co de Phone Number [address] [address] * Creatinine/eGFR (07/19/2017 4:03 PM EST) CREATININE 0.90 0.5 - 1.5 mg/dL [facility] EGFR >60 >60 mL/min/1.7 3m2 [facility] Comment:Abnormal if <60. If patient is -Martiniquais, multiply the result by 1.21. Blood 07/19/2017 4:03 PM EST 07/19/2017 4:07 PM EST Kalin Chamberlain MD, PhD LAB BLOOD BKR ORDERABL ES Final Result Performing Organization Address City/[facility] Co de Phone Number [address] [address] documented in this encounter Visit Diagnoses Diagnosis Dermatophytosis of nail- Primary Need for prophylactic chemotherapy Need for other prophylactic chemotherapy documented in this encounter Care Teams Apartment Community Assistant Manager Relationship Specialty Start Date End Date Neto Ahmadi MD [address] [place] [address] [place] [address] PCP - General Internal Medicine 07/19/17 documented as of this encounter Additional Source Comments The information contained in this document represents components of the legal health record. It is not the complete legal health record.[facility]
--- OUTSIDE RECORDS SUMMARY | 2025-09-09 10:16 | XMS_ITS | Patient Health Record ---
Author Organization [facility] Address [address] [place] [address] Care Team Providers Care Trim Master Operator Name Role Phone Kayleen Ahmadi MDh Primary Care Provider Bereket Alfaro [phone] Reason For Referral No Information Medications Medication SIG (Take, Route, Frequency, Duration) Notes Start Date End Date Status Omeprazole 20 MG Capsule Delayed Release 1 Orally BID with food; Duration: 10 days 10/30/2019 Active Dicyclomine HCl 10 MG Capsule 1-2 Orally Three times a day prn abdominal bloating and discomfort; Duration: 30 Active carBAMazepine 200 MG Tablet 1 tablet in am 2 in pm Orally Twice a day Active raNITIdine HCl 150 MG Capsule 1 capsule at bedtime Orally Twice a day Takes this for hives and some reflux Active Cetirizine HCl 10 MG Tablet 1 tablet Orally twice a day Active Simvastatin 20 MG Tablet 1 tablet in the evening Orally Once a day Active Montelukast Sodium 10 MG Tablet TAKE 1 TABLET BY MOUTH EVERY EVENING Oral; Duration: 90 Active Amitriptyline HCl 25 MG Tablet TAKE 1 TABLET BY MOUTH EVERYDAY AT BEDTIME Oral; Duration: 90 Active Vitamin D 1000 UNIT Tablet TAKE 1 TABLET BY MOUTH EVERY DAY Oral Once a day Active Immunizations Vaccine Route Administration Date Status Comme nts Influenza Unknown 05/11/2018 Administered Influenza Unknown 06/10/2019 Administered Social History Tobacco Use: Social History Observation Description Date Details (start date - stop date) Current Smoker NA - NA Social History Drugs/Alcohol: Social Info Question Answer Notes Alcohol Screen Did you have a drink containing alcohol in the past year? Yes How often did you have a drink containing alcohol in the past year? Monthly or less (1 point) How many drinks did you have on a typical day when you were drinking in the past year? 1 or 2 drinks (0 point) Points 1 Interpretation Negative Tobacco Use: Social Info Question Answer Notes Tobacco Use/Smoking Patient is a current smoker How often do you smoke cigarettes? every day How many cigarettes a day do you smoke? 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 Section Notes: Smoker; drinks once per week [...] Problem Screening for malignant neoplasm of colon (007669398) Encounter for screening for malignant neoplasm of colon (Z12.11) Active confirmed Problem Abdominal bloating (802056171) Abdominal bloating (R14.0) Active confirmed Problem Preprocedural examination (613291369822762) Preprocedural examination (Z01.818) Active confirmed Problem Flatulence, eructation and gas pain (357995064) Abdominal gas pain (R14.1) Active confirmed Problem Generalized abdominal pain (509009392) Generalized abdominal discomfort (R10.84) Active confirmed Plan Of Treatment Future Test Test Name Order Date COLONOSCOPY 07/18/2018 UPPER GI ENDOSCOPY 07/30/2019 Insurance Providers Payer Name Payer Address Payer Phone Subscriber Number Group Number Insured Name Patient Relationship to Insured Coverage Start Date Coverage End Date [facility] [address] [place] [phone] [id number] SANGITA LANA Self - patient is the insured Medical (General) History Medical History History ICD Code Denies [place],DM,CVA,Lung disease,renal dise ase Elevated cholesterol Allergies Headaches [...]
--- OUTSIDE RECORDS SUMMARY | 2025-09-09 10:16 | XMS_ITS | Clinical Summary ---
Author Organization [facility] Address [address] [facility] [address] [place] [address] Phone Care Team Providers Care Legal Transcriptionist Name Role Phone Neto Ahmadi MD Primary Care Provider +1 -[phone] Allergies No known active allergies Medications BUPROPION [...] O HMO HMO HMO HMO Care Teams Legal Transcriptionist Relationship Specialty Start Date End Date Neto Ahmadi MD [address] [place] [address] PCP - General Internal Medicine 07/19/17 Additional Source Comments The information contained in this document represents components of the legal health record. It is not the complete legal health record.[facility]
== END 2025-09-09 09:42 | disposition home or self-care (01) ==
LOC: HO.HMGAL 09:42
PROVIDERS: PCP Internal Medicine; Visit Provider Registered Nurse Emergency
DX: J30.89 Other allergic rhinitis (principal)
CPT/HCPCS: 95117; 95165